=== PATIENT | female | born 1970 | race Caucasian/White ===

== ENCOUNTER 2016-08-05 19:05 | Emergency (ER) | payer OTHER ==
[~2016-08-05] VITALS: Ht 149.9 cm; Wt 102.3 kg
[~2016-08-05 19:05] MED LIST: ATV5X PO; CYM/30 PO; DESM0.1T8 PO; LEVO25TA5 PO; MONT1TAB3 PO; NRN600 PO; OMEP20CA9 PO; RANI150T2 PO; RBX500 PO; SIMV-151 PO
[2016-08-05] MEDS ORDERED: DSY/150 PO (19:25)
[2016-08-05] MEDS ORDERED: TEMA30CA4 PO (19:25)
[2016-08-05] MEDS ORDERED: HYDR-5688 PO (19:25)
[2016-08-05 19:27] VITALS: Ht 149.9 cm; Wt 102.3 kg
[2016-08-05 19:38] VITALS: O2SAT 97
[2016-08-05] MEDS ORDERED: SODIUM CHLORIDE 0.9% 1000ML 1,000 ML IV STA (19:42)
[2016-08-05] MEDS ORDERED: ONDANSETRON 8 MG/54 ML D5W IV STA (19:42)
[2016-08-05 20:08] LABS: BASO % 0.3 %; BASO ABS # 0.02 K/uL (0-0.2); COMPLETE YES; EOS % 1.5 %; HEMATOCRIT 35.8 % (37-47); IG% 0.1 %; LYMPH % 35.3 %; MEAN CELL VOLUME 87.3 fL (80-100); MEAN CORPUSCULAR HEMOGLOBIN 29.3 pg (25-34); MEAN CORPUSCULAR HGB CONC 33.5 g/dl (32-36); MEAN PLATELET VOLUME 9.5 fL (7.4-10.4); NEUT % 53.8 %; PLATELET COUNT 312 K/uL (130-400); WHITE BLOOD COUNT 6.79 K/uL (4.8-10.8)
--- NOTE | 2016-08-05 20:18 | DIAGNOSTIC IMAGING REPORT ---
CT SCAN OF THE BRAIN WITHOUT IV CONTRAST CLINICAL HISTORY: Weakness. Change in mental status. COMPARISON STUDY: CT of the brain dated 03/23/2016. TECHNIQUE: Unenhanced axial CT scan of the brain is performed from the vertex to the skull base. Automated dose control exposure was utilized. CT DOSE: 537.48 mGy.cm FINDINGS: Brain parenchyma: The brain parenchyma is normal in appearance. There is no hemorrhage, mass effect, or evidence of acute territorial ischemia by CT criteria. Bhatia-white matter is preserved. No extra-axial fluid collection is seen. Ventricles, sulci, cisterns: Normal in configuration. Intracranial vasculature: The visualized intracranial vasculature at the skull base is normal in appearance. Calvarium: Unremarkable. Sinuses and mastoids: There is evidence of previous paranasal sinus surgery. The visualized paranasal sinuses are clear. The mastoid air cells are well pneumatized. Orbits: The bony orbits are grossly intact. IMPRESSION: No acute intracranial abnormality. Electronically signed by: Js Bennett M.D. 08/05/2016 8:16 PM Dictated Date/Time: 08/05/2016 8:15 PM
[2016-08-05 20:19] LABS: INR 1.1 (0.9-1.1); PARTIAL THROMBOPLASTIN RATIO 1.3; PROTHROMBIN TIME (PATIENT) 11.7 SECONDS (9.0-12.0)
[2016-08-05 20:23] LABS: ALT/SGPT 38 U/L (12-78); AST/SGOT 14 U/L (15-37); BLOOD UREA NITROGEN 10 mg/dl (7-18); BUN/CREATININE RATIO 13.4 (10-20); CALCIUM 8.7 mg/dl (8.5-10.1); CARBON DIOXIDE 26 mmol/L (21-32); CHLORIDE 107 mmol/L (98-107); CREATININE 0.71 mg/dl (0.60-1.20); GLUCOSE 99 mg/dl (70-99); MAGNESIUM 2.4 mg/dl (1.8-2.4); POTASSIUM 3.5 mmol/L (3.5-5.1); SODIUM 142 mmol/L (136-145)
[2016-08-05 20:32] LABS: ALKALINE PHOSPHATASE 74 U/L (45-117); CKMB/CK RATIO 0.9 (0-3.0); THYROID STIMULATING HORMONE 0.618 uIu/ml (0.300-4.500)
--- NOTE | 2016-08-05 20:38 | DIAGNOSTIC IMAGING REPORT ---
SINGLE VIEW CHEST CLINICAL HISTORY: Weakness. Change in mental status. FINDINGS: An AP, portable, upright chest radiograph is compared to study dated 04/11/2016. Correlation is made with chest CT dated 01/28/2016. The examination is degraded by portable technique, large body habitus, and patient rotation. The cardiomediastinal silhouette is unremarkable. The lungs and pleural spaces are clear. No pneumothorax is seen. The bony thorax is grossly intact. IMPRESSION: No active disease in the chest. Electronically signed by: Js Bennett M.D. 08/05/2016 8:37 PM Dictated Date/Time: 08/05/2016 8:37 PM
[2016-08-05] MEDS ORDERED: TOPI50TA16 PO (20:39)
[2016-08-05] MEDS ORDERED: RIBOCAP PO (20:39)
[2016-08-05] MEDS ORDERED: MAGN400T6 PO (20:39)
[2016-08-05] MEDS ORDERED: LVNIS100 SQ (20:39)
[2016-08-05] MEDS ORDERED: DULO-24 PO (20:39)
[2016-08-05] MEDS ORDERED: METF500T5 PO (20:39)
[2016-08-05 20:43] LABS: URINE APPEARANCE CLEAR (CLEAR); URINE BILIRUBIN NEG (NEG); URINE COLOR DK YELLOW; URINE NITRITE NEG (NEG); URINE PH 6.5 (4.5-7.5); URINE SPECIFIC GRAVITY 1.016 (1.000-1.030); UROBILINOGEN NEG (NEG); ZZUR CULT IF INDIC CLEAN CATCH NO
--- NOTE | 2016-08-05 20:46 | EMERGENCY ROOM VISIT NOTE ---
History Report prepared by Cl: Emory Collado Under the Supervision of: Dr. Julito Ty D.O. First contact with patient: 19:33 Chief Complaint: SYNCOPE Stated Complaint: SYNCOPE History of Present Illness The patient is a 46 year old female who presents to the Emergency Room with complaints of an episode of syncope occurring earlier today. Per the nurse, she has had a headache all day to day, and had a syncopal episode. She has had pain in the back of her head and neck rated a 10/10 in severity. She has a history of syncope. She has numbness and tingling in her left hand radiating to her fingers. She is currently dizzy and slightly nauseous. 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 The fall was witnessed by the patient's daughter. Per the patient's daughter, she did not notice if she hit her head. After the fall, the patient was unconscious, but was awaken with verbal stimuli. She did not vomit. The patient is on Xarelto from a blood clot in her lungs from this past January. She has a follow-up appointment next week, along with an MRA. The patient admits to a history of migraines, and notes they are occurring more frequently. Source of History: patient, family, nursing staff Onset: earlier today Position: other (global) Quality: other (syncope) Timing: other (episode) Associated Symptoms: + nausea, + neck pain, + numbness, + weakness, No vomiting Note: The patient notes having dizziness, and head pain. Review of Systems See HPI for pertinent positives & negatives. A total of 10 systems reviewed and were otherwise negative. Past Medical & Surgical Medical Problems: (1) Asthma (2) Bronchitis (3) Fibromyalgia (4) Hyperlipidemia (5) Hypothyroidism (6) Irritable bowel syndrome Surgical Problems: (1) History of carpal tunnel surgery (2) History of delivery (3) History of cholecystectomy (4) History of hernia repair (5) History of tonsillectomy (6) History of uvulectomy (7) Status post breast reduction Family History Diabetes mellitus Gallbladder disease Heart disease Kidney disease Kidney stones Social History Smoking Status: Former Smoker Alcohol Use: occasionally Marital Status: in relationship Housing Status: lives with significant other Occupation Status: employed Current/Historical Medications Scheduled Desmopressin Acetate (Desmopressin Acetate), 0.1 MG PO BID Duloxetine Hcl (Cymbalta), 80 MG PO DAILY Gabapentin (Gabapentin), 900 MG PO TID Levothyroxine Sodium (Levothyroxine Sodium), 25 MCG PO QAM Magnesium Oxide (Mag-Ox), 200 MG PO BID Metformin Hcl Er (Glucophage Er), 500 MG PO QPM Montelukast Sodium (Singulair), 10 MG PO HS Omeprazole (Prilosec), 20 MG PO DAILY Ranitidine HCl (Ranitidine HCl), 150 MG PO BID Riboflavin (B-2-400), 400 MG PO DAILY Rivaroxaban (Xarelto), 20 MG PO DAILY Simvastatin (Simvastatin), 20 MG PO HS Topiramate (Topamax), 50 MG PO HS Trazodone HCl (Trazodone HCl), 150 MG PO HS Scheduled PRN Lorazepam (Lorazepam), 0.5 MG PO UD PRN for Anxiety Methocarbamol (Methocarbamol), 500 MG PO QID PRN for Muscle Spasm Temazepam (Restoril), 30 MG PO HS PRN for Sleep Allergies Coded Allergies: Bupropion (Verified Allergy, Severe, SKIN BREAKDOWN, 04/10/16) Loracarbef (Verified Allergy, Intermediate, HIVES, 04/10/16) Naproxen (Verified Allergy, Intermediate, HIVES, 04/10/16) Penicillins (Verified Allergy, Intermediate, HIVES, 04/10/16) Sulfa Antibiotics (Verified Allergy, Intermediate, HIVES, 04/10/16) Torsemide (Verified Allergy, Intermediate, HIVES - PATIENT CAN TOLERATE LASIX, 04/10/16) Cephalosporins (Verified Allergy, Unknown, hives, 04/10/16) Hydrochlorothiazide (Unverified Allergy, Unknown, UNKNOWN, 04/10/16) Physical Exam Vital Signs Date Time Temp Pulse Resp B/P Pulse Ox O2 Delivery O2 Flow Rate FiO2 08/05/16 19:48 75 18 118/79 85 125/84 90 127/71 08/05/16 19:38 97 Room Air 08/05/16 19:29 82 08/05/16 19:27 36.7 79 18 120/78 98 Room Air Physical Exam CONSTITUTIONAL/VITAL SIGNS: Reviewed / noted above. GENERAL: Non-toxic in appearance. INTEGUMENTARY: Warm, dry, and [place]. HEAD: Normocephalic. EYES: without scleral icterus or trauma. ENT/OROPHARYNX: clear and moist. LYMPHADENOPATHY/NECK: Is supple without lymphadenopathy or meningismus. RESPIRATORY: Lungs clear and equal. CARDIOVASCULAR: Regular rate and rhythm. GI/ABDOMEN: Soft and nontender. No organomegaly or pulsatile mass. No rebound or guarding. Normal bowel sounds. EXTREMITIES: Warm and well perfused. BACK: No CVA tenderness. NEUROLOGICAL: Intact without focal deficits. PSYCHIATRIC: normal affect. MUSCULOSKELETAL: Normally developed with good muscle tone. Medical Decision & Procedures ER Provider Diagnostic Interpretation: Radiology results as stated below per my review and radiologist interpretation: CT SCAN OF THE BRAIN WITHOUT IV CONTRAST FINDINGS: Brain parenchyma: The brain parenchyma is normal in appearance. There is no hemorrhage, mass effect, or evidence of acute territorial ischemia by CT criteria. Bhatia-white matter is preserved. No extra-axial fluid collection is seen. Ventricles, sulci, cisterns: Normal in configuration. Intracranial vasculature: The visualized intracranial vasculature at the skull base is normal in appearance. Calvarium: Unremarkable. Sinuses and mastoids: There is evidence of previous paranasal sinus surgery. The visualized paranasal sinuses are clear. The mastoid air cells are well pneumatized. Orbits: The bony orbits are grossly intact. IMPRESSION: No acute intracranial abnormality. Electronically signed by: Js Bennett M.D. 08/05/2016 8:16 PM Dictated Date/Time: 08/05/2016 8:15 PM SINGLE VIEW CHEST FINDINGS: An AP, portable, upright chest radiograph is compared to study dated 04/11/2016. Correlation is made with chest CT dated 01/28/2016. The examination is degraded by portable technique, large body habitus, and patient rotation. The cardiomediastinal silhouette is unremarkable. The lungs and pleural spaces are clear. No pneumothorax is seen. The bony thorax is grossly intact. IMPRESSION: No active disease in the chest. Electronically signed by: Js Bennett M.D. 08/05/2016 8:37 PM Dictated Date/Time: 08/05/2016 8:37 PM Laboratory Results 08/05/16 19:50 Red Blood Count 4.10, Mean Corpuscular Volume 87.3, Mean Corpuscular Hemoglobin 29.3, Mean Corpuscular Hemoglobin Concent 33.5, Mean Platelet Volume 9.5, Neutrophils (%) (Auto) 53.8, Lymphocytes (%) (Auto) 35.3, Monocytes (%) (Auto) 9.0, Eosinophils (%) (Auto) 1.5, Basophils (%) (Auto) 0.3, Neutrophils # (Auto) 3.65, Lymphocytes # (Auto) 2.40, Monocytes # (Auto) 0.61, Eosinophils # (Auto) 0.10, Basophils # (Auto) 0.02 08/05/16 19:50 Test 08/05/16 19:50 08/05/16 20:08 White Blood Count 6.79 K/uL (4.8-10.8) Red Blood Count 4.10 M/uL (4.2-5.4) Hemoglobin 12.0 g/dL (12.0-16.0) Hematocrit 35.8 % (37-47) Mean Corpuscular Volume 87.3 fL (80-100) Mean Corpuscular Hemoglobin 29.3 pg (25-34) Mean Corpuscular Hemoglobin Concent 33.5 g/dl (32-36) Platelet Count 312 K/uL (130-400) Mean Platelet Volume 9.5 fL (7.4-10.4) Neutrophils (%) (Auto) 53.8 % Lymphocytes (%) (Auto) 35.3 % Monocytes (%) (Auto) 9.0 % Eosinophils (%) (Auto) 1.5 % Basophils (%) (Auto) 0.3 % Neutrophils # (Auto) 3.65 K/uL (1.4-6.5) Lymphocytes # (Auto) 2.40 K/uL (1.2-3.4) Monocytes # (Auto) 0.61 K/uL (0.11-0.59) Eosinophils # (Auto) 0.10 K/uL (0-0.5) Basophils # (Auto) 0.02 K/uL (0-0.2) RDW Standard Deviation 48.1 fL (36.4-46.3) RDW Coefficient of Variation 14.9 % (11.5-14.5) Immature Granulocyte % (Auto) 0.1 % Immature Granulocyte # (Auto) 0.01 K/uL (0.00-0.02) Prothrombin Time 11.7 SECONDS (9.0-12.0) Prothromb Time International Ratio 1.1 (0.9-1.1) Activated Partial Thromboplast Time 33.4 SECONDS (21.0-31.0) Partial Thromboplastin Ratio 1.3 Anion Gap 9.0 mmol/L (3-11) Est Creatinine Clear Calc Drug Dose 103.4 ml/min Estimated GFR () 117.6 Estimated GFR (Non- 101.4 BUN/Creatinine Ratio 13.4 (10-20) Calcium Level 8.7 mg/dl (8.5-10.1) Magnesium Level 2.4 mg/dl (1.8-2.4) Total Bilirubin 0.3 mg/dl (0.2-1) Direct Bilirubin < 0.1 mg/dl (0-0.2) Aspartate Amino Transf (AST/SGOT) 14 U/L (15-37) Alanine Aminotransferase (ALT/SGPT) 38 U/L (12-78) Alkaline Phosphatase 74 U/L (45-117) Total Creatine Kinase 90 U/L (26-192) Creatine Kinase MB 0.8 ng/ml (0.5-3.6) Creatine Kinase MB Ratio 0.9 (0-3.0) Troponin I < 0.015 ng/ml (0-0.045) Total Protein 7.1 gm/dl (6.4-8.2) Albumin 4.0 gm/dl (3.4-5.0) Lipase 160 U/L (73-393) Thyroid Stimulating Hormone (TSH) 0.618 uIu/ml (0.300-4.500) Urine Color DK YELLOW Urine Appearance CLEAR (CLEAR) Urine pH 6.5 (4.5-7.5) Urine Specific [place] 1.016 (1.000-1.030) Urine Protein NEG (NEG) Urine Glucose (UA) NEG (NEG) Urine Ketones NEG (NEG) Urine Occult Blood NEG (NEG) Urine Nitrite NEG (NEG) Urine Bilirubin NEG (NEG) Urine Urobilinogen NEG (NEG) Urine Leukocyte Esterase SMALL (NEG) Urine WBC (Auto) 1-5 /hpf (0-5) Urine RBC (Auto) 0-4 /hpf (0-4) Urine Hyaline Casts (Auto) 0 /lpf (0-5) Urine Epithelial Cells (Auto) 5-10 /lpf (0-5) Urine Bacteria (Auto) NEG (NEG) Laboratory results as stated above per my review. Medications Administered Medications (Trade) Dose Ordered Sig/Tyler Route Start Time Stop Time Status Last Admin Dose Admin Sodium Chloride (Nss 1000ml) 1,000 ml @ 999 mls/hr Q1H1M STAT IV 08/05/16 19:42 08/05/16 20:42 DC 08/05/16 20:05 999 MLS/HR Ondansetron HCl (Zofran 8mg Iv) 8 mg NOW STAT IV 08/05/16 19:42 08/05/16 19:43 DC 08/05/16 20:06 8 MG ECG Indication: syncope Rate (beats per minute): 67 Rhythm: normal sinus Findings: no acute ischemic change, no ectopy ED Course 1933: Previous medical records were reviewed. The patient was evaluated in room B5. A complete history and physical examination was performed. 1941: Ordered Ondansetron HCl 8 mg IV, and NSS 1,000 ml @ 999 mls/hr IV. 2047: On reevaluation, the patient is doing well. I discussed the results and findings with the patient. She verbalized agreement of the treatment plan. The patient was discharged home. Medical Decision Differential includes acute cardiac dysrhythmia, microinfarction, CVA, TIA, dehydration, anemia, electrolyte disturbance, seizure, trauma, intracranial bleeding, acute vascular catastrophe, thoracic aortic dissection, PE, abdominal aortic aneurysm rupture. This is a 46-year-old female who presents to the ED with a chief complaint of syncope. The patient's states that she has had a headache all day. 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 She developed nausea and dizziness at that time as well. The patient was near her daughter and her daughter states she did not hit her head. The patient states that this is happened once before and she was told it was related to migraines. The patient reported some numbness in her left arm in the left distal forearm. She did not have any diaphoresis or seizure-like activity. The patient awoke shortly after the occurrence. She is brought here by EMS. Her neurological exam and physical exam are normal this time. She is on anticoagulation for history of PE. She denies any specific complaints other than nausea and headache at this time. CT scan of the brain was negative for acute disease. A chest x-ray is negative for acute disease. CBC and complete metabolic panel were normal. Troponin is negative. TSH is normal. The patient 's cause for syncope is unclear at this time. It does not appear there is any significant medical process or metabolic process found this time per she does not appear to have suffered any trauma. The patient is felt to be stable for discharge. This could be related to her previous migraine related syncope as she was told prior. At the time of discharge, the patient did request something for headache. She declined Toradol as she states that she is on anticoagulation. The patient was treated with Decadron IV, Compazine IV and Benadryl IV. She is felt to be stable for discharge. Impression Primary Impression: Syncope Scribe Attestation The scribe's documentation has been prepared under my direction and personally reviewed by me in its entirety. I confirm that the note above accurately reflects all work, treatment, procedures, and medical decision making performed by me. Departure Information Dispostion Home / Self-Care Referrals Jamia Carlton D.O. (PCP) Patient Instructions ED Near Syncope [facility], [facility] Additional Instructions Follow-up with your doctor for further care and evaluation in 1-5 days. Return to the emergency department for worsening or new symptoms or any concerns. You have been examined and treated today on an emergency basis only. This is not a substitute for, or an effort to provide, complete comprehensive medical care. It is impossible to recognize and treat all injuries or illnesses in a single emergency department visit. It is therefore important that you follow up closely with your doctor. Call as soon as possible for an appointment.
[2016-08-05 20:47] LABS: MANUAL MICROSCOPIC REQUIRED? NO; REVIEW REQ? NO
[2016-08-05] MEDS ORDERED: KETOROLAC TROMETHAMINE 30 MG/ML VIAL IV STA (21:04)
[2016-08-05] MEDS ORDERED: DiphenhydrAMINE HCL 50 MG/ML VIAL IV STA (21:06)
[2016-08-05] MEDS ORDERED: PROCHLORPERAZINE 5 MG/ML 2 ML VIAL IV STA (21:06)
[2016-08-05] MEDS ORDERED: DEXAMETHASONE SOD INJ 10 MG/ML VIAL IV ONE (21:15)
[2016-08-05 21:24] VITALS: BP 127/71; PULSE 90; TEMP 36.7; O2SAT 97
[2016-08-05] MEDS ORDERED: RIVA1TAB4 PO (23:28)
[2016-11-01] MEDS ORDERED: DULO60CA44 PO (14:05)
[2016-11-01] MEDS ORDERED: DICY20TA35 PO (14:05)
[2016-11-01] MEDS ORDERED: FLUT0.15 (14:05)
[2016-11-01] MEDS ORDERED: HYDR-5688 PO (14:05)
[2016-11-01] MEDS ORDERED: MECL1TAB42 PO (14:05)
[2016-11-01] MEDS ORDERED: METH1TAB81 PO (14:05)
[2016-11-01] MEDS ORDERED: OMEP40CA41 PO (14:05)
[2016-11-01] MEDS ORDERED: TRAZ50TA35 PO (14:05)
[2016-11-01] MEDS ORDERED: TRAZ100T29 PO (14:05)
[2016-11-25] MEDS ORDERED: ENOX40IN SQ (13:26)
[2016-11-25] MEDS ORDERED: RXC5 PO (13:26)
== END 2016-08-05 21:24 | disposition home or self-care (01) ==
LOC: EDBD 19:05 → C.EDB 19:06
DX: R55 Syncope and collapse (principal); E78.5 Hyperlipidemia, unspecified; E03.9 Hypothyroidism, unspecified; J45.909 Unspecified asthma, uncomplicated; K58.9 Irritable bowel syndrome, unspecified; Z90.49 Acquired absence of other specified parts of digestive tract; Z98.890 Other specified postprocedural states; Z87.891 Personal history of nicotine dependence; Z79.899 Other long term (current) drug therapy; Z88.0 Allergy status to penicillin; Z88.2 Allergy status to sulfonamides; Z88.8 Allergy status to other drugs, medicaments and biological substances; Z83.3 Family history of diabetes mellitus; Z83.79 Family history of other diseases of the digestive system; Z82.49 Family history of ischemic heart disease and other diseases of the circulatory system; Z84.1 Family history of disorders of kidney and ureter

== ENCOUNTER 2016-10-06 15:05 | Emergency (ER) | payer OTHER ==
[~2016-10-06] VITALS: Ht 149.9 cm; Wt 94.6 kg
[~2016-10-06 15:05] MED LIST changes: -CYM/30 PO; +DSY/150 PO; +DULO-24 PO; +MAGN400T6 PO; +METF500T5 PO; +RIBOCAP PO; +RIVA1TAB4 PO; +TEMA30CA4 PO; +TOPI50TA16 PO
[2016-10-06 15:08] VITALS: TEMP 36.6; Ht 149.9 cm; Wt 94.6 kg
[2016-10-06] MEDS ORDERED: ONDANSETRON INJ 2 MG/ML 2 ML VIAL IV STA (15:46)
[2016-10-06] MEDS ORDERED: SODIUM CHLORIDE 0.9% 1000ML 1,000 ML IV STA (15:46)
[2016-10-06] MEDS ORDERED: OPTIRAY 320 IV PRN (16:00)
[2016-10-06] MEDS ORDERED: MoRPHine SULFATE 10 MG/ML CARP/VIAL IV PRN (16:00)
[2016-10-06 16:35] LABS: BASO % 0.1 %; BASO ABS # 0.01 K/uL (0-0.2); COMPLETE YES; EOS % 2.2 %; HEMATOCRIT 38.3 % (37-47); IG% 0.4 %; LYMPH ABS # 2.36 K/uL (1.2-3.4); MEAN CELL VOLUME 90.5 fL (80-100); MEAN CORPUSCULAR HEMOGLOBIN 29.6 pg (25-34); MEAN CORPUSCULAR HGB CONC 32.6 g/dl (32-36); MEAN PLATELET VOLUME 10.1 fL (7.4-10.4); MONO % 9.4 %; NEUT % 53.9 %; PLATELET COUNT 318 K/uL (130-400); RED BLOOD COUNT 4.23 M/uL (4.2-5.4); WHITE BLOOD COUNT 6.95 K/uL (4.8-10.8)
[2016-10-06 16:41] LABS: URINE APPEARANCE CLEAR (CLEAR); URINE BILIRUBIN NEG (NEG); URINE COLOR YELLOW; URINE NITRITE NEG (NEG); URINE SPECIFIC GRAVITY 1.015 (1.000-1.030); UROBILINOGEN NEG (NEG)
[2016-10-06 16:42] LABS: MANUAL MICROSCOPIC REQUIRED? NO; REVIEW REQ? NO
[2016-10-06] MEDS ORDERED: ERGO500037 PO (16:45)
[2016-10-06 16:54] LABS: ALT/SGPT 28 U/L (12-78); AST/SGOT 14 U/L (15-37); BLOOD UREA NITROGEN 9 mg/dl (7-18); BUN/CREATININE RATIO 11.4 (10-20); CALCIUM 8.9 mg/dl (8.5-10.1); CARBON DIOXIDE 27 mmol/L (21-32); CHLORIDE 111 mmol/L (98-107); CREATININE 0.75 mg/dl (0.60-1.20); GLUCOSE 88 mg/dl (70-99); POTASSIUM 3.6 mmol/L (3.5-5.1); SODIUM 145 mmol/L (136-145)
[2016-10-06 16:57] LABS: ALKALINE PHOSPHATASE 74 U/L (45-117)
--- NOTE | 2016-10-06 18:29 | DIAGNOSTIC IMAGING REPORT ---
CT OF THE ABDOMEN AND PELVIS WITH CONTRAST CLINICAL HISTORY: Left-sided abdominal pain. COMPARISON STUDY: CT of the abdomen and pelvis December 23, 2014. TECHNIQUE: Following IV administration of 94 mL of Optiray-320, axial images of the abdomen and pelvis were obtained from the lung bases to the proximal femurs. Images were reviewed in the axial, sagittal, and coronal planes. IV contrast was administered without complication. CT DOSE: 1269.76 mGy.cm FINDINGS: Lung bases are clear. Cardiac size is at the upper limits of normal. The liver, spleen, adrenal glands, kidneys and pancreas are unremarkable. No peripancreatic infiltration is present. There is no biliary ductal dilatation status post cholecystectomy. There is no hydronephrosis. Note is made of left colon diverticulosis without evidence for acute diverticulitis. There are postsurgical findings in the anterior abdominal wall. There is no evidence for a bowel obstruction. The appendix is not visualized but there is no right lower quadrant inflammation. No suspicious skeletal lesions are identified. There is no abscess or ascites. The uterus is not visualized and likely surgically absent. IMPRESSION: 1. No acute process within the abdomen or pelvis. 2. Sigmoid diverticulosis without evidence for acute diverticulitis. 3. No biliary ductal dilatation status post cholecystectomy. Electronically signed by: Terrence Ludwig M.D. 10/06/2016 6:28 PM Dictated Date/Time: 10/06/2016 6:22 PM
[2016-10-06] MEDS ORDERED: ONDA4TAB46 PO (18:46)
[2016-10-06 18:58] VITALS: BP 116/76; PULSE 76; O2SAT 98
--- NOTE | 2016-10-07 02:06 | EMERGENCY ROOM VISIT NOTE ---
ED Visit Note First contact with patient: 15:34 Chief Complaint: Abdominal pain and diarrhea. History of Present Illness: Ms. Shaw is a 46 year-old white female complaining of left lower quadrant abdominal pain and diarrhea. Historically patient reports a history of C. difficile last year which required fecal transplant last January; since that time she has not had any diarrhea. Additionally she reports she has had multiple surgeries including multiple sections, abdominal hernia repair and hysterectomy. She has had a colonoscopy which shows that she has a history of diverticulosis. Patient reports her symptoms started approximately 1.5 weeks ago with diarrhea. She reports for most of the first 1.5 weeks she was having 4-5 episodes of mostly watery stools that were lighting color. 2 days ago she reports she had 12 episodes of diarrhea which once again was watery and light color. She goes on to report that yesterday approximately 26 hours before she arrived in the emergency department she had an acute onset of left lower quadrant pain. Since that time her pain has been constant. She describes her pain as a squeezing sensation. She rates her discomfort 6/10. The pain is nonradiating. She has not identified any aggravating or alleviating factors related to the pain. She has not taken any medications for her pain or diarrhea prior to arrival at the hospital. Associated with her pain today she reports after breakfast she became nauseated and since that time she has had multiple episodes of vomiting and last evening she had low-grade fever of 99.7F. Patient denies chills, sweats, skin eruptions, skin color changes, upper respiratory tract symptoms, shortness of breath, chest pain, rectal bleeding, black/tarry stools, urinary symptoms, hematuria, vaginal bleeding, vaginal discharge, back/flank pain. Review of Systems: As noted above in history of present illness. All body systems were reviewed and found to be negative as noted above. Past Medical History: As previously noted and unspecified kidney disease, bronchitis, pneumonia, pulmonary embolism, unspecified urinary symptoms, fibromyalgia, thyroid disease, depression, anxiety, GERD, unspecified sleeping disorder. Current Medications: Medications Dose Route/Sig Max Daily Dose Days Date Category Dose Instructions Zofran (Ondansetron HCl) 4 Mg Tab 4 Mg PO Q6H PRN 10/06/16 Rx Vitamin D 67244 Unit (Ergocalciferol) 50,000 Unit Cap 50,000 Unit PO WK 10/06/16 Reported SATURDAYS Glucophage Er (Metformin HCl) 500 Mg Tab 500 Mg PO QPM 08/05/16 Reported Topamax (Topiramate) 50 Mg Tab 50 Mg PO HS 08/05/16 Reported Cymbalta (Duloxetine Hcl) 20 Mg Cap 80 Mg PO DAILY 08/05/16 Reported Xarelto (Rivaroxaban) 20 Mg Tab 20 Mg PO DAILY 04/10/16 Reported Singulair (Montelukast Sodium) 10 Mg Tab 10 Mg PO HS 02/11/16 Reported Restoril (Temazepam) 30 Mg Cap 30 Mg PO HS PRN 01/28/16 Reported Trazodone HCl 150 Mg Tab 150 Mg PO HS 01/28/16 Reported Desmopressin Acetate 0.1 Mg Tab 0.1 Mg PO BID 10/20/15 Reported Simvastatin 20 Mg Tab 20 Mg PO HS 10/20/15 Reported Ranitidine HCl 150 Mg Tab 150 Mg PO BID 10/20/15 Reported Prilosec (Omeprazole) 20 Mg Cap 20 Mg PO DAILY 10/20/15 Reported Lorazepam 0.5 Mg Tab 0.5 Mg PO UD PRN 10/20/15 Reported Gabapentin 600 Mg Tab 900 Mg PO TID 10/20/15 Reported Levothyroxine Sodium 25 Mcg Tab 25 Mcg PO QAM 02/11/15 Reported Allergies to Medications: Cephalosporins, hydrochlorothiazide, naproxen, penicillin, sulfa, bupropion, loracarbef. Social History: Patient is currently employed; she feels safe in her home environment; she denies tobacco use. Physical Examination: Vital Signs: Date Time Temp Pulse Resp B/P Pulse Ox O2 Delivery O2 Flow Rate FiO2 10/06/16 18:58 76 16 116/76 98 10/06/16 18:24 72 16 105/67 99 Room Air 10/06/16 16:54 56 16 123/69 97 Room Air 10/06/16 16:13 68 10/06/16 15:08 36.6 78 16 118/76 94 Room Air GENERAL: 46-year-old female in mild distress due to pain, nontoxic-appearing, afebrile and hemodynamically stable. NEUROLOGICAL: Awake, alert and oriented to person, place and time. Answering questions appropriately and following commands. Normal gait. Good hand eye coordination. SKIN: Warm, dry and pink. No soft tissue eruptions or trauma noted. HEENT: Atraumatic and normocephalic. PERRLA. Sclera white and conjunctiva pink. Oral cavity moist and pink. Pharynx is nonerythematous or edematous. Speech normal. No lymphadenopathy. Trachea midline. No jugular venous distention. BACK: No tenderness over the bony spine. No CVA tenderness. THORAX: Lungs sounds are clear to auscultation and equal bilaterally with symmetrical chest wall. No wheezing, rales or rhonchi. No crepitus, tenderness , subcutaneous air or deformities noted. HEART: Regular rate and rhythm. No gallops, rubs or murmurs are appreciated. ABDOMEN: Soft with mild tenderness in the left lower quadrant. Decreased bowel sounds in all quadrants. No guarding, rigidity or organomegaly. EXTREMITIES: Moves all extremities well on command and with purpose. All distal neurovascular statuses are intact and equal bilaterally. ED Course: Patient is assessed as noted above. Laboratory Testing: Test 10/06/16 16:00 10/06/16 16:10 Range/Units Urine Color YELLOW Urine Appearance CLEAR CLEAR Urine pH 6.0 4.5-7.5 Urine Specific [place] 1.015 1.000-1.030 Urine Protein NEG NEG Urine Glucose (UA) NEG NEG Urine Ketones NEG NEG Urine Occult Blood NEG NEG Urine Nitrite NEG NEG Urine Bilirubin NEG NEG Urine Urobilinogen NEG NEG Urine Leukocyte Esterase TRACE NEG Urine WBC (Auto) 1-5 0-5 /hpf Urine RBC (Auto) 0-4 0-4 /hpf Urine Hyaline Casts (Auto) 0 0-5 /lpf Urine Epithelial Cells (Auto) 10-20 0-5 /lpf Urine Bacteria (Auto) NEG NEG White Blood Count 6.95 4.8-10.8 K/uL Red Blood Count 4.23 4.2-5.4 M/uL Hemoglobin 12.5 12.0-16.0 g/dL Hematocrit 38.3 37-47 % Mean Corpuscular Volume 90.5 80-100 fL Mean Corpuscular Hemoglobin 29.6 25-34 pg Mean Corpuscular Hemoglobin Concent 32.6 32-36 g/dl Platelet Count 318 130-400 K/uL Mean Platelet Volume 10.1 7.4-10.4 fL Neutrophils (%) (Auto) 53.9 % Lymphocytes (%) (Auto) 34.0 % Monocytes (%) (Auto) 9.4 % Eosinophils (%) (Auto) 2.2 % Basophils (%) (Auto) 0.1 % Neutrophils # (Auto) 3.75 1.4-6.5 K/uL Lymphocytes # (Auto) 2.36 1.2-3.4 K/uL Monocytes # (Auto) 0.65 0.11-0.59 K/uL Eosinophils # (Auto) 0.15 0-0.5 K/uL Basophils # (Auto) 0.01 0-0.2 K/uL RDW Standard Deviation 49.1 36.4-46.3 fL RDW Coefficient of Variation 14.8 11.5-14.5 % Immature Granulocyte % (Auto) 0.4 % Immature Granulocyte # (Auto) 0.03 0.00-0.02 K/uL Sodium Level 145 136-145 mmol/L Potassium Level 3.6 3.5-5.1 mmol/L Chloride Level 111 98-107 mmol/L Carbon Dioxide Level 27 21-32 mmol/L Anion Gap 7.0 3-11 mmol/L Blood Urea Nitrogen 9 7-18 mg/dl Creatinine 0.75 0.60-1.20 mg/dl Est Creatinine Clear Calc Drug Dose 93.4 ml/min Estimated GFR () 110.0 Estimated GFR (Non- 94.9 BUN/Creatinine Ratio 11.4 10-20 Random Glucose 88 70-99 mg/dl Calcium Level 8.9 8.5-10.1 mg/dl Total Bilirubin 0.3 0.2-1 mg/dl Direct Bilirubin < 0.1 0-0.2 mg/dl Aspartate Amino Transf (AST/SGOT) 14 15-37 U/L Alanine Aminotransferase (ALT/SGPT) 28 12-78 U/L Alkaline Phosphatase 74 45-117 U/L Total Protein 7.1 6.4-8.2 gm/dl Albumin 4.0 3.4-5.0 gm/dl Lipase 132 73-393 U/L Patient unable to provide a stool sample. CT Abdomen/Pelvis with Contrast was reviewed by myself and read by the radiologist and shows no acute process within the abdomen or pelvis, sigmoid diverticulosis without evidence of diverticulitis and no biliary duct dilatation status post cholecystectomy. Patient was hydrated with normal saline and she received 4 mg of morphine IV for pain and 4 mg of Zofran IV. Patient was reassessed multiple times during her stay in the emergency department. Patient's case was reviewed with Dr. Patrick; we agreed on diagnostic approach, treatment, disposition and plan. Patient was educated about today's findings and instructed on her treatment plan ; she verbalizes understanding and agreement with this plan. Clinical Impression: Acute left lower quadrant abdominal pain. Diarrhea. Nausea/vomiting. Decision-Making: Initially my differential diagnosis I considered return of C. difficile, diarrhea syndrome, colitis, ovarian cyst rupture, ovarian torsion, kidney stone, and other causes. Disposition: Patient discharged home in stable condition; prior to departure she was reassessed and subjectively reported that she was pain-free. Plan: Patient was encouraged to use 650 mg of acetaminophen every 6 hours as needed for pain and avoid NSAID use. Patient was given a prescription for Zofran 4 mg every 6 hours as needed nausea/ vomiting. Patient was encouraged to stay well hydrated. Patient was encouraged use a bland diet for the next 48 hours. Patient was encouraged to collect a stool sample and take it to her PCPs office for follow-up testing. Patient was encouraged to follow-up with her PCP. Patient was encouraged return to the ED for worsening/uncontrolled pain, uncontrolled diarrhea, uncontrolled vomiting, return of bloody diarrhea, bloody stools, bloody vomiting or any new/concerning symptoms.
[2016-11-01] MEDS ORDERED: FLUT0.15 (14:05)
[2016-11-01] MEDS ORDERED: TRAZ100T29 PO (14:05)
[2016-11-01] MEDS ORDERED: HYDR-5688 PO (14:05)
[2016-11-01] MEDS ORDERED: METH1TAB81 PO (14:05)
[2016-11-01] MEDS ORDERED: DICY20TA35 PO (14:05)
[2016-11-01] MEDS ORDERED: OMEP40CA41 PO (14:05)
[2016-11-01] MEDS ORDERED: TRAZ50TA35 PO (14:05)
[2016-11-01] MEDS ORDERED: DULO60CA44 PO (14:05)
[2016-11-01] MEDS ORDERED: MECL1TAB42 PO (14:05)
[2016-11-25] MEDS ORDERED: ENOX40IN SQ (13:26)
[2016-11-25] MEDS ORDERED: RXC5 PO (13:26)
== END 2016-10-06 18:59 | disposition home or self-care (01) ==
LOC: C.EDB 15:07 → C.EDC 18:59
DX: R10.32 Left lower quadrant pain (principal); R19.7 Diarrhea, unspecified; R11.2 Nausea with vomiting, unspecified; E07.9 Disorder of thyroid, unspecified; N28.9 Disorder of kidney and ureter, unspecified; F32.9 Major depressive disorder, single episode, unspecified; F41.9 Anxiety disorder, unspecified; M79.7 Fibromyalgia; K21.9 Gastro-esophageal reflux disease without esophagitis; Z79.01 Long term (current) use of anticoagulants; Z79.84 Long term (current) use of oral hypoglycemic drugs; Z79.899 Other long term (current) drug therapy; Z86.19 Personal history of other infectious and parasitic diseases; Z86.711 Personal history of pulmonary embolism; Z87.01 Personal history of pneumonia (recurrent); Z87.09 Personal history of other diseases of the respiratory system; Z87.19 Personal history of other diseases of the digestive system; Z87.448 Personal history of other diseases of urinary system

== ENCOUNTER 2016-11-24 07:52 | Inpatient (IN) | payer OTHER ==
[2016-11-01 14:06] VITALS: BMI 42.0
--- NOTE | 2016-11-01 14:47 | PAT Medication Instructions ---
Service Date Nov 01, 2016. Current Home Medication List Desmopressin Acetate (Desmopressin Acetate), 0.1 MG PO BID Dicyclomine Hcl (Bentyl), 20 MG PO QID PRN for BOWELS Duloxetine Hcl (Cymbalta), 20 MG PO QAM Duloxetine Hcl (Cymbalta), 60 MG PO QAM Ergocalciferol (Vitamin D 39025 Unit), 50,000 UNIT PO WK Fluticasone Propionate (Nasal) (Flonase Allergy Relief), 2 SPRAY NA DAILY Gabapentin (Gabapentin), 300 MG PO TID Hydrocodone/Acetaminophen 5MG/325MG ([place] 5MG/325MG), 2 TABLETS PO QID PRN for Pain Levothyroxine Sodium (Levothyroxine Sodium), 25 MCG PO QAM Lorazepam (Lorazepam), 0.5 MG PO UD PRN for Anxiety Meclizine Hcl (Meclizine Hcl), 1 TAB PO TID PRN for DIZZY Metformin Hcl Er (Glucophage Er), 500 MG PO QPM Methylprednisolone (Medrol), 4 MG PO UD Montelukast Sodium (Singulair), 10 MG PO HS Omeprazole (Prilosec), 40 MG PO QAM Ranitidine HCl (Ranitidine HCl), 150 MG PO BID Rivaroxaban (Xarelto), 20 MG PO QAM Simvastatin (Simvastatin), 20 MG PO HS Temazepam (Restoril), 30 MG PO HS PRN for Sleep Topiramate (Topamax), 50 MG PO HS Trazodone Hcl (Trazodone), 50 MG PO HS Trazodone Hcl (Trazodone), 100 MG PO HS Medication Instructions For Your Scheduled Surgery - Hold the following medications per prescribing physician's instructions: Rivaroxaban (Xarelto), 20 MG PO QAM - Hold the following medications 48 hours prior to surgery: Metformin Hcl Er (Glucophage Er), 500 MG PO QPM - Hold the following medications the morning of surgery: Dicyclomine Hcl (Bentyl), 20 MG PO QID PRN for BOWELS - Take the following medications the morning of surgery with a sip of water OTHERWISE NOTHING TO EAT OR DRINK AFTER MIDNIGHT: Duloxetine Hcl (Cymbalta), 20 MG PO QAM Duloxetine Hcl (Cymbalta), 60 MG PO QAM Gabapentin (Gabapentin), 300 MG PO TID Hydrocodone/Acetaminophen 5MG/325MG ([place] 5MG/325MG), 2 TABLETS PO QID PRN for Pain (may take if needed up to 4 hours prior to surgery) Desmopressin Acetate (Desmopressin Acetate), 0.1 MG PO BID Levothyroxine Sodium (Levothyroxine Sodium), 25 MCG PO QAM Lorazepam (Lorazepam), 0.5 MG PO UD PRN for Anxiety Meclizine Hcl (Meclizine Hcl), 1 TAB PO TID PRN for DIZZY Ranitidine HCl (Ranitidine HCl), 150 MG PO BID Omeprazole (Prilosec), 40 MG PO QAM Fluticasone Propionate (Nasal) (Flonase Allergy Relief), 2 SPRAY NA DAILY - Take the following medications as scheduled the night before surgery: Simvastatin (Simvastatin), 20 MG PO HS Topiramate (Topamax), 50 MG PO HS Trazodone Hcl (Trazodone), 50 MG PO HS Trazodone Hcl (Trazodone), 100 MG PO HS Temazepam (Restoril), 30 MG PO HS PRN for Sleep Gabapentin (Gabapentin), 300 MG PO TID Hydrocodone/Acetaminophen 5MG/325MG ([place] 5MG/325MG), 2 TABLETS PO QID PRN for Pain Desmopressin Acetate (Desmopressin Acetate), 0.1 MG PO BID Dicyclomine Hcl (Bentyl), 20 MG PO QID PRN for BOWELS Lorazepam (Lorazepam), 0.5 MG PO UD PRN for Anxiety Meclizine Hcl (Meclizine Hcl), 1 TAB PO TID PRN for DIZZY Ranitidine HCl (Ranitidine HCl), 150 MG PO BID Montelukast Sodium (Singulair), 10 MG PO HS If you have any questions please call us at [phone] or [phone] or [phone]
[2016-11-24] VITALS (8 sets, daily range): BP systolic 98–119; BP diastolic 61–78; PULSE 54–84; TEMP 36.4–36.9; O2SAT 91–97; Ht 149.9 cm; Wt 93.9 kg
[~2016-11-24] VITALS: Ht 149.9 cm; Wt 93.9 kg
[~2016-11-24 07:52] MED LIST changes: +CLINDAMYCIN 600 MG/54 ML D5W IV SCH; +CLINDAMYCIN PHOS 150 MG/ML 2 ML VIAL IV SCH; +DICY20TA35 PO; -DSY/150 PO; +DULO60CA44 PO; +ERGO500037 PO; +FLUT0.15; +HYDR-5688 PO; +LACTATED RINGER'S 1000ML 1,000 ML IV SCH; -MAGN400T6 PO; +MECL1TAB42 PO; +METH1TAB81 PO; -OMEP20CA9 PO; +OMEP40CA41 PO; +PREGABALIN 75 MG CAP PO SCH; -RBX500 PO; -RIBOCAP PO; +TRAZ100T29 PO; +TRAZ50TA35 PO
[2016-11-24] MEDS ORDERED: FENTANYL CITRATE INJ 50 MCG/1 ML 2 ML VIAL ONE (08:20)
[2016-11-24] MEDS ORDERED: MIDAZOLAM HCL 1 MG/ML 2ML VIAL ONE (08:20)
[2016-11-24] MEDS ORDERED: GABA-113 PO (08:32)
[2016-11-24] MEDS ORDERED: Gabapentin (08:32)
--- NOTE | 2016-11-24 08:58 | History & Physical Bridge Note ---
H&P Re-Evaluation Bridge Note: I have examined the patient, reviewed the History & Physical and in the interval since the performance of the History & Physical I have noted the following changes of clinical significance: cleared by Dr. Bhatia-hematology for procedure, PE resolved, no DVT, held xarelto, will restart lovenox once bleeding stopped per recs. L4-5 decompression/fusion planned as discuessed in office now that cleared by hematology. No changes noted
[2016-11-24] MEDS ORDERED: ATROPINE SULFATE 0.1 MG/ML 5ML SYR IV PRN (09:15)
[2016-11-24] MEDS ORDERED: ONDANSETRON INJ 2 MG/ML 2 ML VIAL IV PRN ×2 (09:15→11:00)
[2016-11-24] MEDS ORDERED: LABETALOL HCL IV 5 MG/ML 20ML IV PRN (09:15)
[2016-11-24] MEDS ORDERED: PROMETHAZINE HCL INJ 12.5 MG in SODIUM CHLORIDE 0.9% 50ML 50 ML IV PRN ×2 (09:15→11:00)
[2016-11-24] MEDS ORDERED: HYDROmorphone INJ 2 MG/ML SYR/VIAL IV PRN (09:15)
[2016-11-24] MEDS ORDERED: BUPIVACAINE/EPINEPHRINE 0.5% MPF 1:200,000 10 ML VIAL ONE (09:22)
[2016-11-24] MEDS ORDERED: THROMBIN FOR SOLN 20000 UNIT KIT ONE (09:22)
[2016-11-24] MEDS ORDERED: THROMBIN 5000 UNITS KIT ONE (09:22)
[2016-11-24] MEDS ORDERED: BACITRACIN 50000 UNIT VIAL ONE (09:22)
[2016-11-24] MEDS ORDERED: HEPARIN SOD (PORCINE) 1000 UNIT/ML 10 ML VIAL ONE (09:22)
[2016-11-24] MEDS ORDERED: HYDROmorphone INJ 2 MG/ML SYR/VIAL ONE (09:57)
[2016-11-24] MEDS ORDERED: GLYCOPYRROLATE INJ 0.2 MG/ML VIAL ONE ×2 (10:01→10:26)
[2016-11-24] MEDS ORDERED: PROPOFOL IV EMULSION 10 MG/ML 20 ML VIAL IV ONE (10:01)
[2016-11-24] MEDS ORDERED: ROCURONIUM BROMIDE 10 MG/ML 5 ML VIAL ONE (10:01)
[2016-11-24] MEDS ORDERED: DEXAMETHASONE SOD INJ 4 MG/ML VIAL ONE (10:01)
[2016-11-24] MEDS ORDERED: NEOSTIGMINE METHYLSULFATE 5 MG/5 ML SYR ONE (10:01)
[2016-11-24] MEDS ORDERED: ONDANSETRON INJ 2 MG/ML 2 ML VIAL ONE (10:01)
[2016-11-24] MEDS ORDERED: FLOSEAL HEMOSTATIC MATRIX 10ML TOP ONE (10:57)
--- NOTE | 2016-11-24 10:59 | [facility] Operative Report ---
Operative Report Operative Date Nov 24, 2016. Pre-Operative Diagnosis Spondylolisthesis of L4-L5 and spinal stenosis L4-L5 Post-Operative Diagnosis Same as preoperative diagnosis Procedure(s) Performed L4-L5 Decompression and Transforaminal Lumbar Interbody Fusion; Infuse ; Autograft Surgeon Dr. Modesto Lees Business Systems Technician Surgeon(s) John Luke PA-C Estimated Blood Loss 200 mL Findings see dict Specimens No pathology specimens per surgeon Complication(s) None Description of Procedure After identification of the patient and the operative level they were brought to the OR where they underwent induction of general anesthesia. They were positioned prone on a Emilio spine table with all bony prominence well-padded. Care was taken to avoid pressure on the periorbital area. The lumbosacral area was sterilely prepped and draped in the usual fashion. Antibiotics were administered, a time-out was performed, level was confirmed, and skin incision was with localized lateral fluoroscopy and a spinal needle. The skin was infiltrated with half percent Marcaine with epinephrine. I then made skin incision from the spinous process of L4-5. The dorsal fascia was incised and posterior exposure was accomplished with dissection out to the tips of the transverse processes from L4-5 bilaterally. I then packed the gutters with thrombin-soaked sponges and used fluoroscopy to confirm the operative levels with markers at the operative levels. After identification of the appropriate level I placed Gelpi retractors and proceeded to perform midline decompression. Laminectomies of L4 were performed in the midline with takedown of the intervening ligamentum flavum. I then used an osteotome to remove the medial facets at L4-5. Facet hypertrophy and degenerative changes were noted at the operative levels. I then completed decompression with Kerrison rongeurs and palpated the nerve roots were adequately decompressed at the operative levels from L4-5 bilaterally. I palpated all nerve roots were decompressed adequately. I then obtained hemostasis of epidural bleeding with bipolar cautery and Surgiflo. I then proceeded to place pedicle screws bilaterally at L4-5 with bony anatomy confirmed to be intact with the ball-tipped feeler. I confirmed screw length, trajectory, and position with fluoroscopy. Bone graft consisted of morselized local bone from laminectomy bone as well as bone graft diversified crops ii farmworker saturated with stem cell concentrate. I obtained stem cell concentrate using a stem cell concentration system after aspiration of bone marrow from the right iliac crest via a separate stab incisions with a Jamshidi needle. I then applied this to bone graft diversified crops ii farmworker. I then lowered the Abdi frame to restore lordosis. I applied rods and end caps bilaterally with final tightening of all caps. I irrigated with bacitracin solution. I then decorticated the transverse processes bilaterally at the operative levels from L4-5 as well as facet joints with a high-speed bur. I then packed the lateral gutters and facets with the bone graft mixture consisting of: infuse BMP and a collagen sponge, tricalcium phosphate logs, stem cell concentrate, morcellized local bone, and bone graft diversified crops ii farmworker. I then confirmed hemostasis and closed in a layered fashion over a CEDRICK drain. All sponge and needle counts were correct in the case. I attest to the content of the Intraoperative Record and any orders documented therein. Any exceptions are noted below.
[2016-11-24] MEDS ORDERED: SOD PHOSPHATE/SOD BIPHOSPHATE ENEMA 132 ML BTL PR PRN (11:00)
[2016-11-24] MEDS ORDERED: TEMAZEPAM 15 MG CAP PO PRN (11:00)
[2016-11-24] MEDS ORDERED: LORAZEPAM INJ 0.5 MG in SYRINGE 0 ML IV PRN (11:00)
[2016-11-24] MEDS ORDERED: METOCLOPRAMIDE HCL INJ 5 MG/ML 2 ML VIAL IV PRN (11:00)
[2016-11-24] MEDS ORDERED: NALOXONE HCL 0.4 MG/1 ML VIAL/CARP IV PRN (11:00)
[2016-11-24] MEDS ORDERED: BISACODYL 10 MG SUPP PR PRN (11:00)
[2016-11-24] MEDS ORDERED: SODIUM CHLORIDE 0.9% 1000ML 1,000 ML IV SCH (11:00)
[2016-11-24] MEDS ORDERED: DICYCLOMINE HCL 20 MG TAB PO PRN (11:00)
[2016-11-24] MEDS ORDERED: MAGNESIUM HYDROXIDE SUSP 30 ML UDC PO PRN (11:00)
[2016-11-24] MEDS ORDERED: HYDROmorphone HCL 0.5MG/ML 50 ML CASSETTE ONE (11:19)
[2016-11-24] MEDS ORDERED: ALBUTEROL HFA INHALER 8.5 GM INH ONE (11:27)
--- NOTE | 2016-11-24 11:28 | DIAGNOSTIC IMAGING REPORT ---
INTRAOPERATIVE RADIOGRAPHS CLINICAL HISTORY: L4-L5 spinal fusion. Fluoroscopy time: 11 seconds. FINDINGS: 2 spot fluoroscopic views of the lumbar spine are presented. There are postoperative changes from laminectomy and posterior fusion at L4-L5. Interpedicular screws are present at both levels. The orthopedic hardware appears intact. IMPRESSION: Intraoperative images from L4-L5 spinal fusion as above. Electronically signed by: Js Bennett M.D. 11/24/2016 11:27 AM Dictated Date/Time: 11/24/2016 11:26 AM
[2016-11-24] MEDS ORDERED: HYDROmorphone INJ 1 MG/ML SYR ONE (11:32)
--- NOTE | 2016-11-24 12:59 | Anesthesiology Progress Note ---
Anesthesia Post Op Note Date & Time Nov 24, 2016 at 12:59 Vital Signs Pain Intensity: 3 Vital Signs Past 12 Hours Date Time Temp Pulse Resp B/P (MAP) Pulse Ox O2 Delivery O2 Flow Rate FiO2 11/24/16 12:15 80 18 108/64 98 Nasal Cannula 4 11/24/16 12:00 36.6 80 18 127/73 98 Nasal Cannula 4 11/24/16 11:50 83 16 123/76 98 Mask 10 11/24/16 11:40 86 16 119/70 98 Mask 10 11/24/16 11:30 81 15 107/71 100 Mask 10 11/24/16 11:20 36.4 98 16 155/95 98 Mask 10 11/24/16 08:48 36.8 74 20 119/63 96 Room Air Notes Mental Status: alert / awake / arousable, participated in evaluation Pt Amnestic to Procedure: Yes Nausea / Vomiting: adequately controlled Pain: adequately controlled Airway Patency, RR, SpO2: stable & adequate BP & HR: stable & adequate Hydration State: stable & adequate Anesthetic Complications: no major complications apparent
[2016-11-24 13:38] LABS: HEMATOCRIT 37.5 % (37-47); MEAN CELL VOLUME 91.2 fL (80-100); MEAN CORPUSCULAR HEMOGLOBIN 28.7 pg (25-34); MEAN CORPUSCULAR HGB CONC 31.5 g/dl (32-36); MEAN PLATELET VOLUME 9.3 fL (7.4-10.4); PLATELET COUNT 264 K/uL (130-400); RED BLOOD COUNT 4.11 M/uL (4.2-5.4); WHITE BLOOD COUNT 7.69 K/uL (4.8-10.8)
[2016-11-24] MEDS: SODIUM CHLORIDE 0.9% 1000ML 1,000 ML IV SCH (13:43)
[2016-11-24] MEDS: GABAPENTIN 300 MG CAP PO SCH ×2 (13:44→20:33)
[2016-11-24 13:47] LABS: PROTHROMBIN TIME (PATIENT) 10.4 SECONDS (9.0-12.0)
[2016-11-24] MEDS ORDERED: PNEUMOCOCCAL POLYSACCHARIDES 25 MCG/0.5 ML VIAL/SYR IM. ONE (14:00)
[2016-11-24] MEDS ORDERED: PNEUMOCOCCAL ADMINISTRATION CHARGE ONE (14:00)
[2016-11-24] MEDS: HYDROmorphone HCL 0.5MG/ML 50 ML CASSETTE IV PRN ×2 (14:57→19:14)
[2016-11-24] MEDS: CLINDAMYCIN IV 600 MG in DEXTROSE 5% 50ML 50 ML IV SCH (18:20)
[2016-11-24] MEDS: LORAZEPAM 0.5 MG TAB PO PRN (18:51)
[2016-11-24] MEDS: TRAZODONE HCL 50 MG TAB PO SCH (20:32)
[2016-11-24] MEDS: TOPIRAMATE 25 MG TAB PO SCH (20:32)
[2016-11-24] MEDS: RANITIDINE HCL 150 MG TAB PO SCH (20:33)
[2016-11-24] MEDS: SIMVASTATIN 20 MG TAB PO SCH (20:33)
[2016-11-24] MEDS: DESMOPRESSIN ACETATE 0.1 MG TAB PO SCH (20:33)
[2016-11-24] MEDS: DOCUSATE SODIUM/SENNA 50/8.6MG TAB PO SCH (20:33)
[2016-11-24] MEDS: MONTELUKAST SOD 10 MG TAB PO SCH (20:33)
[2016-11-24] MEDS: TRAZODONE HCL 100 MG TAB PO SCH (20:33)
--- NOTE | 2016-11-24 23:10 | Medical Consult ---
Consultation Date of Consultation: Nov 24, 2016. Attending Physician: Modesto Lees M.D. Reason for Consultation: Post- Op management History of Present Illness 46 yo Female with PMH of PE, GERD, [place], chronic back pain who failed outpatient conservative management s/p L4-L5 Decompression and Transforaminal Lumbar Interbody Fusion performed by Dr. Lees. [facility] Hospitalist group was consulted for post-op medical management. Pt said that she feels ok. she denies any chest pain, palpitation, dizziness and SOB. Past Medical/Surgical History Medical Problems: (1) Anemia Status: Acute (2) Dehydration Status: Acute (3) Diabetes insipidus Status: Acute (4) GERD (gastroesophageal reflux disease) Status: Acute (5) Left lower quadrant abdominal pain of unknown etiology Status: Acute (6) Pulmonary emboli Status: Acute (7) Syncope Status: Acute Family History Diabetes mellitus Gallbladder disease Heart disease Kidney disease Kidney stones Social History Smoking Status: Former Smoker Marital Status: in relationship Housing Status: lives with significant other Occupation Status: employed Allergies Coded Allergies: Bupropion (Verified Allergy, Severe, SKIN BREAKDOWN, 11/01/16) Loracarbef (Verified Allergy, Intermediate, HIVES, 11/01/16) Naproxen (Verified Allergy, Intermediate, HIVES, 11/01/16) Penicillins (Verified Allergy, Intermediate, HIVES, 11/01/16) Sulfa Antibiotics (Verified Allergy, Intermediate, HIVES, 11/01/16) Torsemide (Verified Allergy, Intermediate, HIVES - PATIENT CAN TOLERATE LASIX, 11/01/16) Cephalosporins (Verified Allergy, Unknown, hives, 11/01/16) Hydrochlorothiazide (Verified Allergy, Unknown, UNKNOWN, 11/24/16) Current Inpatient Medications Current Inpatient Medications Medications (Trade) Dose Ordered Sig/Tyler Route Start Time Stop Time Status Last Admin Dose Admin Desmopressin Acetate (Desmopressin Acetate) 0.1 mg BID PO 11/24/16 21:00 12/24/16 20:59 Dicyclomine HCl (Bentyl Tab) 20 mg QID PRN PO 11/24/16 11:00 12/24/16 10:59 Duloxetine HCl (Cymbalta Cap) 20 mg QAM PO 11/25/16 09:00 12/25/16 08:59 Duloxetine HCl (Cymbalta Cap) 60 mg QAM PO 11/25/16 09:00 12/25/16 08:59 Gabapentin (Neurontin Cap) 300 mg TID PO 11/24/16 14:00 12/24/16 13:59 11/24/16 13:44 300 MG Levothyroxine Sodium (Synthroid Tab) 25 mcg DAILYBB PO 11/25/16 06:00 12/25/16 05:59 Montelukast Sodium (Singulair Tab) 10 mg HS PO 11/24/16 21:00 12/24/16 20:59 Ranitidine HCl (zANTac TAB) 150 mg BID PO 11/24/16 21:00 12/24/16 20:59 Simvastatin (Zocor Tab) 20 mg HS PO 11/24/16 21:00 12/24/16 20:59 Temazepam (Restoril Cap) 30 mg HS PRN PO 11/24/16 11:00 12/24/16 10:59 Topiramate (Topamax Tab) 50 mg HS PO 11/24/16 21:00 12/24/16 20:59 Trazodone HCl (Desyrel Tab) 50 mg HS PO 11/24/16 21:00 12/24/16 20:59 Trazodone HCl (Desyrel Tab) 100 mg HS PO 11/24/16 21:00 12/24/16 20:59 Pantoprazole Sodium (Protonix Tab) 40 mg QAM PO 11/25/16 09:00 12/25/16 08:59 Clindamycin Phosphate 600 mg/ Dextrose 54 ml @ 100 mls/hr Q8H IV 11/24/16 18:00 11/25/16 02:33 11/24/16 18:20 100 MLS/HR Heparin Sodium (Porcine) (Heparin Sq 5000 Unit/0.5ml) 5,000 unit Q12H SQ 11/25/16 09:00 12/25/16 08:59 Promethazine HCl 12.5 mg/Sodium Chloride 50.5 ml @ 202 mls/hr Q6H PRN IV 11/24/16 11:00 12/24/16 10:59 Ondansetron HCl (Zofran Inj) 4 mg Q6H PRN IV 11/24/16 11:00 12/24/16 10:59 Metoclopramide HCl (Reglan Inj) 10 mg Q6H PRN IV 11/24/16 11:00 12/24/16 10:59 Lorazepam (Ativan Tab) 0.5 mg Q8H PRN PO 11/24/16 11:00 12/24/16 10:59 11/24/16 18:51 0.5 MG Lorazepam 0.5 mg/ Syringe 0.25 ml @ 1 mls/min Q8H PRN IV 11/24/16 11:00 12/24/16 10:59 Sodium Chloride 1,000 ml @ 75 mls/hr [id number] IV 11/24/16 11:00 12/24/16 10:59 11/24/16 13:43 75 MLS/HR Polyethylene (Miralax Powder Packet) 17 gm Q6 PO 11/26/16 06:00 12/26/16 05:59 Bisacodyl (Dulcolax Supp) 10 mg DAILY PRN [place] 11/24/16 11:00 12/24/16 10:59 Magnesium Hydroxide (Milk Of Magnesia Susp) 30 ml DAILY PRN PO 11/24/16 11:00 12/24/16 10:59 Hydromorphone HCl (Dilaudid Inj) 0.5 mg Q3H PRN IV 11/25/16 06:00 12/09/16 05:59 Oxycodone HCl (Roxicodone Immediate Rel Tab) 5-10mg prn moderate to sev... Q4H PRN PO 11/25/16 06:00 12/09/16 05:59 Naloxone HCl (Narcan Inj) 0.1 mg Q5M PRN IV 11/25/16 06:00 12/25/16 05:59 Senna/Docusate Sodium (Senokot S Tab) 2 tab HS PO 11/24/16 21:00 12/24/16 20:59 Sodium Biphosphate/ Sodium Phosphate (Fleet Enema) 132 ml ONE PRN [place] 11/24/16 11:00 12/24/16 10:59 Miscellaneous Information (Discontinue VC++ DEVELOPER) 1 ea TODAY@0600 ONCE N/A 11/25/16 06:00 11/25/16 06:01 Naloxone HCl (Narcan Inj) 0.1 mg Q5M PRN IV 11/24/16 11:00 11/25/16 06:00 Hydromorphone HCl (Dilaudid Doctor Of Audiology) 25 mg PRN PRN IV 11/24/16 11:00 11/25/16 06:00 11/24/16 19:14 25 MG Sodium Chloride 1,000 ml @ 15 mls/hr Q24H IV 11/24/16 11:00 11/25/16 06:00 Hydromorphone HCl (Dilaudid Inj) 1 mg Q3H PRN IV 11/25/16 06:00 12/09/16 05:59 Review of Systems Constitutional: No fever, No chills Eyes: No worsening of vision, No redness ENT: No nasal symptoms, No sore throat Respiratory: No cough, No sputum, No wheezing, No shortness of breath Cardiovascular: No chest pain, No claudication, No palpitations Abdomen: No pain, No vomiting Musculoskeletal: + problem reported (back pain), No calf pain Genitourinary - Female: No dysuria, No urinary frequency Neurologic: No memory loss, No weakness Psychiatric: No substance abuse Hematologic / Lymphatic: No night sweats Integumentary: No rash, No itch Physical Exam Date Time Temp Pulse Resp B/P (MAP) Pulse Ox O2 Delivery O2 Flow Rate FiO2 11/24/16 19:51 36.7 70 16 109/68 (82) 97 Room Air 11/24/16 15:55 95 Room Air 11/24/16 15:24 36.4 56 16 105/63 (77) 97 Nasal Cannula 3.0 11/24/16 15:22 Nasal Cannula 4.0 11/24/16 13:46 36.8 83 16 98/61 (73) 11/24/16 13:13 84 16 118/78 (91) 11/24/16 13:00 98 Nasal Cannula 4.0 11/24/16 12:30 97 Nasal Cannula 4.0 11/24/16 12:30 36.5 72 16 114/71 (85) 97 Nasal Cannula 4.0 11/24/16 12:15 80 18 108/64 98 Nasal Cannula 4 11/24/16 12:00 36.6 80 18 127/73 98 Nasal Cannula 4 11/24/16 11:50 83 16 123/76 98 Mask 10 11/24/16 11:40 86 16 119/70 98 Mask 10 11/24/16 11:30 81 15 107/71 100 Mask 10 11/24/16 11:20 36.4 98 16 155/95 98 Mask 10 11/24/16 08:48 36.8 74 20 119/63 96 Room Air General Appearance: WD/WN, no apparent distress Head: normocephalic, atraumatic Eyes: PERRL, EOMI ENT: hearing grossly normal Neck: supple, no JVD Respiratory/Chest: lungs clear, no respiratory distress, no accessory muscle use Cardiovascular: regular rate, rhythm, no JVD Abdomen/GI: normal bowel sounds, non tender Back: + pertinent finding (s/p L4-L5 Decompression, dressing in place with drainage) Extremities/Musculoskelatal: no calf tenderness Neurologic/Psych: alert, oriented x 3 Skin: warm/dry, no rash Laboratory Results Last 24 Hours Test 11/24/16 08:24 11/24/16 11:24 11/24/16 13:20 11/24/16 17:09 Bedside Glucose 98 mg/dl 132 mg/dl 122 mg/dl White Blood Count 7.69 K/uL Red Blood Count 4.11 M/uL Hemoglobin 11.8 g/dL Hematocrit 37.5 % Mean Corpuscular Volume 91.2 fL Mean Corpuscular Hemoglobin 28.7 pg Mean Corpuscular Hemoglobin Concent 31.5 g/dl RDW Standard Deviation 48.4 fL RDW Coefficient of Variation 14.4 % Platelet Count 264 K/uL Mean Platelet Volume 9.3 fL Prothrombin Time 10.4 SECONDS Prothromb Time International Ratio 1.0 Activated Partial Thromboplast Time 25.9 SECONDS Partial Thromboplastin Ratio 1.0 Assessment & Plan S/P L4-L4 DECOMPRESSION / FUSION - POD#0 - continue pain control - Incentive spirometry - PT/OT -Hbg stable Hx PE -Anticoagulant has been on hold -Will resume anticoagulant once bleeding control HYPOTHYROIDISM - Continue levothyroxine DVT PROPHYLAXIS - deferred to ortho CODE STATUS FULL CODE
[2016-11-25] VITALS (8 sets, daily range): BP systolic 84–145; BP diastolic 50–88; PULSE 60–103; TEMP 36.6–37.1; O2SAT 94–97
[2016-11-25] MEDS: SODIUM CHLORIDE 0.9% 1000ML 1,000 ML IV SCH (00:18)
[2016-11-25] MEDS: CLINDAMYCIN IV 600 MG in DEXTROSE 5% 50ML 50 ML IV SCH (01:42)
[2016-11-25] MEDS: LORAZEPAM 0.5 MG TAB PO PRN (03:50)
[2016-11-25] MEDS ORDERED: HYDROmorphone INJ 1 MG/ML SYR IV PRN (06:00)
[2016-11-25] MEDS ORDERED: NALOXONE HCL 0.4 MG/1 ML VIAL/CARP IV PRN (06:00)
[2016-11-25] MEDS ORDERED: DC PCA ONE (06:00)
[2016-11-25 06:14] LABS: BASO % 0.2 %; BASO ABS # 0.02 K/uL (0-0.2); COMPLETE YES; EOS % 0.6 %; HEMATOCRIT 32.1 % (37-47); IG% 0.2 %; LYMPH % 20.6 %; LYMPH ABS # 1.82 K/uL (1.2-3.4); MEAN CORPUSCULAR HEMOGLOBIN 28.4 pg (25-34); MEAN CORPUSCULAR HGB CONC 30.8 g/dl (32-36); MEAN PLATELET VOLUME 9.9 fL (7.4-10.4); MONO % 13.6 %; NEUT % 64.8 %; PLATELET COUNT 262 K/uL (130-400); RED BLOOD COUNT 3.49 M/uL (4.2-5.4); WHITE BLOOD COUNT 8.84 K/uL (4.8-10.8)
[2016-11-25] MEDS: LEVOTHYROXINE 25 MCG TAB PO SCH (06:15)
[2016-11-25 06:48] LABS: BUN/CREATININE RATIO 13.3 (10-20); CALCIUM 8.3 mg/dl (8.5-10.1); CREATININE 0.73 mg/dl (0.60-1.20); POTASSIUM 3.5 mmol/L (3.5-5.1)
[2016-11-25] MEDS: OXYCODONE HCL IR 5 MG TAB (IMMEDIATE RELEASE) PO PRN ×2 (06:48→21:22)
[2016-11-25] MEDS ORDERED: NURSING DECISION MEDICATION ORDER SCH (07:15)
[2016-11-25] MEDS: DESMOPRESSIN ACETATE 0.1 MG TAB PO SCH ×2 (08:16→21:18)
[2016-11-25] MEDS: RANITIDINE HCL 150 MG TAB PO SCH ×2 (08:16→21:18)
[2016-11-25] MEDS: DULOXETINE HCL 20 MG CAP PO SCH (08:18)
[2016-11-25] MEDS: GABAPENTIN 300 MG CAP PO SCH ×3 (08:18→21:18)
[2016-11-25] MEDS: PANTOprazole SOD 40 MG TAB PO SCH (08:19)
[2016-11-25] MEDS: DULOXETINE HCL 60 MG CAP PO SCH (08:19)
--- NOTE | 2016-11-25 09:57 | Anesthesiology Progress Note ---
Anesthesia Post Op Note Date & Time Nov 25, 2016 at 09:56 Vital Signs Pain Intensity: 8.0 Vital Signs Past 12 Hours Date Time Temp Pulse Resp B/P (MAP) Pulse Ox O2 Delivery O2 Flow Rate FiO2 11/25/16 08:45 96 Room Air 11/25/16 07:48 36.8 60 12 90/55 (67) 95 Room Air 11/25/16 07:30 Room Air 11/25/16 03:50 36.6 60 16 95/56 (69) 94 Room Air 11/24/16 23:25 36.9 54 16 106/66 (79) 91 BiPAP Notes Mental Status: alert / awake / arousable, participated in evaluation Pt Amnestic to Procedure: Yes Nausea / Vomiting: adequately controlled Pain: improving with treatment Airway Patency, RR, SpO2: stable & adequate BP & HR: stable & adequate Hydration State: stable & adequate Anesthetic Complications: no major complications apparent
[2016-11-25] MEDS ORDERED: NURSING VERBAL MED ORDER ONE (10:15)
[2016-11-25] MEDS: HEPARIN SOD 5000 UNIT/0.5 ML CARP SQ SCH ×2 (10:43→21:20)
[2016-11-25] MEDS ORDERED: KETOROLAC TROMETHAMINE 30 MG/ML VIAL IV. ONE (10:45)
--- NOTE | 2016-11-25 12:04 | Orthopedic Progress Note ---
Orthopedic Progress Note Date of Service Nov 25, 2016. Subjective Post OP Day: 1 Reports: feeling well, pain controlled w PO medications, Denies: complaints, chest pain, SOB, nausea / vomiting, light headedness, calf pain, using POLL CLERK Additional Notes: toradol helped LBP Objective calves soft nontender, N/V intact, dressing C/D/I, A&O x3, hemovac drainage Date Time Temp Pulse Resp B/P (MAP) Pulse Ox O2 Delivery O2 Flow Rate FiO2 11/25/16 11:27 37.1 94/60 (71) 11/25/16 11:18 36.8 60 14 88/50 (63) 96 Room Air 11/25/16 08:45 96 Room Air 11/25/16 07:48 36.8 60 12 90/55 (67) 95 Room Air 11/25/16 07:30 Room Air 11/25/16 03:50 36.6 60 16 95/56 (69) 94 Room Air 11/24/16 23:25 36.9 54 16 106/66 (79) 91 BiPAP 11/24/16 20:20 Room Air 11/24/16 19:51 36.7 70 16 109/68 (82) 97 Room Air 11/24/16 15:55 95 Room Air 11/24/16 15:24 36.4 56 16 105/63 (77) 97 Nasal Cannula 3.0 11/24/16 15:22 Nasal Cannula 4.0 11/24/16 13:46 36.8 83 16 98/61 (73) 11/24/16 13:13 84 16 118/78 (91) 11/24/16 13:00 98 Nasal Cannula 4.0 11/24/16 12:30 97 Nasal Cannula 4.0 11/24/16 12:30 36.5 72 16 114/71 (85) 97 Nasal Cannula 4.0 11/24/16 12:15 80 18 108/64 98 Nasal Cannula 4 Laboratory Results 24 Hours: Test 11/24/16 13:20 11/25/16 05:11 Hematocrit 37.5 % 32.1 % Hemoglobin 11.8 g/dL 9.9 g/dL Prothromb Time International Ratio 1.0 Prothrombin Time 10.4 SECONDS White Blood Count 8.84 K/uL Red Blood Count 3.49 M/uL Mean Corpuscular Volume 92.0 fL Mean Corpuscular Hemoglobin 28.4 pg Mean Corpuscular Hemoglobin Concent 30.8 g/dl Platelet Count 262 K/uL Mean Platelet Volume 9.9 fL Neutrophils (%) (Auto) 64.8 % Lymphocytes (%) (Auto) 20.6 % Monocytes (%) (Auto) 13.6 % Eosinophils (%) (Auto) 0.6 % Basophils (%) (Auto) 0.2 % Neutrophils # (Auto) 5.73 K/uL Lymphocytes # (Auto) 1.82 K/uL Monocytes # (Auto) 1.20 K/uL Eosinophils # (Auto) 0.05 K/uL Basophils # (Auto) 0.02 K/uL Assessment & Plan Assessment: await PT, pain improved after toradol, ambulation encouraged. on heparin SC Plan: PT, SCDs, heparin SC, d/c tuesday if mobile
[2016-11-25] MEDS ORDERED: RXC5 PO (13:26)
[2016-11-25] MEDS ORDERED: ENOX40IN SQ (13:26)
--- NOTE | 2016-11-25 13:27 | Discharge Instructions ---
Discharge Instructions Date of Service Nov 25, 2016. Admission Reason for Admission: Lumbar Spinal Stenosis Discharge Discharge Diagnosis / Problem: same Discharge Goals Goal(s): Decrease discomfort Activity Recommendations Activity Limitations: per Instructions/Follow-up section . Instructions / Follow-Up Instructions / Follow-Up ACTIVITY RECOMMENDATIONS: SELF CARE INSTRUCTIONS AFTER THORACIC/LUMBAR FUSIONS 1. You may walk to your tolerance. It is good exercise for your legs and back. Expect some back and intermittent leg aches and pains. 2. You may perform "counter-top" level activities (make a sandwich, erlin with a project, etc.). 3. No bending or lifting of more than 10 pounds or back twisting of any nature (roll like a log when turning in bed). 4. You may ride in a car for 20-30 minutes at a time. No driving until after your first visit with your doctor. 5. Frequent changes of position and restricting sitting to 30 minutes at a time will help limit the amount of back spasms and stiffness you may experience. 6. You may discontinue the use of ambulatory aids (cane, crutches, etc.) once your strength and confidence allow. 7. You may machine ii trimmer the shower and let water strike your incision when you arrive home at least once daily. Do not take a tub bath, sit in a hot tub or go into a swimming pool until after your first recheck in the office. SPECIAL CARE INSTRUCTIONS: VERY IMPORTANT TO READ AND REVIEW 2. You may keep the wound open to air as much as possible to promote healing after post-op day number 5 unless told otherwise by your doctor. 3. If you think the wound looks like it is becoming infected (redness or worsening drainage) and/or you are experiencing fever, chill or worsening back pain and muscle spasms, contact the office so that we may evaluate you as soon as possible. B. Complications are uncommon, but please contact us if you have any signs or symptoms of: 1. wound infection (fever higher than 102.5 degrees F, redness, separation of wound, drainage, or increasing pain from the incision) 2. blood clots in legs (pain, swelling, redness and warmth in legs) 3. urinary tract infection (fever higher than 102.5 degrees F, burning upon urination or increased frequency of urination) 4. nerve problems (inability to walk on your toes or heels, numbness, loss of bowel or bladder control) 5. any other symptoms that concern you C. Please call the office at if you have any concerns or questions about your operation or recovery. D. No smoking! Smoking drastically decreases the chance of a solid fusion. MANAGING PAIN AFTER SPINAL SURGERY 1. Narcotic medication is intended for short-term use and will be provided for surgical pain. Surgical pain usually lasts for a period of 4-6 weeks. Narcotic medication includes Percocet, Vicodin, Darvocet, Tylenol #3 or Lortab. 2. Longer-term pain is more appropriately treated with non-narcotic medication such as Tylenol ES. 3. Muscle spasm is not appropriately treated with narcotics. Muscle relaxers such as Soma, Flexeril or Skelaxin can be used along with Tylenol ES. 4. Remember that we all live with some "aches and pains". This is not unusual or uncommon after an injury or as we get older. a. Back pain is expected and may include muscle spasms for 4 to 6 weeks after surgery. The pain should gradually improve. If the pain worsens for no apparent reason, please contact the office. b. Intermittent leg pain may also be experienced and should not be concerned about unless it worsens for no apparent reason. If so, please contact the office. 5. We will provide appropriate medication within the normal guidelines of their prescribed use. We will also be very cautious and aware of potential abuse and extended duration of patients' medication needs. a. Pain medications are for your comfort and to assist with sleep and rest so that the tissue can heal. They are not provided in order to return to normal activity and should not be used through the day. To do so or worsening pain at night can result from ongoing tissue damage and development of tolerance to the prescribed medicine. 6. Please allow 2-3 days to process refills. Prescriptions will not be mailed but must be picked up at the office. FOLLOW UP VISIT: Keep your scheduled follow-up appointment. Any questions, please call the office at . Current Hospital Diet Patient's current hospital diet: Diabetes Type 2 Diet Discharge Diet Recommended Diet: Regular Diet Procedures Procedures Performed: L4-L5 Decompression and Transforaminal Lumbar Interbody Fusion; Infuse ; Autograft Pending Studies Studies pending at discharge: no Medical Emergencies . Who to Call and When: Medical Emergencies: If at any time you feel your situation is an emergency, please call 911 immediately. . Non-Emergent Contact Non-Emergency issues call your: Surgeon . "Provider Documentation" section prepared by Modesto Lees. . VTE Core Measure Inpt VTE Proph given/why not?: Unfractionated heparin SQ, T.EAmalia Stockings, SCD 's [place] Drug Monitoring Program Search Results: patient reviewed within database, no issues identified ( checked by MEAGANc)
[2016-11-25] MEDS: HYDROmorphone INJ 0.5 MG/0.5 ML SYR IV PRN (14:43)
[2016-11-25] MEDS ORDERED: SODIUM CHLORIDE 0.9% 1000ML 500 ML IV SCH (15:30)
[2016-11-25] MEDS ORDERED: NURSING VERBAL MED ORDER SCH (15:30)
--- NOTE | 2016-11-25 20:47 | Progress Note ---
Medicine Progress Note Date & Time of Visit: Nov 25, 2016 at 20:42. Subjective Pt was seen and examined denies any chest pain, palpitation, dizziness and SOB Objective Last 8 Hrs Date Time Temp Pulse Resp B/P (MAP) Pulse Ox O2 Delivery O2 Flow Rate FiO2 11/25/16 16:54 37.0 145/88 (107) 11/25/16 15:50 37.0 60 16 101/67 (78) 97 Room Air Physical Exam: General- no acute distress Head- atraumatic Eyes- PERRL, EOMI ENT- oropharynx clear Neck- supple, no JVD Lungs- clear to auscultation Heart- regular rhythm; no murmur Abdomen- normal bowel sounds, soft Extremities- no calf tenderness Neuro- alert, oriented x 3; PERRL Skin- warm & dry Laboratory Results: Last 24 Hours Test 11/25/16 05:11 11/25/16 17:28 White Blood Count 8.84 K/uL Red Blood Count 3.49 M/uL Hemoglobin 9.9 g/dL Hematocrit 32.1 % Mean Corpuscular Volume 92.0 fL Mean Corpuscular Hemoglobin 28.4 pg Mean Corpuscular Hemoglobin Concent 30.8 g/dl Platelet Count 262 K/uL Mean Platelet Volume 9.9 fL Neutrophils (%) (Auto) 64.8 % Lymphocytes (%) (Auto) 20.6 % Monocytes (%) (Auto) 13.6 % Eosinophils (%) (Auto) 0.6 % Basophils (%) (Auto) 0.2 % Neutrophils # (Auto) 5.73 K/uL Lymphocytes # (Auto) 1.82 K/uL Monocytes # (Auto) 1.20 K/uL Eosinophils # (Auto) 0.05 K/uL Basophils # (Auto) 0.02 K/uL RDW Standard Deviation 48.9 fL RDW Coefficient of Variation 14.5 % Immature Granulocyte % (Auto) 0.2 % Immature Granulocyte # (Auto) 0.02 K/uL Sodium Level 142 mmol/L Potassium Level 3.5 mmol/L Chloride Level 107 mmol/L Carbon Dioxide Level 30 mmol/L Anion Gap 5.0 mmol/L Blood Urea Nitrogen 10 mg/dl Creatinine 0.73 mg/dl Est Creatinine Clear Calc Drug Dose 95.5 ml/min Estimated GFR () 113.7 Estimated GFR (Non- 98.1 BUN/Creatinine Ratio 13.3 Random Glucose 106 mg/dl Calcium Level 8.3 mg/dl 25-Hydroxy Vitamin D Total 34.5 ng/ml Bedside Glucose 96 mg/dl Assessment & Plan S/P L4-L4 DECOMPRESSION / FUSION - POD#1 - continue pain control - Incentive spirometry - PT/OT -Hbg 9.9 Hx PE -Anticoagulant has been on hold -Resume anticoagulant once bleeding control HYPOTHYROIDISM - Continue levothyroxine DVT PROPHYLAXIS - deferred to ortho CODE STATUS FULL CODE Current Inpatient Medications: Current Inpatient Medications Medications (Trade) Dose Ordered Sig/Tyler Route Start Time Stop Time Status Last Admin Dose Admin Desmopressin Acetate (Desmopressin Acetate) 0.1 mg BID PO 11/24/16 21:00 12/24/16 20:59 11/25/16 08:16 0.1 MG Dicyclomine HCl (Bentyl Tab) 20 mg QID PRN PO 11/24/16 11:00 12/24/16 10:59 Duloxetine HCl (Cymbalta Cap) 20 mg QAM PO 11/25/16 09:00 12/25/16 08:59 11/25/16 08:18 20 MG Duloxetine HCl (Cymbalta Cap) 60 mg QAM PO 11/25/16 09:00 12/25/16 08:59 11/25/16 08:19 60 MG Gabapentin (Neurontin Cap) 300 mg TID PO 11/24/16 14:00 12/24/16 13:59 11/25/16 13:25 300 MG Levothyroxine Sodium (Synthroid Tab) 25 mcg DAILYBB PO 11/25/16 06:00 12/25/16 05:59 11/25/16 06:15 25 MCG Montelukast Sodium (Singulair Tab) 10 mg HS PO 11/24/16 21:00 12/24/16 20:59 11/24/16 20:33 10 MG Ranitidine HCl (zANTac TAB) 150 mg BID PO 11/24/16 21:00 12/24/16 20:59 11/25/16 08:16 150 MG Simvastatin (Zocor Tab) 20 mg HS PO 11/24/16 21:00 12/24/16 20:59 11/24/16 20:33 20 MG Temazepam (Restoril Cap) 30 mg HS PRN PO 11/24/16 11:00 12/24/16 10:59 Topiramate (Topamax Tab) 50 mg HS PO 11/24/16 21:00 12/24/16 20:59 11/24/16 20:32 50 MG Trazodone HCl (Desyrel Tab) 50 mg HS PO 11/24/16 21:00 12/24/16 20:59 11/24/16 20:32 50 MG Trazodone HCl (Desyrel Tab) 100 mg HS PO 11/24/16 21:00 12/24/16 20:59 11/24/16 20:33 100 MG Pantoprazole Sodium (Protonix Tab) 40 mg QAM PO 11/25/16 09:00 12/25/16 08:59 11/25/16 08:19 40 MG Heparin Sodium (Porcine) (Heparin Sq 5000 Unit/0.5ml) 5,000 unit Q12H SQ 11/25/16 09:00 12/25/16 08:59 11/25/16 10:43 5,000 UNIT Promethazine HCl 12.5 mg/Sodium Chloride 50.5 ml @ 202 mls/hr Q6H PRN IV 11/24/16 11:00 12/24/16 10:59 Ondansetron HCl (Zofran Inj) 4 mg Q6H PRN IV 11/24/16 11:00 12/24/16 10:59 Metoclopramide HCl (Reglan Inj) 10 mg Q6H PRN IV 11/24/16 11:00 12/24/16 10:59 Lorazepam (Ativan Tab) 0.5 mg Q8H PRN PO 11/24/16 11:00 12/24/16 10:59 11/25/16 03:50 0.5 MG Lorazepam 0.5 mg/ Syringe 0.25 ml @ 1 mls/min Q8H PRN IV 11/24/16 11:00 12/24/16 10:59 Polyethylene (Miralax Powder Packet) 17 gm Q6 PO 11/26/16 06:00 12/26/16 05:59 Bisacodyl (Dulcolax Supp) 10 mg DAILY PRN [place] 11/24/16 11:00 12/24/16 10:59 Magnesium Hydroxide (Milk Of Magnesia Susp) 30 ml DAILY PRN PO 11/24/16 11:00 12/24/16 10:59 11/25/16 16:30 30 ML Hydromorphone HCl (Dilaudid Inj) 0.5 mg Q3H PRN IV 11/25/16 06:00 12/09/16 05:59 11/25/16 14:43 0.5 MG Oxycodone HCl (Roxicodone Immediate Rel Tab) 5-10mg prn moderate to sev... Q4H PRN PO 11/25/16 06:00 12/09/16 05:59 11/25/16 06:48 10 MG Naloxone HCl (Narcan Inj) 0.1 mg Q5M PRN IV 11/25/16 06:00 12/25/16 05:59 Senna/Docusate Sodium (Senokot S Tab) 2 tab HS PO 11/24/16 21:00 12/24/16 20:59 11/24/16 20:33 2 TAB Sodium Biphosphate/ Sodium Phosphate (Fleet Enema) 132 ml ONE PRN [place] 11/24/16 11:00 12/24/16 10:59 Hydromorphone HCl (Dilaudid Inj) 1 mg Q3H PRN IV 11/25/16 06:00 12/09/16 05:59
[2016-11-25] MEDS: MONTELUKAST SOD 10 MG TAB PO SCH (21:18)
[2016-11-25] MEDS: TOPIRAMATE 25 MG TAB PO SCH (21:18)
[2016-11-25] MEDS: SIMVASTATIN 20 MG TAB PO SCH (21:18)
[2016-11-25] MEDS: TRAZODONE HCL 100 MG TAB PO SCH (21:18)
[2016-11-25] MEDS: DOCUSATE SODIUM/SENNA 50/8.6MG TAB PO SCH (21:18)
[2016-11-25] MEDS: TRAZODONE HCL 50 MG TAB PO SCH (21:19)
[2016-11-26] MEDS: HYDROmorphone INJ 0.5 MG/0.5 ML SYR IV PRN (03:16)
[2016-11-26] MEDS: POLYETHYLENE (MIRALAX) 17 GM PACK PO SCH ×2 (05:40→13:03)
[2016-11-26] MEDS: LEVOTHYROXINE 25 MCG TAB PO SCH (05:40)
[2016-11-26] MEDS: OXYCODONE HCL IR 5 MG TAB (IMMEDIATE RELEASE) PO PRN (05:46)
[2016-11-26 06:08] LABS: HEMATOCRIT 32.2 % (37-47); MEAN CELL VOLUME 90.7 fL (80-100); MEAN CORPUSCULAR HEMOGLOBIN 28.2 pg (25-34); MEAN CORPUSCULAR HGB CONC 31.1 g/dl (32-36); MEAN PLATELET VOLUME 9.4 fL (7.4-10.4); PLATELET COUNT 226 K/uL (130-400); RED BLOOD COUNT 3.55 M/uL (4.2-5.4); WHITE BLOOD COUNT 6.74 K/uL (4.8-10.8)
[2016-11-26 07:53] VITALS: BP 102/68; PULSE 88; TEMP 36.9; O2SAT 95
[2016-11-26] MEDS: GABAPENTIN 300 MG CAP PO SCH ×2 (08:49→13:03)
[2016-11-26] MEDS: DULOXETINE HCL 20 MG CAP PO SCH (08:50)
[2016-11-26] MEDS: RANITIDINE HCL 150 MG TAB PO SCH (08:50)
[2016-11-26] MEDS: PANTOprazole SOD 40 MG TAB PO SCH (08:50)
[2016-11-26] MEDS: DULOXETINE HCL 60 MG CAP PO SCH (08:51)
--- NOTE | 2016-11-26 08:51 | Orthopedic Progress Note ---
Orthopedic Progress Note Date of Service Nov 26, 2016. Subjective Post OP Day: 2 Reports: feeling well, pain controlled w PO medications, Denies: complaints, chest pain, SOB, nausea / vomiting, light headedness, calf pain, using TELEVISION MAINTENANCE MAN Objective calves soft nontender, N/V intact, dressing C/D/I, A&O x3, hemovac drainage Date Time Temp Pulse Resp B/P (MAP) Pulse Ox O2 Delivery O2 Flow Rate FiO2 11/26/16 07:53 36.9 88 18 102/68 (79) 95 Room Air 11/26/16 03:14 CPAP 11/25/16 23:46 Room Air 11/25/16 23:12 37.0 103 16 120/76 (91) 97 Room Air 11/25/16 16:54 37.0 145/88 (107) 11/25/16 15:50 37.0 60 16 101/67 (78) 97 Room Air 11/25/16 15:30 Room Air 11/25/16 11:27 37.1 94/60 (71) 11/25/16 11:18 36.8 60 14 88/50 (63) 96 Room Air Laboratory Results 24 Hours: Test 11/26/16 05:42 Hematocrit 32.2 % Hemoglobin 10.0 g/dL Assessment & Plan Assessment: await PT, pain improved after toradol, ambulation encouraged. on heparin SC Plan: PT, SCDs, heparin SC, d/c if comf after PT
[2016-11-26] MEDS: DESMOPRESSIN ACETATE 0.1 MG TAB PO SCH (08:52)
--- NOTE | 2016-11-26 08:55 | Discharge Summary ---
Orthopedic Discharge Summary Admission Date/Reason Nov 24, 2016 at 11:54 Lumbar Spinal Stenosis. Discharge Date/Disposition Nov 26, 2016 Home Diagnosis Principal Diagnosis: same Procedure(s) Performed L4-5 PSF Medication Reconciliation New Medications: Enoxaparin (Lovenox) 40 Mg/0.4 Ml Inj 0.4 ML SQ DAILY for 10 Days, #10 SYR Oxycodone HCl (Oxycodone HCl) 5 Mg Tab 5-10 MG PO Q4H PRN for Moderate - severe pain, #90 TAB Continued Medications: Desmopressin Acetate (Desmopressin Acetate) 0.1 Mg Tab 0.1 MG PO BID Dicyclomine Hcl (Bentyl) 20 Mg Tab 20 MG PO QID PRN for BOWELS, TAB Duloxetine Hcl (Cymbalta) 20 Mg Cap 20 MG PO QAM, CAP TAKES 20 AND 60MG = 80 Duloxetine Hcl (Cymbalta) 60 Mg Cap 60 MG PO QAM, CAP TAKES 20 AND 60MG = 80 Ergocalciferol (Vitamin D 35194 Unit) 50,000 Unit Cap 41280 UNIT PO WK, CAP SATURDAYS Fluticasone Propionate (Nasal) (Flonase Allergy Relief) 50 Mcg/Act Spr 2 SPRAY NA DAILY Gabapentin (Neurontin) 300 Mg Cap 300 MG PO TID, CAP Levothyroxine Sodium (Levothyroxine Sodium) 25 Mcg Tab 25 MCG PO QAM, TAB Lorazepam (Lorazepam) 0.5 Mg Tab 0.5 MG PO UD PRN for Anxiety Meclizine Hcl (Meclizine Hcl) 25 Mg Tab 1 TAB PO TID PRN for DIZZY, TAB Metformin Hcl Er (Glucophage Er) 500 Mg Tab 500 MG PO QPM, TAB Montelukast Sodium (Singulair) 10 Mg Tab 10 MG PO HS, TAB Omeprazole (Prilosec) 40 Mg Cap 40 MG PO QAM, CAP Ranitidine HCl (Ranitidine HCl) 150 Mg Tab 150 MG PO BID Simvastatin (Simvastatin) 20 Mg Tab 20 MG PO HS Temazepam (Restoril) 30 Mg Cap 30 MG PO HS PRN for Sleep, CAP Topiramate (Topamax) 50 Mg Tab 50 MG PO HS, TAB Trazodone Hcl (Trazodone) 50 Mg Tab 50 MG PO HS, TAB Trazodone Hcl (Trazodone) 100 Mg Tab 100 MG PO HS, TAB [Gabapentin] () Discontinued Medications: Hydrocodone/Acetaminophen 5MG/325MG (Jasper 5MG/325MG) Tab 2 TABLETS PO QID PRN for Pain, TAB PRN PAIN Rivaroxaban (Xarelto) 20 Mg Tab 20 MG PO QAM, TAB WILL RECIEVE INSTRUCTIN FROM DR UNGER Admission Physical Exam As per Admitting History & Physical. Hospital Course The patient was admitted for elective lumbar fusion. They tolerated procedure well and were stable on the floor. They progressed with PT, had stable labs, HVC output decreased, pain was controlled, and bowel function returned. They were discharged in stable condition. Discharge Instructions Please refer to the electronic Patient Visit Report (Discharge Instructions) for additional information.
[2016-11-26] MEDS: HEPARIN SOD 5000 UNIT/0.5 ML CARP SQ SCH (08:58)
[2016-11-26] MEDS ORDERED: KETOROLAC TROMETHAMINE 30 MG/ML VIAL IV PRN (09:00)
[2016-11-26 09:10] VITALS: O2SAT 95
[2016-11-26 09:55] VITALS: BP 113/78; PULSE 102; O2SAT 99
[2016-11-26 14:13] VITALS: BP 113/78; PULSE 102; TEMP 36.9; O2SAT 99
== END 2016-11-26 16:15 | disposition home or self-care (01) | DRG 460 ==
LOC: C.ACU 07:52 → C.3E 11:54 → ENRESERV 12:00
PROVIDERS: ADMIT Orthopaedic Surgery Orthopaedic Surgery of the Spine; ATTEND Orthopaedic Surgery Orthopaedic Surgery of the Spine
PROC: 0SG00A1 (ICD-10-PCS; principal; 2016-11-24 09:30)
DX: M48.06 Spinal stenosis, lumbar region (principal); E23.2 Diabetes insipidus; M43.16 Spondylolisthesis, lumbar region; K21.9 Gastro-esophageal reflux disease without esophagitis; D64.9 Anemia, unspecified; E03.9 Hypothyroidism, unspecified; Z79.01 Long term (current) use of anticoagulants; Z79.84 Long term (current) use of oral hypoglycemic drugs; Z79.899 Other long term (current) drug therapy; Z86.711 Personal history of pulmonary embolism; Z87.891 Personal history of nicotine dependence

== ENCOUNTER → 2017-01-05 | Outpatient (CLI) | payer OTHER ==
[~2017-01-05] MED LIST changes: -CLINDAMYCIN 600 MG/54 ML D5W IV SCH; -CLINDAMYCIN PHOS 150 MG/ML 2 ML VIAL IV SCH; +GABA-113 PO; +Gabapentin; -HYDR-5688 PO; -LACTATED RINGER'S 1000ML 1,000 ML IV SCH; -METH1TAB81 PO; -NRN600 PO; +OPTIRAY 320 IV PRN; -PREGABALIN 75 MG CAP PO SCH; -RIVA1TAB4 PO; +RXC5 PO
--- NOTE | 2017-01-05 16:33 | DIAGNOSTIC IMAGING REPORT ---
CT ANGIOGRAM OF THE CHEST CLINICAL HISTORY: Atypical chest pain. COMPARISON STUDY: Chest CT dated 01/28/2016 and 03/26/2014. Chest x-ray dated 08/05/2016. TECHNIQUE: Following the IV administration of 85 cc of Optiray 320, CT angiogram of the chest was performed from the upper abdomen to the thoracic inlet utilizing the pulmonary embolus protocol. Images are reviewed in the axial, sagittal, and coronal planes. 3-D MIPS images are created and assessed. IV contrast was administered without complication. The examination is degraded by large body habitus, and by streak artifact from the patient's body wall abutting the CT gantry. A dose lowering technique was utilized adhering to the principles of ALARA. CT DOSE: 513.93 mGy.cm FINDINGS: Thyroid: Normal in size and attenuation. Thoracic aorta: The thoracic aorta is normal in caliber and demonstrates 4-vessel variant arch anatomy. No dissection is seen. Pulmonary vasculature: The pulmonary trunk is normal in caliber. There is no evidence of pulmonary embolus in the main, lobar, or segmental pulmonary pulmonary arteries. Heart: The heart is top normal in size and there is a small pericardial effusion. Lungs and pleural spaces: Evaluation of the lung parenchyma is modestly degraded by respiratory motion artifact. No airspace consolidation or pleural effusion is seen. The trachea and central airways are clear. Mediastinum: There is no mediastinal lymphadenopathy. Estrella: Clear. Axillae: There is no axillary lymphadenopathy. Upper abdomen: The liver appears enlarged and steatotic. Cholecystectomy clips are noted. There is a small hiatal hernia. Skeletal structures: No lytic or blastic bony lesions are seen. IMPRESSION: 1. There is no evidence of pulmonary embolus in the main, lobar, or segmental pulmonary arteries. 2. The lungs are clear. 3. Hepatic steatosis. 4. Small pericardial effusion. Electronically signed by: Js Bennett M.D. 01/05/2017 4:32 PM Dictated Date/Time: 01/05/2017 4:26 PM
--- NOTE | 2017-01-05 17:00 | DIAGNOSTIC IMAGING REPORT ---
ULTRASOUND BILATERAL LOWER EXTREMITY VENOUS CLINICAL HISTORY: History pulmonary embolus. COMPARISON STUDY: Bilateral lower extremity venous ultrasound dated 04/11/2016. TECHNIQUE: Real-time, grayscale, and color Doppler sonography of the deep veins of the right and left lower extremity was performed from the inguinal crease to the calf. Compression and augmentation were utilized. FINDINGS: There is no sonographic evidence of deep venous thrombosis identified in the right or left lower extremity. The common femoral, superficial femoral, and popliteal veins are patent and normally compressible bilaterally. The greater saphenous vein and the profunda femoris vein at the junction with the common femoral vein are clear in both legs. The visualized calf veins are patent bilaterally. A small left Rose's cyst measures 3.5 x 0.5 x 1.5 cm. IMPRESSION: There is no sonographic evidence of deep venous thrombosis identified in the right or left lower extremity. Electronically signed by: Js Bennett M.D. 01/05/2017 4:58 PM Dictated Date/Time: 01/05/2017 4:57 PM
== END | disposition home or self-care (01) ==
LOC: C.CTS 16:02
PROVIDERS: ATTEND Internal Medicine Hematology & Oncology
DX: Z86.711 Personal history of pulmonary embolism (principal); R79.89 Other specified abnormal findings of blood chemistry; K76.0 Fatty (change of) liver, not elsewhere classified; I31.3 Pericardial effusion (noninflammatory)

== ENCOUNTER 2017-02-28 12:43 | Emergency (ER) | payer OTHER ==
[~2017-02-28] VITALS: Ht 149.9 cm; Wt 95.1 kg
[~2017-02-28 12:43] MED LIST changes: -OPTIRAY 320 IV PRN
[2017-02-28 12:51] VITALS: TEMP 36; Ht 149.9 cm; Wt 95.1 kg
[2017-02-28 12:56] VITALS: O2SAT 98
[2017-02-28] MEDS ORDERED: MoRPHine SULFATE 10 MG/ML CARP/VIAL IV STA (13:08)
[2017-02-28] MEDS ORDERED: ONDANSETRON INJ 2 MG/ML 2 ML VIAL IV STA (13:08)
[2017-02-28] MEDS ORDERED: OPTIRAY 320 IV PRN (13:30)
[2017-02-28 13:35] LABS: BASO % 0.4 %; BASO ABS # 0.02 K/uL (0-0.2); COMPLETE YES; EOS % 2.3 %; HEMATOCRIT 34.3 % (37-47); IG% 0.2 %; LYMPH % 36.9 %; LYMPH ABS # 2.09 K/uL (1.2-3.4); MEAN CORPUSCULAR HEMOGLOBIN 27.6 pg (25-34); MEAN CORPUSCULAR HGB CONC 32.1 g/dl (32-36); MONO % 8.7 %; NEUT % 51.5 %; PLATELET COUNT 294 K/uL (130-400); RED BLOOD COUNT 3.99 M/uL (4.2-5.4); WHITE BLOOD COUNT 5.66 K/uL (4.8-10.8)
[2017-02-28 13:42] LABS: PROTHROMBIN TIME (PATIENT) 10.3 SECONDS (9.0-12.0)
[2017-02-28 13:52] LABS: ALT/SGPT 20 U/L (12-78); BLOOD UREA NITROGEN 10 mg/dl (7-18); BUN/CREATININE RATIO 13.1 (10-20); CALCIUM 8.4 mg/dl (8.5-10.1); CARBON DIOXIDE 22 mmol/L (21-32); CHLORIDE 111 mmol/L (98-107); CREATININE 0.73 mg/dl (0.60-1.20); GLUCOSE 113 mg/dl (70-99); POTASSIUM 3.4 mmol/L (3.5-5.1); SODIUM 142 mmol/L (136-145)
[2017-02-28 13:58] LABS: ALKALINE PHOSPHATASE 82 U/L (45-117); AST/SGOT 9 U/L (15-37); CKMB/CK RATIO 1.1 (0-3.0)
--- NOTE | 2017-02-28 14:29 | DIAGNOSTIC IMAGING REPORT ---
CHEST ONE VIEW PORTABLE CLINICAL HISTORY: Atypical chest pain COMPARISON STUDY: 08/05/2016 FINDINGS: The cardiac and mediastinal contours are normal. There is no evidence of focal pulmonary consolidation. There is no evidence of failure. No pleural effusions are visualized.[ IMPRESSION: No active disease in the chest. Electronically signed by: Oswaldo Saavedra M.D. 02/28/2017 1:50 PM Dictated Date/Time: 02/28/2017 1:50 PM
[2017-02-28] MEDS ORDERED: DiphenhydrAMINE HCL 50 MG/ML VIAL IV STA (14:55)
--- NOTE | 2017-02-28 14:59 | DIAGNOSTIC IMAGING REPORT ---
CT ANGIOGRAPHY OF THE CHEST, PULMONARY EMBOLUS PROTOCOL CLINICAL HISTORY: Chest pain. Chest tightness. Palpitations. History of pulmonary emboli. COMPARISON STUDY: Chest CT January 05, 2017 and chest radiograph performed earlier today. TECHNIQUE: Following IV administration of 84 mL of Optiray-320, helical axial images of the chest were obtained utilizing the pulmonary embolus protocol. Maximal intensity projections and sagittal and coronal reformats were viewed on an independent 3D workstation. IV contrast was administered without complication. A dose lowering technique was utilized adhering to the principles of ALARA. CT DOSE: 504.53 mGy.cm FINDINGS: No pulmonary emboli are identified. Mild cardiomegaly is noted. There is no pericardial effusion. No enlarged thoracic lymph nodes are present. A few calcified right upper breast nodules are unchanged. These are benign. There is no consolidation to suggest pneumonia. No pneumothorax or pleural effusion is present. Groundglass opacities with mosaic attenuation is noted. This likely reflects atelectasis. Air trapping could appear similar. Bony thorax is unremarkable. Gallbladder is surgically absent. IMPRESSION: 1. No pulmonary emboli identified. 2. Mild groundglass opacities with mosaic attenuation. This likely reflects atelectasis although air trapping could appear similar. No consolidation to suggest pneumonia. Electronically signed by: Terrence Ludwig M.D. 02/28/2017 2:57 PM Dictated Date/Time: 02/28/2017 2:50 PM
--- NOTE | 2017-02-28 15:43 | EMERGENCY ROOM VISIT NOTE ---
History First contact with patient: 12:54 Chief Complaint: PALPITATIONS Stated Complaint: CHEST TIGHTNESS, HX OF PE, SWEATING, PALPITATIONS Nursing Triage Summary: pt reports since tuesday she has had mid chest tightness and palpitations. pt reports hx of pe in 2015. pt reports shortness of breath when up and moving since tuesday. pt reports she is not on any blood thinners at this time - has surgery in november and was on lovenox for 1.5 months and then taken off. History of Present Illness The patient is a 46 year old female who presents to the Emergency Room with complaints of chest tightness which started Tuesday evening and has been getting worse since that time. She also states that the tightness is in the center of her chest. She admits to associated shortness of breath when she is up and moving around. She denies any pain radiating into her jaw or down her left arm. The patient states that she also feels palpitations which she currently states she feels in her chest. She also admits to some diaphoresis when she gets the palpitations. She does have a history of anxiety but has been recently taken off a lot of her medications. She currently does not feel anxious. The patient also states she has a history of PE last year and this feels similar. The patient states that in November of this year she had back surgery and they switched her over to Lovenox. She was then seen in December by her PCP and they stop the Lovenox. She saw Dr. Claire earlier this month and was told everything was fine. [facility] today about her symptoms and was instructed to come to the emergency room. The patient does admit to a history of smoking in the past but she quit one year ago. The patient denies any recent leg pain. She denies any history of DVT. The patient denies any hormone use or any recent surgery. Review of Systems 10 system review was performed and was negative unless stated otherwise history of present illness. Past Medical/Surgical History Medical Problems: (1) Asthma (2) Bronchitis (3) Fibromyalgia (4) Hyperlipidemia (5) Hypothyroidism (6) Irritable bowel syndrome Surgical Problems: (1) History of carpal tunnel surgery (2) History of delivery (3) History of cholecystectomy (4) History of hernia repair (5) History of tonsillectomy (6) History of uvulectomy (7) Status post breast reduction Family History Diabetes mellitus Gallbladder disease Heart disease Kidney disease Kidney stones Social History Smoking Status: Never Smoker Alcohol Use: occasionally Marital Status: in relationship Housing Status: lives with significant other Occupation Status: employed Current/Historical Medications Scheduled Desmopressin Acetate (Desmopressin Acetate), 0.1 MG PO BID Duloxetine Hcl (Cymbalta), 60 MG PO QAM Levothyroxine Sodium (Levothyroxine Sodium), 25 MCG PO QAM Metformin Hcl Er (Glucophage Er), 500 MG PO QPM Montelukast Sodium (Singulair), 10 MG PO HS Omeprazole (Prilosec), 40 MG PO BID Ranitidine HCl (Ranitidine HCl), 150 MG PO BID Simvastatin (Simvastatin), 20 MG PO HS Topiramate (Topamax), 50 MG PO HS Trazodone Hcl (Trazodone), 100 MG PO HS Physical Exam Vital Signs Date Time Temp Pulse Resp B/P (MAP) Pulse Ox O2 Delivery O2 Flow Rate FiO2 02/28/17 14:54 98/53 02/28/17 14:52 75 18 95 Room Air 02/28/17 13:44 68 18 112/59 97 Room Air 02/28/17 13:00 66 02/28/17 12:56 98 Room Air 02/28/17 12:51 36.0 66 20 121/76 96 Room Air Physical Exam GENERAL: 46-year-old white female appears in no acute distress. MENTAL Status: Patient is alert and oriented 3. She does not appear anxious. Affect is appropriate. EYES: PERRLA. EOMs intact. NECK: Supple, no lymphadenopathy noted. No carotid bruits noted. LUNGS: Clear auscultation without wheezes rales or rhonchi. CARDIAC: Regular rate and rhythm without murmur. Pulses is full and equal throughout. ABDOMEN: Positive bowel sounds all 4 quadrants. Soft, nontender to palpation without organomegaly or masses. LOWER EXTREMITY is: No cyanosis or edema noted. Calves are nontender. No palpable cords. No erythema noted. Negative Homans bilaterally. Medical Decision & Procedures ER Provider Diagnostic Interpretation: CHEST ONE VIEW PORTABLE CLINICAL HISTORY: Atypical chest pain COMPARISON STUDY: 08/05/2016 FINDINGS: The cardiac and mediastinal contours are normal. There is no evidence of focal pulmonary consolidation. There is no evidence of failure. No pleural effusions are visualized.[ IMPRESSION: No active disease in the chest. Electronically signed by: Oswaldo Saavedra M.D. 02/28/2017 1:[address] ANGIOGRAPHY OF THE CHEST, PULMONARY EMBOLUS PROTOCOL CLINICAL HISTORY: Chest pain. Chest tightness. Palpitations. History of pulmonary emboli. COMPARISON STUDY: Chest CT January 05, 2017 and chest radiograph performed earlier today. TECHNIQUE: Following IV administration of 84 mL of Optiray-320, helical axial images of the chest were obtained utilizing the pulmonary embolus protocol. Maximal intensity projections and sagittal and coronal reformats were viewed on an independent 3D workstation. IV contrast was administered without complication. A dose lowering technique was utilized adhering to the principles of ALARA. CT DOSE: 504.53 mGy.cm FINDINGS: No pulmonary emboli are identified. Mild cardiomegaly is noted. There is no pericardial effusion. No enlarged thoracic lymph nodes are present. A few calcified right upper breast nodules are unchanged. These are benign. There is no consolidation to suggest pneumonia. No pneumothorax or pleural effusion is present. Groundglass opacities with mosaic attenuation is noted. This likely reflects atelectasis. Air trapping could appear similar. Bony thorax is unremarkable. Gallbladder is surgically absent. IMPRESSION: 1. No pulmonary emboli identified. 2. Mild groundglass opacities with mosaic attenuation. This likely reflects atelectasis although air trapping could appear similar. No consolidation to suggest pneumonia. Electronically signed by: Terrence Ludwig M.D. 02/28/2017 2:57 PM Laboratory Results 02/28/17 13:10 Red Blood Count 3.99, Mean Corpuscular Volume 86.0, Mean Corpuscular Hemoglobin 27.6, Mean Corpuscular Hemoglobin Concent 32.1, Mean Platelet Volume 10.0, Neutrophils (%) (Auto) 51.5, Lymphocytes (%) (Auto) 36.9, Monocytes (%) (Auto) 8.7, Eosinophils (%) (Auto) 2.3, Basophils (%) (Auto) 0.4, Neutrophils # (Auto) 2.92, Lymphocytes # (Auto) 2.09, Monocytes # (Auto) 0.49, Eosinophils # (Auto) 0.13, Basophils # (Auto) 0.02 02/28/17 13:10 Test 02/28/17 13:10 02/28/17 13:23 White Blood Count 5.66 K/uL (4.8-10.8) Red Blood Count 3.99 M/uL (4.2-5.4) Hemoglobin 11.0 g/dL (12.0-16.0) Hematocrit 34.3 % (37-47) Mean Corpuscular Volume 86.0 fL (80-100) Mean Corpuscular Hemoglobin 27.6 pg (25-34) Mean Corpuscular Hemoglobin Concent 32.1 g/dl (32-36) Platelet Count 294 K/uL (130-400) Mean Platelet Volume 10.0 fL (7.4-10.4) Neutrophils (%) (Auto) 51.5 % Lymphocytes (%) (Auto) 36.9 % Monocytes (%) (Auto) 8.7 % Eosinophils (%) (Auto) 2.3 % Basophils (%) (Auto) 0.4 % Neutrophils # (Auto) 2.92 K/uL (1.4-6.5) Lymphocytes # (Auto) 2.09 K/uL (1.2-3.4) Monocytes # (Auto) 0.49 K/uL (0.11-0.59) Eosinophils # (Auto) 0.13 K/uL (0-0.5) Basophils # (Auto) 0.02 K/uL (0-0.2) RDW Standard Deviation 46.8 fL (36.4-46.3) RDW Coefficient of Variation 15.1 % (11.5-14.5) Immature Granulocyte % (Auto) 0.2 % Immature Granulocyte # (Auto) 0.01 K/uL (0.00-0.02) Prothrombin Time 10.3 SECONDS (9.0-12.0) Prothromb Time International Ratio 1.0 (0.9-1.1) Activated Partial Thromboplast Time 26.6 SECONDS (21.0-31.0) Partial Thromboplastin Ratio 1.0 Anion Gap 9.0 mmol/L (3-11) Est Creatinine Clear Calc Drug Dose 96.2 ml/min Estimated GFR () 113.7 Estimated GFR (Non- 98.1 BUN/Creatinine Ratio 13.1 (10-20) Calcium Level 8.4 mg/dl (8.5-10.1) Total Bilirubin 0.3 mg/dl (0.2-1) Direct Bilirubin < 0.1 mg/dl (0-0.2) Aspartate Amino Transf (AST/SGOT) 9 U/L (15-37) Alanine Aminotransferase (ALT/SGPT) 20 U/L (12-78) Alkaline Phosphatase 82 U/L (45-117) Total Creatine Kinase 127 U/L (26-192) Creatine Kinase MB 1.4 ng/ml (0.5-3.6) Creatine Kinase MB Ratio 1.1 (0-3.0) Troponin I < 0.015 ng/ml (0-0.045) Pro-B-Type Natriuretic Peptide 220 pg/ml (0-450) Total Protein 6.6 gm/dl (6.4-8.2) Albumin 3.6 gm/dl (3.4-5.0) Lipase 158 U/L (73-393) Bedside D-Dimer 440 ng/mlFEU (0-450) Medications Administered Medications (Trade) Dose Ordered Sig/Tyler Route Start Time Stop Time Status Last Admin Dose Admin Morphine Sulfate (MoRPHine SULFATE INJ) 6 mg NOW STAT IV 02/28/17 13:08 02/28/17 13:16 DC 02/28/17 13:26 6 MG Ondansetron HCl (Zofran Inj) 4 mg NOW STAT IV 02/28/17 13:08 02/28/17 13:16 DC 02/28/17 13:25 4 MG Diphenhydramine HCl (Benadryl Inj) 50 mg NOW STAT IV 02/28/17 14:55 02/28/17 14:56 DC 02/28/17 15:01 50 MG ED Course The patient was evaluated. The patient's EMR medication list were reviewed. IV access was obtained. The patient was placed on continuous pulse ox and monitor. She was given Zofran 4 mg IV and morphine 6 mg IV push for pain. The patient was not given aspirin since she has an allergy to them naproxen. Due to the patient's history I will order the CT for PE. CBC and differential, renal profile, coags, pointing care d-dimer was ordered. CK-MB, LFTs and lipase levels, pointing care d-dimer, troponin and BNP were ordered. Labs are reviewed and were unremarkable except for a d-dimer of 440 which is the upper limits of normal. Chest x-ray was ordered and was unremarkable. This was interpreted by the radiologist as above. CT for PE was reviewed by the radiologist as above without any evidence of pulmonary embolus. Suggestion of some atelectasis noted. The patient was informed of the findings. When the patient got back from CAT scan she started feeling itchy in her head but did not have any hives, throat or chest tightness. She was given Benadryl 50 mg IV. The patient had resolution of her symptoms. The patient case was discussed with Dr. Castelan who agreed with treatment plan. I discussed with the patient that she needs to follow with her family doctor to obtain possible Holter monitoring or resume some of her anti-anxiety medications. The patient verbalized understanding and was discharged home in stable condition. Medical Decision Differential diagnosis include acute PE, pneumonia, A. fib, anxiety, pericarditis, [place] Drug Monitoring Program Search Results: patient reviewed within database Medication Reconcilliation Current Medication List: was personally reviewed by me Blood Pressure Screening Patient's blood pressure: Normal blood pressure Impression Primary Impression: Heart palpitations Additional Impression: Chest tightness Departure Information Dispostion Home / Self-Care Condition GOOD Referrals Jamia Carlton D.O. (PCP) Forms HOME CARE DOCUMENTATION FORM, IMPORTANT VISIT INFORMATION, WORK / SCHOOL INSTRUCTIONS Patient Instructions ED Palpitations, [facility] Additional Instructions Recommend limit caffeine products. Follow-up with your family doctor in 2-3 days for recheck and possible Holter monitoring or resuming anti-anxiety medications. If your symptoms worsen in the interim, return to ER. Problem Qualifiers
[2017-02-28 15:50] VITALS: BP 98/61; PULSE 70; O2SAT 95
== END 2017-02-28 15:50 | disposition home or self-care (01) ==
LOC: C.EDB 12:45 → C.EDA 15:50
DX: R07.89 Other chest pain (principal); R00.2 Palpitations; F41.9 Anxiety disorder, unspecified; Z86.711 Personal history of pulmonary embolism; E78.5 Hyperlipidemia, unspecified; M79.7 Fibromyalgia; K58.9 Irritable bowel syndrome, unspecified; J45.909 Unspecified asthma, uncomplicated; E03.9 Hypothyroidism, unspecified; Z90.49 Acquired absence of other specified parts of digestive tract; Z87.891 Personal history of nicotine dependence; Z79.01 Long term (current) use of anticoagulants; Z83.3 Family history of diabetes mellitus; Z84.1 Family history of disorders of kidney and ureter; Z79.899 Other long term (current) drug therapy

== ENCOUNTER 2017-05-17 21:45 | Emergency (ER) | payer OTHER ==
[~2017-05-17] VITALS: Ht 149.9 cm; Wt 90.2 kg
[~2017-05-17 21:45] MED LIST changes: -ATV5X PO; +DESM0.1T12 PO; -DESM0.1T8 PO; -DICY20TA35 PO; -DULO-24 PO; -ERGO500037 PO; -FLUT0.15; -GABA-113 PO; -Gabapentin; -MECL1TAB42 PO; -RXC5 PO; -TEMA30CA4 PO; -TRAZ50TA35 PO
[2017-05-17 21:56] VITALS: TEMP 36.7; Ht 149.9 cm; Wt 90.2 kg
[2017-05-17] MEDS ORDERED: SODIUM CHLORIDE 0.9% 1000ML 1,000 ML IV STA (22:13)
[2017-05-17] MEDS ORDERED: KETOROLAC TROMETHAMINE 30 MG/ML VIAL IV STA (22:13)
[2017-05-17] MEDS ORDERED: AZITHROMYCIN 250 MG TAB PO STA (22:13)
[2017-05-17] MEDS ORDERED: ALBUT/IPRATROP 3MG/0.5MG NEB 3 ML VIAL INH ONE (22:15)
--- NOTE | 2017-05-17 22:21 | EMERGENCY ROOM VISIT NOTE ---
History Report prepared by Dianaibmckay: Lizzeth Elkins Under the Supervision of: Dr. Mohsen Faria M.D. First contact with patient: 22:11 Chief Complaint: CONGESTION Stated Complaint: CHEST TIGHTNESS, COUGHING, HX BRONCHITIS History of Present Illness The patient is a 46 year old female who presents to the Emergency Room with complaints of worsening congestion for the past 1 week. She reports her symptoms first started around Siva time with congestion. She saw her PCP and was placed on Prednisone for wheezing and diagnosed with bronchitis. 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 She has also experienced a cough, the chills , chest pain and diarrhea. 800 mg of Ibuprofen, last taken at 1600 today, has provided minimal relief for her chest pain. This evening while she was at work, she states she "felt like it was hard to breathe" because the fireplace was in use. She tried using inhalers, but they provided no relief, so she came here to the ED. The patient admits to a history of PE in January 2016. She was on blood thinners up until December 2016, when she underwent back surgery. She denies any abdominal pain. She admits she is a former smoker and notes her Mother smokes in their home. 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 A total of ten systems were reviewed and were otherwise negative. Past Medical & Surgical Medical Problems: (1) Asthma (2) Bronchitis (3) Fibromyalgia (4) Hyperlipidemia (5) Hypothyroidism (6) Irritable bowel syndrome Surgical Problems: (1) History of carpal tunnel surgery (2) History of delivery (3) History of cholecystectomy (4) History of hernia repair (5) History of tonsillectomy (6) History of uvulectomy (7) Status post breast reduction Family History Diabetes mellitus Gallbladder disease Heart disease Kidney disease Kidney stones Social History Smoking Status: Former Smoker Alcohol Use: occasionally Marital Status: in relationship Housing Status: lives with significant other Occupation Status: employed Current/Historical Medications Scheduled Azithromycin (Zithromax), 250 MG PO DAILY Desmopressin Acetate (Desmopressin Acetate), 0.1 MG PO BID Duloxetine Hcl (Cymbalta), 60 MG PO QAM Levothyroxine Sodium (Levothyroxine Sodium), 25 MCG PO QAM Metformin Hcl Er (Glucophage Er), 500 MG PO QPM Montelukast Sodium (Singulair), 10 MG PO HS Omeprazole (Prilosec), 40 MG PO BID Prednisone (Prednisone), 3 TAB PO DAILY Ranitidine HCl (Ranitidine HCl), 150 MG PO BID Simvastatin (Simvastatin), 20 MG PO HS Topiramate (Topamax), 50 MG PO HS Trazodone Hcl (Trazodone), 100 MG PO HS Allergies Coded Allergies: Bupropion (Verified Allergy, Severe, SKIN BREAKDOWN, 05/17/17) Loracarbef (Verified Allergy, Intermediate, HIVES, 05/17/17) Naproxen (Verified Allergy, Intermediate, HIVES, 05/17/17) Penicillins (Verified Allergy, Intermediate, HIVES, 05/17/17) Sulfa Antibiotics (Verified Allergy, Intermediate, HIVES, 05/17/17) Torsemide (Verified Allergy, Intermediate, HIVES - PATIENT CAN TOLERATE LASIX, 05/17/17) Cephalosporins (Verified Allergy, Unknown, hives, 05/17/17) Hydrochlorothiazide (Verified Allergy, Unknown, UNKNOWN, 05/17/17) Uncoded Allergies: CONTRAST (Allergy, Unknown, itchiness, 02/28/17) generalized itchiness. no hives. Physical Exam Vital Signs Date Time Temp Pulse Resp B/P (MAP) Pulse Ox O2 Delivery O2 Flow Rate FiO2 05/18/17 00:49 99 20 120/59 95 05/18/17 00:03 79 16 121/66 100 Nebulizer 7.0 05/17/17 23:14 79 23 98 Room Air 05/17/17 23:02 67 05/17/17 23:01 68 20 100 Mask 7.0 Nebulizer 05/17/17 22:52 97 Room Air 05/17/17 22:50 97 Room Air 05/17/17 21:56 36.7 90 20 131/83 96 Room Air Physical Exam GENERAL: Awake, alert, well-appearing, in no distress HENT: Normocephalic, atraumatic. Oropharynx unremarkable. Dry mucous membranes. EYES: Normal conjunctiva. Sclera non-icteric. NECK: Supple. No nuchal rigidity. FROM. No JVD. RESPIRATORY: Scant scattered wheezes, lungs are otherwise clear. CARDIAC: Regular rate, normal rhythm. Extremities warm and well perfused. Pulses equal. ABDOMEN: Soft, non-distended. No tenderness to palpation. No rebound or guarding. No masses. RECTAL: Deferred. MUSCULOSKELETAL: Chest examination reveals no tenderness. The back is symmetrical on inspection without obvious abnormality. There is no CVA tenderness to palpation. No joint edema. LOWER EXTREMITIES: Calves are equal size bilaterally and non-tender. No edema. No discoloration. NEURO: Normal sensorium. No sensory or motor deficits noted. SKIN: No rash or jaundice noted. Medical Decision & Procedures ER Provider Diagnostic Interpretation: Radiology results as stated below per my review and radiologist interpretation: CHEST ONE VIEW PORTABLE HISTORY: 46 years-old Female CHEST PAIN acute atypical chest pain COMPARISON: Chest radiograph 02/28/2017, CTA of the chest 02/28/2017 TECHNIQUE: Portable AP view of the chest FINDINGS: Cardiomediastinal and hilar silhouettes are within normal limits. No pneumothorax, pleural effusion, focal airspace consolidation or overt pulmonary edema. Bones of the chest are grossly intact. IMPRESSION: No acute process. The above report was generated using voice recognition software. It may contain grammatical, syntax or spelling errors. Electronically signed by: Leo Shields M.D. 05/17/2017 10:41 PM Laboratory Results 05/17/17 22:45 Red Blood Count 4.02, Mean Corpuscular Volume 87.1, Mean Corpuscular Hemoglobin 28.4, Mean Corpuscular Hemoglobin Concent 32.6, Mean Platelet Volume 9.6, Neutrophils (%) (Auto) 53.2, Lymphocytes (%) (Auto) 34.5, Monocytes (%) (Auto) 7.9, Eosinophils (%) (Auto) 2.7, Basophils (%) (Auto) 0.5, Neutrophils # (Auto) 4.68, Lymphocytes # (Auto) 3.04, Monocytes # (Auto) 0.70, Eosinophils # (Auto) 0.24, Basophils # (Auto) 0.04 05/17/17 22:45 Test 05/17/17 22:15 05/17/17 22:45 Influenza Type A (RT-PCR) Neg for Influ A (NEG) Influenza Type A Antigen Neg for Influ A (NEG) Influenza Type B Antigen Neg for Influ B (NEG) Influenza Type B (RT-PCR) Neg for Influ B (NEG) White Blood Count 8.81 K/uL (4.8-10.8) Red Blood Count 4.02 M/uL (4.2-5.4) Hemoglobin 11.4 g/dL (12.0-16.0) Hematocrit 35.0 % (37-47) Mean Corpuscular Volume 87.1 fL (80-100) Mean Corpuscular Hemoglobin 28.4 pg (25-34) Mean Corpuscular Hemoglobin Concent 32.6 g/dl (32-36) Platelet Count 322 K/uL (130-400) Mean Platelet Volume 9.6 fL (7.4-10.4) Neutrophils (%) (Auto) 53.2 % Lymphocytes (%) (Auto) 34.5 % Monocytes (%) (Auto) 7.9 % Eosinophils (%) (Auto) 2.7 % Basophils (%) (Auto) 0.5 % Neutrophils # (Auto) 4.68 K/uL (1.4-6.5) Lymphocytes # (Auto) 3.04 K/uL (1.2-3.4) Monocytes # (Auto) 0.70 K/uL (0.11-0.59) Eosinophils # (Auto) 0.24 K/uL (0-0.5) Basophils # (Auto) 0.04 K/uL (0-0.2) RDW Standard Deviation 51.9 fL (36.4-46.3) RDW Coefficient of Variation 16.2 % (11.5-14.5) Immature Granulocyte % (Auto) 1.2 % Immature Granulocyte # (Auto) 0.11 K/uL (0.00-0.02) D-Dimer 290 ug/L FEU (0-500) Anion Gap 6.0 mmol/L (3-11) Est Creatinine Clear Calc Drug Dose 73.2 ml/min Estimated GFR () 84.8 Estimated GFR (Non- 73.2 BUN/Creatinine Ratio 13.8 (10-20) Calcium Level 8.4 mg/dl (8.5-10.1) Total Bilirubin 0.2 mg/dl (0.2-1) Direct Bilirubin < 0.1 mg/dl (0-0.2) Aspartate Amino Transf (AST/SGOT) 9 U/L (15-37) Alanine Aminotransferase (ALT/SGPT) 19 U/L (12-78) Alkaline Phosphatase 81 U/L (45-117) Troponin I < 0.015 ng/ml (0-0.045) Total Protein 6.8 gm/dl (6.4-8.2) Albumin 3.5 gm/dl (3.4-5.0) Lipase 230 U/L (73-393) Laboratory results reviewed by me Medications Administered Medications (Trade) Dose Ordered Sig/Tyler Route Start Time Stop Time Status Last Admin Dose Admin Albuterol/ Ipratropium (Duoneb) 12 ml ONE ONCE INH 05/17/17 22:15 05/17/17 22:23 DC 05/17/17 22:15 12 ML Prednisone (PredniSONE TAB) 60 mg NOW STAT PO 05/17/17 22:13 05/17/17 22:23 DC 05/17/17 22:59 60 MG Azithromycin (Zithromax Tab) 500 mg NOW STAT PO 05/17/17 22:13 05/17/17 22:23 DC 05/17/17 22:59 500 MG Ketorolac Tromethamine (Toradol Inj) 15 mg NOW STAT IV 05/17/17 22:13 05/17/17 22:23 DC 05/17/17 22:59 15 MG Sodium Chloride 1,000 ml @ 999 mls/hr Q1H1M STAT IV 05/17/17 22:13 05/17/17 23:13 DC 05/17/17 22:58 999 MLS/HR ECG Indication: chest pain Rate (beats per minute): 67 Rhythm: normal sinus Findings: no acute ischemic change, other (normal axis) ED Course 2212: The patient was evaluated in room A9. A complete history and physical exam was performed. 0035: I reevaluated the patient. She is feeling much better. I discussed her results and discharge instructions and she verbalized complete understanding and agreement. Medical Decision I reviewed the patient's past medical history, medications, and the nursing notes as described above. Differential Diagnoses: Bronchitis, COPD, pneumonia, PE, ACS, CHF, musculoskeletal strain, anxiety and viral illness. The patient is a 46 y/o woman with pmhx of prior PE no longer on AC who presents to the emergency department with cough,congestion, sob in the setting of being treated outpatient for bronchitis with prednisone by per pcp per HPI. On arrival the patient is in NAD, AFVSS. Scant scattered wheezed but otherwise clear. Labs unremarkable WBC, Trop, D-dimer wnl in the setting of constant sx. Flu negative. CXR negative for PNA. Patient feeling improved after IVF, nebs, steroids, and azithro. Of note, patient reports that she lives with her mother, who smokes in her house. Patient counseled on avoided 2nd hand smoke. Findings and plan for follow-up reviewed with patient. Patient agreeable and d/c'd per discharge instructions. Medication Reconcilliation Current Medication List: was personally reviewed by me Blood Pressure Screening Patient's blood pressure: Normal blood pressure Blood pressure disposition: Did not require urgent referral Impression Primary Impression: Acute bronchitis Scribe Attestation The scribe's documentation has been prepared under my direction and personally reviewed by me in its entirety. I confirm that the note above accurately reflects all work, treatment, procedures, and medical decision making performed by me. Departure Information Dispostion Home / Self-Care Prescriptions Azithromycin (Zithromax) 250 Mg Tab 250 MG PO DAILY, #4 TAB Prov: Mohsen Faria M.D. 05/18/17 Prednisone (Prednisone) 20 Mg Tab 3 TAB PO DAILY for 4 Days, #12 TAB FOR 4 DAYS Prov: Mohsen Faria M.D. 05/18/17 Referrals Jamia Carlton D.OTracy (PCP) Patient Instructions Chest Cold (Bronchitis) - [facility], My [facility] Additional Instructions Please follow up with your primary care physician in the next 1-3 days for re- evaluation. You likely have a bronchitis Otherwise, your exam, EKG, chest xray, and lab results did not show signs of an emergent condition at this time. Azithromycin and Prednisone as directed. Use your inhaler 2 puffs every 4 hours for the next 48 hours and then as needed thereafter. Acetaminophen and ibuprofen for pain and fever as needed. Plenty of fluids to ensure hydration. Avoid second hand smoke. Return to the emergency department for worsening symptoms as described in the accompanying instructions.
--- NOTE | 2017-05-17 22:43 | DIAGNOSTIC IMAGING REPORT ---
CHEST ONE VIEW PORTABLE HISTORY: 46 years-old Female CHEST PAIN acute atypical chest pain COMPARISON: Chest radiograph 02/28/2017, CTA of the chest 02/28/2017 TECHNIQUE: Portable AP view of the chest FINDINGS: Cardiomediastinal and hilar silhouettes are within normal limits. No pneumothorax, pleural effusion, focal airspace consolidation or overt pulmonary edema. Bones of the chest are grossly intact. IMPRESSION: No acute process. The above report was generated using voice recognition software. It may contain grammatical, syntax or spelling errors. Electronically signed by: Leo Shields M.D. 05/17/2017 10:41 PM Dictated Date/Time: 05/17/2017 10:40 PM
[2017-05-17 22:52] VITALS: O2SAT 97
[2017-05-17 23:01] LABS: BASO % 0.5 %; BASO ABS # 0.04 K/uL (0-0.2); EOS % 2.7 %; EOS ABS # 0.24 K/uL (0-0.5); HEMOGLOBIN 11.4 g/dL (12.0-16.0); IG# 0.11 K/uL (0.00-0.02); LYMPH % 34.5 %; LYMPH ABS # 3.04 K/uL (1.2-3.4); MEAN CELL VOLUME 87.1 fL (80-100); MEAN CORPUSCULAR HEMOGLOBIN 28.4 pg (25-34); MEAN CORPUSCULAR HGB CONC 32.6 g/dl (32-36); MEAN PLATELET VOLUME 9.6 fL (7.4-10.4); MONO % 7.9 %; NEUT % 53.2 %; NEUT ABS # 4.68 K/uL (1.4-6.5); PLATELET COUNT 322 K/uL (130-400); RED CELL DISTRIBUTION WIDTH CV 16.2 % (11.5-14.5); RED CELL DISTRIBUTION WIDTH SD 51.9 fL (36.4-46.3); WHITE BLOOD COUNT 8.81 K/uL (4.8-10.8)
[2017-05-17 23:14] VITALS: PULSE 79; O2SAT 98
[2017-05-17 23:18] LABS: ALBUMIN 3.5 gm/dl (3.4-5.0); ALT/SGPT 19 U/L (12-78); AST/SGOT 9 U/L (15-37); BLOOD UREA NITROGEN 13 mg/dl (7-18); CALCIUM 8.4 mg/dl (8.5-10.1); CARBON DIOXIDE 28 mmol/L (21-32); CREATININE 0.93 mg/dl (0.60-1.20); GLUCOSE 125 mg/dl (70-99); LIPASE 230 U/L (73-393); POTASSIUM 3.5 mmol/L (3.5-5.1); SODIUM 139 mmol/L (136-145)
[2017-05-17 23:23] LABS: ALKALINE PHOSPHATASE 81 U/L (45-117); TOTAL PROTEIN 6.8 gm/dl (6.4-8.2)
[2017-05-17 23:36] LABS: INFLUENZA B ANTIGEN Neg for Influ B (NEG)
[2017-05-17 23:56] LABS: INFLUENZA A PCR Neg for Influ A (NEG); INFLUENZA B PCR Neg for Influ B (NEG)
[2017-05-18] MEDS ORDERED: PRED20TA PO (00:39)
[2017-05-18] MEDS ORDERED: AZIT250T PO (00:39)
[2017-05-18 00:49] VITALS: BP 120/59; PULSE 99; O2SAT 95
[2017-08-24] MEDS ORDERED: LEVO25TA5 PO (11:45)
[2017-08-24] MEDS ORDERED: ASPI-320 PO (11:45)
== END 2017-05-18 00:50 | disposition home or self-care (01) ==
LOC: C.EDB 21:47 → C.EDA 05-18 00:50
DX: J20.9 Acute bronchitis, unspecified (principal); J45.909 Unspecified asthma, uncomplicated; M79.7 Fibromyalgia; E03.9 Hypothyroidism, unspecified; E78.5 Hyperlipidemia, unspecified; Z87.891 Personal history of nicotine dependence; Z98.891 History of uterine scar from previous surgery; Z90.49 Acquired absence of other specified parts of digestive tract; Z90.89 Acquired absence of other organs; Z98.890 Other specified postprocedural states; Z83.3 Family history of diabetes mellitus; Z84.1 Family history of disorders of kidney and ureter; Z79.899 Other long term (current) drug therapy

== ENCOUNTER 2017-08-22 16:32 | Observation (INO) | payer OTHER ==
[~2017-08-22] VITALS: Ht 147.3 cm; Wt 84.7 kg
[~2017-08-22 16:32] MED LIST changes: +AZIT250T PO
[2017-08-22] MEDS ORDERED: SODIUM CHLORIDE 0.9% 500ML 500 ML IV STA (16:57)
[2017-08-22] MEDS ORDERED: METHYLPREDNISOLONE 125 MG VIAL IV STA (16:57)
[2017-08-22] MEDS ORDERED: DiphenhydrAMINE HCL 50 MG/ML VIAL IV STA (16:57)
[2017-08-22 17:11] LABS: BASO % 0.2 %; BASO ABS # 0.02 K/uL (0-0.2); EOS % 1.4 %; EOS ABS # 0.11 K/uL (0-0.5); HEMATOCRIT 35.4 % (37-47); HEMOGLOBIN 11.8 g/dL (12.0-16.0); IG# 0.02 K/uL (0.00-0.02); LYMPH ABS # 2.41 K/uL (1.2-3.4); MEAN CELL VOLUME 86.3 fL (80-100); MEAN CORPUSCULAR HEMOGLOBIN 28.8 pg (25-34); MEAN CORPUSCULAR HGB CONC 33.3 g/dl (32-36); MEAN PLATELET VOLUME 10.2 fL (7.4-10.4); MONO % 8.7 %; NEUT % 59.5 %; NEUT ABS # 4.77 K/uL (1.4-6.5); PLATELET COUNT 284 K/uL (130-400); RED CELL DISTRIBUTION WIDTH CV 14.9 % (11.5-14.5); WHITE BLOOD COUNT 8.03 K/uL (4.8-10.8)
[2017-08-22] MEDS ORDERED: MECL1TAB42 PO (17:11)
[2017-08-22] MEDS ORDERED: TIZA2CAP PO (17:11)
[2017-08-22] MEDS ORDERED: CLR10 PO (17:11)
[2017-08-22] MEDS ORDERED: TOPI25TA99 PO (17:11)
--- NOTE | 2017-08-22 17:14 | DIAGNOSTIC IMAGING REPORT ---
TWO VIEW CHEST CLINICAL HISTORY: Atypical chest pain. FINDINGS: PA and lateral chest radiographs are compared to study dated 05/17/2017 and correlated with chest CT dated 02/28/2017. The frontal view is degraded by patient rotation. The cardiomediastinal silhouette is unremarkable. The lungs and pleural spaces are clear. There is no pneumothorax. The bony thorax appears intact. Fusion hardware is partially visualized in the lumbar spine. Cholecystectomy clips are noted. IMPRESSION: No active disease in the chest. Electronically signed by: Js Bennett M.D. 08/22/2017 5:13 PM Dictated Date/Time: 08/22/2017 5:12 PM
[2017-08-22] MEDS: NITROGLYCERIN 0.4 MG SL PER TAB CHARGE SL PRN ×2 (17:15→17:20)
[2017-08-22] MEDS ORDERED: OPTIRAY 320 IV PRN (17:15)
[2017-08-22 17:23] LABS: INR 0.9 (0.9-1.1); PTT PATIENT 26.5 SECONDS (21.0-31.0)
[2017-08-22 17:30] LABS: ALBUMIN 3.9 gm/dl (3.4-5.0); ALT/SGPT 20 U/L (12-78); BLOOD UREA NITROGEN 14 mg/dl (7-18); CALCIUM 8.9 mg/dl (8.5-10.1); CARBON DIOXIDE 22 mmol/L (21-32); CREATININE 0.66 mg/dl (0.60-1.20); GLUCOSE 91 mg/dl (70-99); LIPASE 186 U/L (73-393); POTASSIUM 3.5 mmol/L (3.5-5.1); SODIUM 139 mmol/L (136-145)
[2017-08-22 17:35] LABS: ALKALINE PHOSPHATASE 80 U/L (45-117); AST/SGOT 12 U/L (15-37)
--- NOTE | 2017-08-22 17:59 | EMERGENCY ROOM VISIT NOTE ---
ED Visit Note First contact with patient: 16:33 CHIEF COMPLAINT: Chest pain, shortness of breath HISTORY OF PRESENTING ILLNESS: This is a 47-year-old female with past medical history of PE, type 2 diabetes on metformin, hyperlipidemia, fibromyalgia, diabetes insipidus and hypothyroidism, who presents to the emergency department via EMS with complaint of chest pain and shortness of breath that began at noon today. Patient describes the pain as tightness and stabbing, in the center of her chest and radiates to her right shoulder, worse with lying down and taking a deep breath, 5/10. She states her pain was initially 8/10, she received 1 sublingual spray of nitroglycerin by EMS, which did improve her pain. She has had associated shortness of breath with this pain as well, which she states gets worse with any exertion. Patient states that her symptoms feel similar to when she had a PE, which she states she got in January 2016. She states she had been treated on Xarelto, she was taken off of this for surgery and then was on Lovenox, but states that she developed hematomas, so has not been on any blood thinners since December 2016. She does note that she has had some left calf pain since yesterday, she denies any known injuries. She denies any recent surgery, long travel, or other immobilization. She is post-menopausal due to hysterectomy at age 34, she is on Premarin estrogen vaginal cream, but denies any other exogenous estrogen use. She denies any headache, vision changes, neck pain, back pain, abdominal pain, nausea or vomiting, diarrhea, bloody or black stools, urinary symptoms, or rash. REVIEW OF SYSTEMS: A complete 10 point review of systems was reviewed with the patient with pertinent positives and negatives as per history of present illness. All else were negative. PAST MEDICAL HISTORY: Reviewed in chart and as above FAMILY HISTORY: Father with history of heart disease, 2 MIs in his 50s and has a pacemaker and AICD SOCIAL HISTORY: Lives at home. She denies tobacco use, alcohol or recreational drug use. ALLERGIES: Reviewed in chart. PHYSICAL EXAM: CONSTITUTIONAL: Pleasant and cooperative. No acute distress, but appears uncomfortable. Well appearing and well nourished. HEENT: Normocephalic, atraumatic. Pupils equal, round and reactive to light, EOMI. TMs normal. Pharynx normal. NECK: Supple, full active range of motion without discomfort. RESPIRATORY: Clear to auscultation bilaterally with no wheezing, crackles, rhonchi or stridor. Equal expansion bilaterally. CARDIOVASCULAR: Regular rate and rhythm with no murmurs, rubs or gallops. Normal peripheral perfusion. No edema. GASTROINTESTINAL: Soft, nontender, nondistended. No palpable masses or HSM. Bowel sounds present in all quadrants. MUSCULOSKELETAL: Full range of motion of all joints without discomfort. Mild tenderness of the posterior left calf and knee to palpation, no erythema, warmth , or swelling appreciated. INTEGUMENTARY: No rash or other significant dermatologic conditions noted. NEUROLOGIC: Alert and oriented X 4 with normal affect. Cranial nerves II-XII grossly intact. No focal neurologic deficits noted. Normal strength and sensation in all 4 extremities. Normal speech. Normal gait observed. ED COURSE AND MEDICAL DECISION MAKING: CC: Patient presenting with complaint of chest pain, shortness of breath DIFFERENTIAL DIAGNOSIS: Includes, but not limited to PE, DVT, ACS, pneumonia, bronchitis, pericarditis, pleuritis, pneumothorax, among others. INTERPRETATION OF LABS: No leukocytosis, mild anemia, no significant electrolyte abnormalities, normal renal function, normal liver enzymes and lipase. Coagulation factors within normal limits. Troponin negative 2. IMAGING: TWO VIEW CHEST CLINICAL HISTORY: Atypical chest pain. FINDINGS: PA and lateral chest radiographs are compared to study dated 05/17/2017 and correlated with chest CT dated 02/28/2017. The frontal view is degraded by patient rotation. The cardiomediastinal silhouette is unremarkable. The lungs and pleural spaces are clear. There is no pneumothorax. The bony thorax appears intact. Fusion hardware is partially visualized in the lumbar spine. Cholecystectomy clips are noted. IMPRESSION: No active disease in the chest. ----- L VENOUS DOPP LOWER EXT UNILAT CLINICAL HISTORY: 47 years-old Female presenting with left leg pain, hx of PE, eval DVT. TECHNIQUE: Real-time grayscale and color and spectral Doppler ultrasound imaging of the veins of the left lower extremity was performed. Compression and augmentation were also utilized. COMPARISON: None. FINDINGS: Left: Common femoral vein: Patent. Greater saphenous vein: Patent. Deep femoral vein: Patent. Femoral vein: Patent. Popliteal vein: Patent. Calf veins: Patent. Other: None. IMPRESSION: No evidence of deep venous thrombosis. ----- CT ANGIOGRAM OF THE CHEST CLINICAL HISTORY: Atypical chest pain. COMPARISON STUDY: Chest x-ray dated 08/22/2017. Chest CT scans dated 02/28/2017 and 03/26/2014. TECHNIQUE: Following the IV administration of 115 cc of Optiray 320, CT angiogram of the chest was performed from the upper abdomen to the thoracic inlet utilizing the pulmonary embolus protocol. Images are reviewed in the axial, sagittal, and coronal planes. 3-D MIPS images are created and assessed. IV contrast was administered without complication. A dose lowering technique was utilized adhering to the principles of ALARA. CT DOSE: 541.70 mGycm FINDINGS: Thyroid: Imaged portions of the thyroid gland are normal in size and attenuation. Thoracic aorta: The thoracic aorta is normal in caliber and demonstrates 4-vessel variant arch anatomy. No dissection is seen. Pulmonary vasculature: The pulmonary trunk is normal in caliber. There are no filling defects identified in main, lobar, or segmental pulmonary branches to suggest pulmonary embolus. Heart: The heart is mildly enlarged noting trace pericardial fluid. Lungs and pleural spaces: The lungs and pleural spaces are clear noting minimal dependent atelectasis. The trachea and central airways are patent. Mediastinum: There is no mediastinal lymphadenopathy. Estrella: Clear. Axillae: There is no axillary lymphadenopathy. Upper abdomen: Cholecystectomy clips are noted. Partially visualized upper abdominal viscera is within normal limits. Skeletal structures: No lytic or blastic bony lesions are seen. IMPRESSION: 1. There is no evidence of pulmonary embolus in the main, lobar, or segmental pulmonary arteries. 2. The lungs are clear. 3. Mild cardiac enlargement. EKG: Shows normal sinus rhythm with a rate of 64 bpm, no acute ischemic changes noted, no significant changes noted when compared to previous EKG from 05/17/2017 by my interpretation. MEDICATION RECONCILIATION: I attest that I have personally reviewed the patient 's current medication list. INITIAL VITAL SIGNS REVIEW: I reviewed the patient's initial vital signs and interpret them as follows: T: Afebrile; BP: Normotensive; HR: Within normal limits; RR: Within normal limits; Pulse Ox: Within normal limits on room air. Blood pressure screening: The patient was found to have normal blood pressure on screening and does not require follow-up for repeat blood pressure check. SUMMARY: Patient was evaluated at bedside, history and physical exam performed. Patient is alert and oriented, no acute distress, resting calmly in the stretcher. Lungs are clear to auscultation. The patient does not have any labored breathing, tachypnea, or hypoxia on room air. Patient complaining of constant chest pain since 12 PM, states some improvement after receiving nitro spray from EMS. Additional nitroglycerin ordered. Patient denies personal history of CAD, but notes family history of this. She states her symptoms today feel very similar to when she had a PE in the past. EKG normal sinus rhythm with no acute ischemic changes. Orders were placed at bedside for labs, chest x-ray, venous duplex of the left leg to rule out DVT, CTA of the chest to evaluate for PE. Patient discussed with Dr. Velasquez, who agrees with my assessment and plan. Labs and imaging reviewed as above, negative for PE, troponin negative x2. Patient reassessed multiple times throughout ED stay, she states her chest pain is fully relieved after receiving another 2 sublingual nitro tabs. Given the patient's risk factors and chest pain relieved with nitroglycerin, I feel that she would benefit from an admission for chest pain rule out/cardiac stress test. I spoke with Dr. Zhou, [facility] Hospitalist, who agrees to evaluate the patient for admission. Patient was updated on all results and plan for admission, she verbalized understanding, and was agreeable to this plan. Patient was stable at time of admission. Problem List Medical Problems: (1) Fibromyalgia Status: Chronic (2) Hyperlipidemia Status: Chronic (3) Hypothyroidism Status: Chronic Current/Historical Medications Scheduled Desmopressin Acetate (Desmopressin Acetate), 0.1 MG PO BID Docusate Sodium (Colace), 1 CAP PO BID Duloxetine Hcl (Cymbalta), 80 MG PO DAILY Estrogens, Conjugated (Premarin), 1 APPLN EXT 2XWK Levothyroxine Sodium (Levothyroxine Sodium), 25 MCG PO QAM Loratadine (Claritin), 10 MG PO DAILY Metformin Hcl Er (Glucophage Er), 500 MG PO QPM Montelukast Sodium (Singulair), 10 MG PO HS Omeprazole (Prilosec), 40 MG PO BID Ranitidine HCl (Ranitidine HCl), 150 MG PO BID Simvastatin (Simvastatin), 20 MG PO HS Tizanidine (Zanaflex), 2 MG PO TID Topiramate (Topamax ), 75 MG PO HS Trazodone Hcl (Trazodone), 100 MG PO HS Scheduled PRN Albuterol Sulfate (Proair Respiclick), 2 PUFFS PO Q4 PRN for SOB/Wheezing Meclizine Hcl (Meclizine Hcl), 25 MG PO TID PRN for Dizziness or Vertigo Allergies Coded Allergies: Bupropion (Verified Allergy, Severe, SKIN BREAKDOWN, 05/17/17) Loracarbef (Verified Allergy, Intermediate, HIVES, 05/17/17) Naproxen (Verified Allergy, Intermediate, HIVES, 05/17/17) Penicillins (Verified Allergy, Intermediate, HIVES, 05/17/17) Sulfa Antibiotics (Verified Allergy, Intermediate, HIVES, 05/17/17) Torsemide (Verified Allergy, Intermediate, HIVES - PATIENT CAN TOLERATE LASIX, 05/17/17) Cephalosporins (Verified Allergy, Unknown, hives, 05/17/17) Hydrochlorothiazide (Verified Allergy, Unknown, UNKNOWN, 05/17/17) Uncoded Allergies: CONTRAST (Allergy, Unknown, itchiness, 02/28/17) generalized itchiness. no hives. Vital Signs Date Time Temp Pulse Resp B/P (MAP) Pulse Ox O2 Delivery O2 Flow Rate FiO2 08/22/17 19:30 62 16 109/82 98 Room Air 08/22/17 18:40 55 20 141/86 98 Room Air 08/22/17 17:19 75 17 116/67 93 Room Air 08/22/17 16:50 96 Room Air 08/22/17 16:40 96 Room Air 08/22/17 16:40 66 12 130/78 96 Room Air Laboratory Results 08/22/17 16:45 Red Blood Count 4.10, Mean Corpuscular Volume 86.3, Mean Corpuscular Hemoglobin 28.8, Mean Corpuscular Hemoglobin Concent 33.3, Mean Platelet Volume 10.2, Neutrophils (%) (Auto) 59.5, Lymphocytes (%) (Auto) 30.0, Monocytes (%) (Auto) 8.7, Eosinophils (%) (Auto) 1.4, Basophils (%) (Auto) 0.2, Neutrophils # (Auto) 4.77, Lymphocytes # (Auto) 2.41, Monocytes # (Auto) 0.70, Eosinophils # (Auto) 0.11, Basophils # (Auto) 0.02 08/22/17 16:45 Test 08/22/17 16:45 08/22/17 18:41 White Blood Count 8.03 K/uL (4.8-10.8) Red Blood Count 4.10 M/uL (4.2-5.4) Hemoglobin 11.8 g/dL (12.0-16.0) Hematocrit 35.4 % (37-47) Mean Corpuscular Volume 86.3 fL (80-100) Mean Corpuscular Hemoglobin 28.8 pg (25-34) Mean Corpuscular Hemoglobin Concent 33.3 g/dl (32-36) Platelet Count 284 K/uL (130-400) Mean Platelet Volume 10.2 fL (7.4-10.4) Neutrophils (%) (Auto) 59.5 % Lymphocytes (%) (Auto) 30.0 % Monocytes (%) (Auto) 8.7 % Eosinophils (%) (Auto) 1.4 % Basophils (%) (Auto) 0.2 % Neutrophils # (Auto) 4.77 K/uL (1.4-6.5) Lymphocytes # (Auto) 2.41 K/uL (1.2-3.4) Monocytes # (Auto) 0.70 K/uL (0.11-0.59) Eosinophils # (Auto) 0.11 K/uL (0-0.5) Basophils # (Auto) 0.02 K/uL (0-0.2) RDW Standard Deviation 47.0 fL (36.4-46.3) RDW Coefficient of Variation 14.9 % (11.5-14.5) Immature Granulocyte % (Auto) 0.2 % Immature Granulocyte # (Auto) 0.02 K/uL (0.00-0.02) Prothrombin Time 9.9 SECONDS (9.0-12.0) Prothromb Time International Ratio 0.9 (0.9-1.1) Activated Partial Thromboplast Time 26.5 SECONDS (21.0-31.0) Partial Thromboplastin Ratio 1.0 Anion Gap 12.0 mmol/L (3-11) Est Creatinine Clear Calc Drug Dose 95.7 ml/min Estimated GFR () 121.1 Estimated GFR (Non- 104.5 BUN/Creatinine Ratio 21.1 (10-20) Calcium Level 8.9 mg/dl (8.5-10.1) Total Bilirubin 0.3 mg/dl (0.2-1) Direct Bilirubin < 0.1 mg/dl (0-0.2) Aspartate Amino Transf (AST/SGOT) 12 U/L (15-37) Alanine Aminotransferase (ALT/SGPT) 20 U/L (12-78) Alkaline Phosphatase 80 U/L (45-117) Total Protein 7.0 gm/dl (6.4-8.2) Albumin 3.9 gm/dl (3.4-5.0) Lipase 186 U/L (73-393) Troponin I < 0.015 ng/ml (0-0.045) Medications Administered Medications (Trade) Dose Ordered Sig/Tyler Route Start Time Stop Time Status Last Admin Dose Admin Nitroglycerin (Nitrostat Tab) 0.4 mg Q5M PRN SL 08/22/17 17:00 08/22/17 22:13 DC 08/22/17 17:20 0.4 MG Methylprednisolone Sodium Succinate (Solu-Medrol IV) 125 mg NOW STAT IV 08/22/17 16:57 08/22/17 17:01 DC 08/22/17 17:16 125 MG Diphenhydramine HCl (Benadryl Inj) 50 mg NOW STAT IV 08/22/17 16:57 08/22/17 17:01 DC 08/22/17 18:36 50 MG Sodium Chloride 500 ml @ 999 mls/hr Q31M STAT IV 08/22/17 16:57 08/22/17 17:27 DC 08/22/17 17:16 999 MLS/HR Departure Information Referrals Jamia Carlton D.O. (PCP) Patient Instructions My [facility]
--- NOTE | 2017-08-22 18:10 | DIAGNOSTIC IMAGING REPORT ---
L VENOUS DOPP LOWER EXT UNILAT CLINICAL HISTORY: 47 years-old Female presenting with left leg pain, hx of PE, eval DVT. TECHNIQUE: Real-time grayscale and color and spectral Doppler ultrasound imaging of the veins of the left lower extremity was performed. Compression and augmentation were also utilized. COMPARISON: None. FINDINGS: Left: Common femoral vein: Patent. Greater saphenous vein: Patent. Deep femoral vein: Patent. Femoral vein: Patent. Popliteal vein: Patent. Calf veins: Patent. Other: None. IMPRESSION: No evidence of deep venous thrombosis. Electronically signed by: Chidi Robles M.D. 08/22/2017 6:09 PM Dictated Date/Time: 08/22/2017 6:08 PM
--- NOTE | 2017-08-22 19:40 | DIAGNOSTIC IMAGING REPORT ---
CT ANGIOGRAM OF THE CHEST CLINICAL HISTORY: Atypical chest pain. COMPARISON STUDY: Chest x-ray dated 08/22/2017. Chest CT scans dated 02/28/2017 and 03/26/2014. TECHNIQUE: Following the IV administration of 115 cc of Optiray 320, CT angiogram of the chest was performed from the upper abdomen to the thoracic inlet utilizing the pulmonary embolus protocol. Images are reviewed in the axial, sagittal, and coronal planes. 3-D MIPS images are created and assessed. IV contrast was administered without complication. A dose lowering technique was utilized adhering to the principles of ALARA. CT DOSE: 541.70 mGycm FINDINGS: Thyroid: Imaged portions of the thyroid gland are normal in size and attenuation. Thoracic aorta: The thoracic aorta is normal in caliber and demonstrates 4-vessel variant arch anatomy. No dissection is seen. Pulmonary vasculature: The pulmonary trunk is normal in caliber. There are no filling defects identified in main, lobar, or segmental pulmonary branches to suggest pulmonary embolus. Heart: The heart is mildly enlarged noting trace pericardial fluid. Lungs and pleural spaces: The lungs and pleural spaces are clear noting minimal dependent atelectasis. The trachea and central airways are patent. Mediastinum: There is no mediastinal lymphadenopathy. Estrella: Clear. Axillae: There is no axillary lymphadenopathy. Upper abdomen: Cholecystectomy clips are noted. Partially visualized upper abdominal viscera is within normal limits. Skeletal structures: No lytic or blastic bony lesions are seen. IMPRESSION: 1. There is no evidence of pulmonary embolus in the main, lobar, or segmental pulmonary arteries. 2. The lungs are clear. 3. Mild cardiac enlargement. Electronically signed by: Js Bennett M.D. 08/22/2017 7:39 PM Dictated Date/Time: 08/22/2017 7:33 PM
[2017-08-22] MEDS ORDERED: ALUMINUM/MAGNESIUM/SIMETH (MAALOX MAX) 30 ML UDC PO PRN (21:15)
[2017-08-22] MEDS ORDERED: ACETAMINOPHEN 325 MG TAB PO PRN (21:15)
[2017-08-22] MEDS ORDERED: NITROGLYCERIN 0.4 MG SL PER TAB CHARGE SL PRN (21:15)
[2017-08-22] MEDS ORDERED: IV FLUIDS COMPLETED PRN (21:15)
[2017-08-22] MEDS ORDERED: DULO60CA44 PO (21:20)
[2017-08-22] MEDS ORDERED: DOCU-94 PO (21:20)
[2017-08-22] MEDS ORDERED: PRMVC EXT (21:20)
[2017-08-22] MEDS ORDERED: ALBU18002 PO (21:20)
[2017-08-22] MEDS ORDERED: GLUCOSE 40% GEL 15 GM TUBE PO PRN (21:30)
[2017-08-22] MEDS ORDERED: GLUCAGON FOR INJ 1 MG VIAL SQ PRN (21:30)
[2017-08-22] MEDS ORDERED: ALBUTEROL HFA 8 GM INHALER INH PRN (21:30)
[2017-08-22] MEDS ORDERED: MECLIZINE HCL 12.5 MG TAB PO PRN (21:30)
[2017-08-22] MEDS ORDERED: DEXTROSE 50% 50 ML SYR IV PRN (21:30)
[2017-08-22] MEDS ORDERED: GLUCOSE 10 TABS/TUBE PO PRN (21:30)
--- NOTE | 2017-08-22 21:32 | History and Physical ---
History & Physical Date & Time of Service: Aug 22, 2017 at 21:27 Chief Complaint: Chest Tightness, Sob Primary Care Physician: Jamia Carlton D.O. History of Present Illness Source: patient, clinic records, hospital records Patient is a 47-year-old female with a past medical history of pre-diabetes, HLD , hypothyroidism, diabetes insipidus, GERD and other medical problems listed below who presents with chest pain starting today at noon. Patient describes pain as 8/10 tight, stabbing centrally located chest pain with radiation to right shoulder. Pain is worse with exertion and was alleviated in the ED with dose of ntg. Associated shortness of breath. Also endorses bouts of lightheadedness and posterior headaches for the past 2 weeks. Patient had a PE in January 2016 and was on Xarelto. States that this pain is somewhat similar. Also has a history of GERD but states that this pain is not similar. Denies personal history of heart disease but endorses a strong family history. Had an exercise stress test outside hospital that was negative. Denies fever, chills, dizziness, near syncope, visual changes, palpitations, abdominal pain, nausea, vomiting, bowel or bladder changes or LE swelling. Past Medical/Surgical History Medical Problems: (1) Asthma Status: Chronic (2) C. difficile colitis Permanent Comment: s/p fecal transplant in Dec 2015 Status: Chronic (3) Depression Status: Chronic (4) Diabetes insipidus Status: Chronic (5) Fibromyalgia Status: Chronic (6) GERD (gastroesophageal reflux disease) Status: Chronic (7) Headache Status: Chronic (8) Hyperlipidemia Status: Chronic (9) Hypothyroidism Status: Chronic (10) IBS (irritable bowel syndrome) Status: Chronic (11) Irritable bowel syndrome Status: Chronic (12) Low back pain Status: Chronic (13) EVANGELINA (obstructive sleep apnea) Status: Chronic (14) Right upper quadrant abdominal pain Status: Chronic (15) Vertigo Status: Chronic (16) Vitamin D deficiency Status: Chronic Surgical Problems: (1) H/O hernia repair Status: Resolved (2) History of carpal tunnel surgery Status: Resolved (3) History of delivery Status: Resolved (4) History of cholecystectomy Status: Resolved (5) History of hernia repair Status: Resolved (6) History of tonsillectomy Status: Resolved (7) History of uvulectomy Status: Resolved (8) Status post breast reduction Status: Resolved Family History Diabetes mellitus Gallbladder disease Heart disease Kidney disease Kidney stones Social History Smoking Status: Never Smoker Alcohol Use: occasionally Marital Status: in relationship Housing status: lives with family Occupational Status: employed Allergies Coded Allergies: Bupropion (Verified Allergy, Severe, SKIN BREAKDOWN, 05/17/17) Loracarbef (Verified Allergy, Intermediate, HIVES, 05/17/17) Naproxen (Verified Allergy, Intermediate, HIVES, 05/17/17) Penicillins (Verified Allergy, Intermediate, HIVES, 05/17/17) Sulfa Antibiotics (Verified Allergy, Intermediate, HIVES, 05/17/17) Torsemide (Verified Allergy, Intermediate, HIVES - PATIENT CAN TOLERATE LASIX, 05/17/17) Cephalosporins (Verified Allergy, Unknown, hives, 05/17/17) Hydrochlorothiazide (Verified Allergy, Unknown, UNKNOWN, 05/17/17) Uncoded Allergies: CONTRAST (Allergy, Unknown, itchiness, 02/28/17) generalized itchiness. no hives. Home Medications Scheduled Desmopressin Acetate (Desmopressin Acetate), 0.1 MG PO BID Docusate Sodium (Colace), 1 CAP PO BID Duloxetine Hcl (Cymbalta), 80 MG PO DAILY Estrogens, Conjugated (Premarin), 1 APPLN EXT 2XWK Levothyroxine Sodium (Levothyroxine Sodium), 25 MCG PO QAM Loratadine (Claritin), 10 MG PO DAILY Metformin Hcl Er (Glucophage Er), 500 MG PO QPM Montelukast Sodium (Singulair), 10 MG PO HS Omeprazole (Prilosec), 40 MG PO BID Ranitidine HCl (Ranitidine HCl), 150 MG PO BID Simvastatin (Simvastatin), 20 MG PO HS Tizanidine (Zanaflex), 2 MG PO TID Topiramate (Topamax ), 75 MG PO HS Trazodone Hcl (Trazodone), 100 MG PO HS Scheduled PRN Albuterol Sulfate (Proair Respiclick), 2 PUFFS PO Q4 PRN for SOB/Wheezing Meclizine Hcl (Meclizine Hcl), 25 MG PO TID PRN for Dizziness or Vertigo Review of Systems Ten systems reviewed and negative except as noted in the HPI. Physical Exam Vital Signs Date Time Temp Pulse Resp B/P (MAP) Pulse Ox O2 Delivery O2 Flow Rate FiO2 08/22/17 19:30 62 16 109/82 98 Room Air 08/22/17 18:40 55 20 141/86 98 Room Air 08/22/17 17:19 75 17 116/67 93 Room Air 08/22/17 16:50 96 Room Air 08/22/17 16:40 96 Room Air 08/22/17 16:40 66 12 130/78 96 Room Air General Appearance: WD/WN, no apparent distress, + obese Head: normocephalic, atraumatic ENT: normal ENT inspection, hearing grossly normal, pharynx normal (moist mucous membranes ) Neck: supple, thyroid normal, trachea midline Respiratory/Chest: lungs clear, normal breath sounds, no respiratory distress, no accessory muscle use, + pertinent finding (Chest wall TTP ) Cardiovascular: regular rate, rhythm, no murmur, normal peripheral pulses Abdomen/GI: non tender, soft, no organomegaly Back: normal inspection Extremities/Musculoskelatal: normal inspection, no calf tenderness, no pedal edema Neurologic/Psych: no motor/sensory deficits, alert, normal mood/affect, oriented x 3 Skin: normal color, warm/dry, no rash Diagnostics Laboratory Results Results Past 24 Hours Test 08/22/17 16:45 08/22/17 18:41 Range/Units White Blood Count 8.03 4.8-10.8 K/uL Red Blood Count 4.10 4.2-5.4 M/uL Hemoglobin 11.8 12.0-16.0 g/dL Hematocrit 35.4 37-47 % Mean Corpuscular Volume 86.3 80-100 fL Mean Corpuscular Hemoglobin 28.8 25-34 pg Mean Corpuscular Hemoglobin Concent 33.3 32-36 g/dl Platelet Count 284 130-400 K/uL Mean Platelet Volume 10.2 7.4-10.4 fL Neutrophils (%) (Auto) 59.5 % Lymphocytes (%) (Auto) 30.0 % Monocytes (%) (Auto) 8.7 % Eosinophils (%) (Auto) 1.4 % Basophils (%) (Auto) 0.2 % Neutrophils # (Auto) 4.77 1.4-6.5 K/uL Lymphocytes # (Auto) 2.41 1.2-3.4 K/uL Monocytes # (Auto) 0.70 0.11-0.59 K/uL Eosinophils # (Auto) 0.11 0-0.5 K/uL Basophils # (Auto) 0.02 0-0.2 K/uL RDW Standard Deviation 47.0 36.4-46.3 fL RDW Coefficient of Variation 14.9 11.5-14.5 % Immature Granulocyte % (Auto) 0.2 % Immature Granulocyte # (Auto) 0.02 0.00-0.02 K/uL Prothrombin Time 9.9 9.0-12.0 SECONDS Prothromb Time International Ratio 0.9 0.9-1.1 Activated Partial Thromboplast Time 26.5 21.0-31.0 SECONDS Partial Thromboplastin Ratio 1.0 Sodium Level 139 136-145 mmol/L Potassium Level 3.5 3.5-5.1 mmol/L Chloride Level 105 98-107 mmol/L Carbon Dioxide Level 22 21-32 mmol/L Anion Gap 12.0 3-11 mmol/L Blood Urea Nitrogen 14 7-18 mg/dl Creatinine 0.66 0.60-1.20 mg/dl Est Creatinine Clear Calc Drug Dose 95.7 ml/min Estimated GFR () 121.1 Estimated GFR (Non- 104.5 BUN/Creatinine Ratio 21.1 10-20 Random Glucose 91 70-99 mg/dl Calcium Level 8.9 8.5-10.1 mg/dl Total Bilirubin 0.3 0.2-1 mg/dl Direct Bilirubin < 0.1 0-0.2 mg/dl Aspartate Amino Transf (AST/SGOT) 12 15-37 U/L Alanine Aminotransferase (ALT/SGPT) 20 12-78 U/L Alkaline Phosphatase 80 45-117 U/L Troponin I < 0.015 < 0.015 0-0.045 ng/ml Total Protein 7.0 6.4-8.2 gm/dl Albumin 3.9 3.4-5.0 gm/dl Lipase 186 73-393 U/L Diagnostic Radiology CXR: IMPRESSION: No active disease in the chest. Chest/thorax CTA: IMPRESSION: 1. There is no evidence of pulmonary embolus in the main, lobar, or segmental pulmonary arteries. 2. The lungs are clear. 3. Mild cardiac enlargement. Bilateral lower extremity ultrasound: IMPRESSION: No evidence of deep venous thrombosis. EKG Normal sinus rhythm. Inferior infarct , age undetermined No change from prior EKG Impression Assessment and Plan Patient is a 47-year-old female with a past medical history of pre-diabetes, HLD , hypothyroidism, diabetes insipidus, GERD and other medical problems listed below who presents with chest pain starting today at noon. Chest pain: -R/o ACS; risk factors include HLD, pre-diabetes, family history -Initial troponin negative -EKG- NSR at 64 bpm -CXR-no acute events -Trend serial cardiac enzymes -Fasting lipid panel, hgb a1c in AM -Baby aspirin -Repeat EKG in am -NPO after midnight for exercise stress echo in AM HLD: -Cont statin Pre-diabetes: -A1c of 5.8 in Dec 2016 -Hold metformin -SSI while in-patient -BSG checks AC HS Diabetes insipidus: -Cont DDAVP GERD: -Cont PPI, H2 katie EVANGELINA: -No CPAP of O2 overnight Hypothyroidism: -Cont levothyroxine IBS: -Cont Colace Migraine headaches: -Cont Topamax prophylaxis H/o c diff: -S/p fecal transplant in Dec 2015 -No diarrhea currently Depression: -Cont Cymbalta, trazodone Asthma: -Cont singulair, albuterol PRN DVT Ppx: SQ heparin Code status: FULL PCP: Dhara Carlton Dispo: Obs telemetry. Plan to return home once medically stable. Patient seen in collaboration with Dr. Zhou. Please see addendum. Attending addendum: Admitted with chest pain with strong family history of ischemic heart disease The pain is controlled with sublingual nitro 3 in total did not have any EKG and/or troponin changes. Admitted to rule out ACS and stress test before discharge She does not have any complaints during the examination and free of pain On examination-no apparent distress at rest Hemodynamically stable. Chest-clear to auscultate bilaterally. Heart-S1-S2 no murmur appreciated. Abdomen-benign, nontender, bowel sounds present. Extremity -trace edema bilaterally [employer]-alert, awake, oriented 3 No focal sensory or motor deficit appreciated. Labs EKG and imaging studies were reviewed Admitted with chest pain and will have stress echo tomorrow morning Agree with assessment and plan Dr. Katya Zhou Resuscitation Status VTE Prophylaxis Will order VTE Prophylaxis: Yes
[2017-08-22] MEDS: HEPARIN SOD 5000 UNIT/0.5 ML CARP SQ SCH (22:47)
[2017-08-22 23:09] VITALS: BP 126/74; PULSE 65; TEMP 36.7; O2SAT 96; Ht 147.3 cm; Wt 84.7 kg
[2017-08-22] MEDS: DOCUSATE SODIUM 100 MG CAP PO SCH (23:36)
[2017-08-22] MEDS: DESMOPRESSIN ACETATE 0.1 MG TAB PO SCH (23:37)
[2017-08-22] MEDS: TRAZODONE HCL 100 MG TAB PO SCH (23:39)
[2017-08-22] MEDS: TOPIRAMATE 25 MG TAB PO SCH (23:39)
[2017-08-22] MEDS: RANITIDINE HCL 150 MG TAB PO SCH (23:40)
[2017-08-22] MEDS: MONTELUKAST SOD 10 MG TAB PO SCH (23:58)
[2017-08-22] MEDS: SIMVASTATIN 20 MG TAB PO SCH (23:59)
[2017-08-23] VITALS (11 sets, daily range): BP systolic 97–129; BP diastolic 59–77; PULSE 56–68; TEMP 36.5–36.9; O2SAT 93–97
[2017-08-23] MEDS: HEPARIN SOD 5000 UNIT/0.5 ML CARP SQ SCH ×3 (06:17→20:38)
[2017-08-23] MEDS: LEVOTHYROXINE 25 MCG TAB PO SCH (06:35)
[2017-08-23 06:36] LABS: HEMOGLOBIN 11.4 g/dL (12.0-16.0); MEAN CELL VOLUME 87.1 fL (80-100); MEAN CORPUSCULAR HEMOGLOBIN 28.4 pg (25-34); MEAN CORPUSCULAR HGB CONC 32.6 g/dl (32-36); PLATELET COUNT 267 K/uL (130-400); RED CELL DISTRIBUTION WIDTH CV 14.7 % (11.5-14.5); WHITE BLOOD COUNT 8.27 K/uL (4.8-10.8)
[2017-08-23 07:04] LABS: HEMOGLOBIN A1C 6.1 % (4.5-5.6)
[2017-08-23 07:05] LABS: BLOOD UREA NITROGEN 14 mg/dl (7-18); CALCIUM 8.6 mg/dl (8.5-10.1); CARBON DIOXIDE 23 mmol/L (21-32); CREATININE 0.59 mg/dl (0.60-1.20); GLUCOSE 119 mg/dl (70-99); POTASSIUM 3.6 mmol/L (3.5-5.1); SODIUM 140 mmol/L (136-145)
[2017-08-23 07:10] LABS: CHOLESTEROL 158 mg/dl (0-200); LDL CHOLESTEROL CALCULATED 87 mg/dl
[2017-08-23] MEDS ORDERED: TiZANIdine 1 MG TAB PO SCH (09:00)
[2017-08-23] MEDS: INSULIN ASPART 100 UNITS/ML 3 ML PEN SC SCH ×4 (10:22→20:33)
[2017-08-23] MEDS: LORATADINE 10 MG TAB PO SCH (11:46)
[2017-08-23] MEDS: PANTOprazole SOD 40 MG TAB PO SCH (11:48)
[2017-08-23] MEDS: DULOXETINE HCL 60 MG CAP PO SCH (11:48)
[2017-08-23] MEDS: DESMOPRESSIN ACETATE 0.1 MG TAB PO SCH ×2 (11:49→20:44)
[2017-08-23] MEDS: ASPIRIN 81 MG ECTAB PO SCH (11:49)
[2017-08-23] MEDS: RANITIDINE HCL 150 MG TAB PO SCH ×2 (11:49→20:45)
[2017-08-23] MEDS: DOCUSATE SODIUM 100 MG CAP PO SCH ×2 (11:50→20:44)
[2017-08-23] MEDS ORDERED: PERFLUTREN LIPID MICROSPHERE (DEFINITY) IV ONE (13:47)
[2017-08-23] MEDS: DULOXETINE HCL 20 MG CAP PO SCH (13:47)
--- NOTE | 2017-08-23 14:16 | EXERCISE STRESS ECHO ---
*NOTICE TO RECEIVING REPUBLICAN AGENCY This information is strictly Confidential and protected under [place] law. [place] law prohibits you from making any further disclosure of this information unless further disclosure is expressly permitted by the written consent of the person to whom it pertains or is authorized by law. A general authorization for the release of medical or other information is not sufficient for this purpose. Hospital accepts no responsibility if the information is made available to any other person, INCLUDING THE PATIENT. Interpretation Summary * Name: DALILA GOLD Study Date: 08/23/2017 08:09 AM BP: 97/55 mmHg * Patient Location: [facility]\S\N276\S\1 HR: 61 * : 1970 (M/d/yyyy) Gender: Female Height: 58 in * Age: 47 yrs Ethnicity: [place] Weight: 185 lb * Ordering Physician: Maria L Bryan * Referring Physician: No Doctor, Assigned * Performed By: Gwendolyn Coley RDCS * * Reason For Study: CHEST PAIN * BSA: 1.8 m2 * -- Conclusions -- * This is an equivocal exercise stress echocardiogram as the patient developed symptoms of chest pain with exercise but both the EKG and echocardiogram failed to show evidence of ischemia. Procedure Details * ECHOEX, CPT #27586 * A contrast injection of Definity was performed to improve assessment of LV function. * Contrast was injected into an intravenous site in the left arm. * One vial of Definity ultrasound contrast was diluted in normal saline to a total volume of 10 ml. A total of '4' ml of solution was administered during imaging. * Lot # [id number] of Definity utilized for procedure. * Expiration date SEP 01. * The attending nurse who injected the contrast agent was ELIER NARAYANAN RN. Left Ventricle * The left ventricle is normal in size. * There is normal left ventricular wall thickness. * Ejection Fraction = 65-70%. * Left ventricular systolic function is normal. * The left ventricular wall motion is normal at rest. Right Ventricle * The right ventricle is normal size. * The right ventricular systolic function is normal. Atria * The left atrial size is normal. * Right atrial size is normal. * The interatrial septum is intact with no evidence for an atrial septal defect. Mitral Valve * The mitral valve is normal in structure and function. Tricuspid Valve * The tricuspid valve is normal in structure and function. Aortic Valve * The aortic valve is normal in structure and function. Pulmonic Valve * The pulmonic valve is not well visualized. Great Vessels * The aortic root and proximal ascending aorta are normal sized. Pericardium * There is no pericardial effusion. Stress Parameters * Normal baseline electrocardiogram. * Stress ECG: No ST changes. No arrhythmias. * The stress portion of this study was personally supervised by the undersigned interpreting physician. * Rest heart rate was '61' BPM. * Rest blood pressure was '97/55' * Maximum heart rate achieved was 146 bpm. * Maximum heart rate was 84 % of maximum age-predicted heart rate. * Maximum blood pressure was '140/61' * Total exercise time was '7:16' * Maximum exercise MET level achieved was '8.9' METS * Maximum treadmill speed was '3.40' miles per hour. * Maximum treadmill elevation was '14.00'% grade. * Exercise was terminated due to 'CHEST PAIN' MMode 2D Measurements and Calculations IVSd 1.1 cm IVSs 1.8 cm LVIDd 4.2 cm LVIDs 2.5 cm LVPWd 1.4 cm LVPWs 1.9 cm IVS/LVPW 0.78 FS 39.7 % EDV(Teich) 77.0 ml ESV(Teich) 22.6 ml EF(Teich) 70.6 % EDV(cubed) 72.2 ml ESV(cubed) 15.9 ml EF(cubed) 78.0 % % IVS thick 63.5 % % LVPW thick 34.6 % LV mass(C)d 188.5 grams LV mass(C)dI 107.0 grams/m\S\2 LV mass(C)s 187.3 grams LV mass(C)sI 106.3 grams/m\S\2 SV(Teich) 54.4 ml SI(Teich) 30.9 ml/m\S\2 SV(cubed) 56.3 ml SI(cubed) 32.0 ml/m\S\2 Ao root diam 3.2 cm Ao root area 8.3 cm\S\2 LA dimension 3.4 cm LA/Ao 1.0 LVAd ap4 34.5 cm\S\2 LVLd ap4 9.0 cm EDV(MOD-sp4) 106.6 ml EDV(sp4-el) 112.3 ml LVAs ap4 17.0 cm\S\2 LVLs ap4 7.1 cm ESV(MOD-sp4) 35.1 ml ESV(sp4-el) 34.7 ml EF(MOD-sp4) 67.1 % EF(sp4-el) 69.1 % LVAd ap2 31.8 cm\S\2 LVLd ap2 8.6 cm EDV(MOD-sp2) 93.8 ml EDV(sp2-el) 99.9 ml LVAs ap2 15.0 cm\S\2 LVLs ap2 6.3 cm ESV(MOD-sp2) 30.3 ml ESV(sp2-el) 30.2 ml EF(MOD-sp2) 67.7 % EF(sp2-el) 69.8 % LVLd %diff -4.76 % EDV(MOD-bp) 101.1 ml LVLs %diff -12.37 % ESV(MOD-bp) 34.3 ml EF(MOD-bp) 66.1 % SV(MOD-sp4) 71.5 ml SI(MOD-sp4) 40.6 ml/m\S\2 SV(MOD-sp2) 63.5 ml SI(MOD-sp2) 36.0 ml/m\S\2 SV(MOD-bp) 66.8 ml SI(MOD-bp) 37.9 ml/m\S\2 SV(sp4-el) 77.6 ml SI(sp4-el) 44.0 ml/m\S\2 SV(sp2-el) 69.7 ml SI(sp2-el) 39.5 ml/m\S\2 Doppler Measurements and Calculations MV E max kal 74.7 cm/sec MV A max kal 44.2 cm/sec MV E/A 1.7 MV dec time 0.33 sec Ao V2 max 156.7 cm/sec Ao max PG 9.8 mmHg Ao max PG (full) 5.3 mmHg LV V1 max PG 4.6 mmHg LV V1 max 106.7 cm/sec TR max kal 197.7 cm/sec
--- NOTE | 2017-08-23 14:18 | Progress Note ---
Subjective Date of Service: Aug 23, 2017. Subjective Pt evaluation today including: conversation w/ patient, physical exam, lab review, review of studies, review of inpatient medication list Saw/examined the patient in room 276 She had a stress test earlier today Now c/o chest pain, substernal, worse with palpation States the pain is nothing like her reflux pain She is feeling better after SL nitro Problem List Medical Problems: (1) Anemia Status: Acute (2) Chest tightness Status: Acute (3) Dehydration Status: Acute (4) Diabetes insipidus Status: Acute (5) GERD (gastroesophageal reflux disease) Status: Acute (6) Heart palpitations Status: Acute (7) Left lower quadrant abdominal pain of unknown etiology Status: Acute (8) Pulmonary emboli Status: Acute (9) Syncope Status: Acute Social History Problems: (1) Fibromyalgia Status: Acute (2) Peripheral edema Status: Acute (3) Sepsis Status: Acute Review of Systems Constitutional: No fever, No chills Respiratory: No cough, No sputum, No shortness of breath Cardiac: + see HPI, + chest pain, No orthopnea, No edema, No palpitations Abdomen: No pain, No nausea, No vomiting, No diarrhea Medications Current Inpatient Medications Medications (Trade) Dose Ordered Sig/Tyler Route Start Time Stop Time Status Last Admin Dose Admin Ioversol (Optiray 320) 100 ml UD PRN IV 08/22/17 17:15 08/26/17 17:14 Heparin Sodium (Porcine) (Heparin Sq 5000 Unit/0.5ml) 5,000 unit Q8 SQ 08/22/17 22:00 09/21/17 21:59 08/23/17 13:55 5,000 UNIT Acetaminophen (Tylenol Tab) 650 mg Q4H PRN PO 08/22/17 21:15 09/21/17 21:14 Al Hydrox/Mg Hydrox/Simethicone (Maalox Max Susp) 15 ml Q4H PRN PO 08/22/17 21:15 09/21/17 21:14 Nitroglycerin (Nitrostat Tab) 0.4 mg UD PRN SL 08/22/17 21:15 09/21/17 21:14 08/23/17 13:54 0.4 MG Aspirin (Ecotrin Tab) 81 mg QAM PO 08/23/17 09:00 09/22/17 08:59 08/23/17 11:49 81 MG Miscellaneous (Iv Fluids Completed) 1 ea PRN PRN N/A 08/22/17 21:15 08/22/18 21:14 Desmopressin Acetate (Desmopressin Acetate) 0.1 mg BID PO 08/23/17 09:00 09/22/17 08:59 08/23/17 11:49 0.1 MG Docusate Sodium (coLACE CAP) 100 mg BID PO 08/23/17 09:00 09/22/17 08:59 08/23/17 11:50 100 MG Duloxetine HCl (Cymbalta Cap) 60 mg DAILY PO 08/23/17 09:00 09/22/17 08:59 08/23/17 11:48 60 MG Levothyroxine Sodium (Synthroid Tab) 25 mcg DAILYBB PO 08/23/17 06:30 09/22/17 06:59 08/23/17 06:35 25 MCG Loratadine (Claritin Tab) 10 mg DAILY PO 08/23/17 09:00 09/22/17 08:59 08/23/17 11:46 10 MG Meclizine HCl (Antivert Tab) 25 mg TID PRN PO 08/22/17 21:30 09/21/17 21:29 Montelukast Sodium (Singulair Tab) 10 mg HS PO 08/23/17 21:00 09/22/17 20:59 08/22/17 23:58 10 MG Ranitidine HCl (zANTac TAB) 150 mg BID PO 08/23/17 09:00 09/22/17 08:59 08/23/17 11:49 150 MG Simvastatin (Zocor Tab) 20 mg HS PO 08/23/17 21:00 09/22/17 20:59 08/22/17 23:59 20 MG Topiramate (Topamax Tab) 75 mg HS PO 08/23/17 21:00 09/22/17 20:59 08/22/17 23:39 75 MG Trazodone HCl (Desyrel Tab) 100 mg HS PO 08/23/17 21:00 09/22/17 20:59 08/22/17 23:39 100 MG Albuterol (Ventolin Hfa Inhaler) 2 puffs Q4 PRN INH 08/22/17 21:30 09/21/17 21:29 Pantoprazole Sodium (Protonix Tab) 40 mg QAM PO 08/23/17 09:00 09/22/17 08:59 08/23/17 11:48 40 MG Insulin Aspart (novoLOG ASPART) SLIDING SCALE If C... ACHS SC 08/23/17 06:30 09/22/17 06:59 08/23/17 11:56 2 UNITS Glucose (Glucose 40% Gel) 15-30 GRAMS 15 GRAMS... UD PRN PO 08/22/17 21:30 09/21/17 21:29 Glucose (Glucose Chew Tab) 4-8 Tablets 4 Tabl... UD PRN PO 08/22/17 21:30 09/21/17 21:29 Dextrose (Dextrose 50% 50ML Syringe) 25-50ML OF 50% DW IV FOR... UD PRN IV 08/22/17 21:30 09/21/17 21:29 Glucagon (Glucagon Inj) 1 mg UD PRN SQ 08/22/17 21:30 09/21/17 21:29 Tizanidine HCl (Zanaflex Tab) 2 mg TID PO 08/23/17 21:00 09/22/17 20:59 Duloxetine HCl (Cymbalta Cap) 20 mg DAILY PO 08/23/17 12:00 09/22/17 11:59 08/23/17 13:47 20 MG Objective Vital Signs Date Time Temp Pulse Resp B/P (MAP) Pulse Ox O2 Delivery O2 Flow Rate FiO2 08/23/17 13:31 36.5 62 16 112/70 (84) 97 Room Air 08/23/17 12:00 Room Air 08/23/17 12:00 36.8 59 16 117/76 (90) 97 Room Air 08/23/17 10:15 36.9 68 18 97/59 (72) 95 Room Air 08/23/17 08:00 97 Room Air 08/23/17 06:52 36.7 61 18 103/67 (79) 97 Room Air 08/23/17 04:00 Room Air 08/23/17 03:28 36.5 62 18 97/61 (73) 94 Room Air 08/23/17 00:00 Room Air 08/22/17 23:09 36.7 65 20 126/74 96 Room Air 08/22/17 21:31 62 16 127/80 98 Room Air 08/22/17 19:30 62 16 109/82 98 Room Air 08/22/17 18:40 55 20 141/86 98 Room Air 08/22/17 17:19 75 17 116/67 93 Room Air 08/22/17 16:50 96 Room Air 08/22/17 16:40 96 Room Air 08/22/17 16:40 66 12 130/78 96 Room Air Physical Exam General Appearance: no apparent distress Respiratory/Chest: lungs clear, normal breath sounds, no respiratory distress, no accessory muscle use, + pertinent finding (+chest wall tenderness) Cardiovascular: regular rate, rhythm, no edema, no murmur Abdomen: normal bowel sounds, non tender, soft Extremities: normal inspection, no pedal edema Neurologic/Psychiatric: no motor/sensory deficits, alert, normal mood/affect Skin: normal color Lymphatic: no adenopathy Laboratory Results Last 24 Hours Test 08/22/17 16:45 08/22/17 18:41 08/23/17 06:18 08/23/17 07:45 White Blood Count 8.03 K/uL 8.27 K/uL Red Blood Count 4.10 M/uL 4.02 M/uL Hemoglobin 11.8 g/dL 11.4 g/dL Hematocrit 35.4 % 35.0 % Mean Corpuscular Volume 86.3 fL 87.1 fL Mean Corpuscular Hemoglobin 28.8 pg 28.4 pg Mean Corpuscular Hemoglobin Concent 33.3 g/dl 32.6 g/dl Platelet Count 284 K/uL 267 K/uL Mean Platelet Volume 10.2 fL 10.0 fL Neutrophils (%) (Auto) 59.5 % Lymphocytes (%) (Auto) 30.0 % Monocytes (%) (Auto) 8.7 % Eosinophils (%) (Auto) 1.4 % Basophils (%) (Auto) 0.2 % Neutrophils # (Auto) 4.77 K/uL Lymphocytes # (Auto) 2.41 K/uL Monocytes # (Auto) 0.70 K/uL Eosinophils # (Auto) 0.11 K/uL Basophils # (Auto) 0.02 K/uL RDW Standard Deviation 47.0 fL 47.0 fL RDW Coefficient of Variation 14.9 % 14.7 % Immature Granulocyte % (Auto) 0.2 % Immature Granulocyte # (Auto) 0.02 K/uL Prothrombin Time 9.9 SECONDS Prothromb Time International Ratio 0.9 Activated Partial Thromboplast Time 26.5 SECONDS Partial Thromboplastin Ratio 1.0 Sodium Level 139 mmol/L 140 mmol/L Potassium Level 3.5 mmol/L 3.6 mmol/L Chloride Level 105 mmol/L 111 mmol/L Carbon Dioxide Level 22 mmol/L 23 mmol/L Anion Gap 12.0 mmol/L 6.0 mmol/L Blood Urea Nitrogen 14 mg/dl 14 mg/dl Creatinine 0.66 mg/dl 0.59 mg/dl Est Creatinine Clear Calc Drug Dose 95.7 ml/min 107.1 ml/min Estimated GFR () 121.1 125.6 Estimated GFR (Non- 104.5 108.4 BUN/Creatinine Ratio 21.1 24.5 Random Glucose 91 mg/dl 119 mg/dl Calcium Level 8.9 mg/dl 8.6 mg/dl Total Bilirubin 0.3 mg/dl Direct Bilirubin < 0.1 mg/dl Aspartate Amino Transf (AST/SGOT) 12 U/L Alanine Aminotransferase (ALT/SGPT) 20 U/L Alkaline Phosphatase 80 U/L Troponin I < 0.015 ng/ml < 0.015 ng/ml < 0.015 ng/ml Total Protein 7.0 gm/dl Albumin 3.9 gm/dl Lipase 186 U/L Estimated Average Glucose 128 mg/dl Hemoglobin A1c 6.1 % Triglycerides Level 75 mg/dl Cholesterol Level 158 mg/dl HDL Cholesterol 56 mg/dl LDL Cholesterol, Calculated 87 mg/dl VLDL Cholesterol, Calculated 15 mg/dl Cholesterol/HDL Ratio 2.8 Bedside Glucose 113 mg/dl Test 08/23/17 10:47 08/23/17 11:24 Troponin I < 0.015 ng/ml Bedside Glucose 92 mg/dl Assessment and Plan This is a 47 year old female with a PMH of pre-diabetes, hyperlipidemia, fibromyalgia, depression/anxiety, hypothyroidism, diabetes insipidus, hx. of PE in January of 2016; no longer on anticoagulation - presents with substernal chest pain Chest Pain r/o ACS - risk factors: pre-diabetes, obesity, hyperlipidemia, family history - stress test performed on 08/23 - equivocal testing - cardiac enzymes negative x3, EKG with no acute changes noted - cardiology consulted; will likely need cardiac cath - patient did have worsening pain with palpation; which would point away from a cardiac origin of the pain - wait for cardiac cath; for now, continue aspirin, statin; may need to up- titrate the Zocor dose - resting echo pending Hx. 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
[2017-08-23] MEDS ORDERED: DC ALL ANTICOAGULANTS SCH (14:45)
--- NOTE | 2017-08-23 14:46 | Cardiology Consultation ---
Cardiology Consultation Date of Service Aug 23, 2017. Cardiology Consultation Indication: Consultation for chest pain and an abnormal stress test History: This is a 47-year-old female with history of diabetes and GERD who was admitted to the hospital with chest pain. Her EKG showed no acute changes. The cardiac markers were negative and she underwent an exercise stress test this morning. That study was equivocal or positive. During exercise we were able to reproduce her symptoms of chest pain which then resolved when she rested in recovery. There were no EKG changes or echocardiographic changes however, that would suggest ischemia. The patient does have risk factors for coronary artery disease and based on the above we would recommend proceeding to a cardiac catheterization. Allergies: To contrast dye, cephalosporins, hydrochlorothiazide, loracarbef, naproxen, penicillin, sulfa antibiotics, torsemide Reported Home Medications Medications Dose Route/Sig Max Daily Dose Days Date Category Premarin (Estrogens, Conjugated) 14 Appln/30 Gm Cr 1 Appln EXT 2XWK 08/22/17 Reported Cymbalta (Duloxetine Hcl) 60 Mg Cap 80 Mg PO DAILY 90 08/22/17 Reported Colace (Docusate Sodium) 100 Mg Cap 1 Cap PO BID 15 08/22/17 Reported Proair Respiclick (Albuterol Sulfate) 108 Mcg/Act Aer 2 Puffs PO Q4 PRN 08/22/17 Reported Topamax (Topiramate) 25 Mg Tab 75 Mg PO HS 08/22/17 Reported Claritin (Loratadine) 10 Mg Tab 10 Mg PO DAILY 08/22/17 Reported Zanaflex (Tizanidine HCl) 2 Mg Cap 2 Mg PO TID 08/22/17 Reported Meclizine Hcl 25 Mg Tab 25 Mg PO TID PRN 08/22/17 Reported Trazodone (Trazodone HCl) 100 Mg Tab 100 Mg PO HS 11/01/16 Reported Prilosec (Omeprazole) 40 Mg Cap 40 Mg PO BID 11/01/16 Reported Glucophage Er (Metformin HCl) 500 Mg Tab 500 Mg PO QPM 08/05/16 Reported Singulair (Montelukast Sodium) 10 Mg Tab 10 Mg PO HS 02/11/16 Reported Desmopressin Acetate 0.1 Mg Tab 0.1 Mg PO BID 10/20/15 Reported Simvastatin 20 Mg Tab 20 Mg PO HS 10/20/15 Reported Ranitidine HCl 150 Mg Tab 150 Mg PO BID 10/20/15 Reported Levothyroxine Sodium 25 Mcg Tab 25 Mcg PO QAM 02/11/15 Reported Past medical history: The patient is a diabetic with a history of GERD. She also has fibromyalgia and irritable bowel syndrome. Social history: Patient is a non-smoker Family medical history: Is significant for diabetes General: The patient denies weight change, night sweats, fever, chills. Head: The patient denies headache and prior head trauma. Cardiovascular: The patient denies chest pain or chest discomfort, dyspnea on exertion, palpitations, PND, orthopnea, edema, spontaneous shortness of breath, syncope and near syncope. Pulmonary: The patient denies cough, wheeze, pleurisy, hemoptysis, sputum, and excessive snoring. Gastrointestinal: The patient denies nausea, vomiting, diarrhea, constipation, bloating, hematemesis, hematochezia, and abdominal pain. Skin: The patient denies diaphoresis and rash. Musculoskeletal: The patient denies joint pain, joint swelling, myalgia, back pain, neck pain and prior injuries. Neurological: The patient denies prior stroke and seizures Vital Signs Past 12 Hours Date Time Temp Pulse Resp B/P (MAP) Pulse Ox O2 Delivery O2 Flow Rate FiO2 08/23/17 13:31 36.5 62 16 112/70 (84) 97 Room Air 08/23/17 12:00 Room Air 08/23/17 12:00 36.8 59 16 117/76 (90) 97 Room Air 08/23/17 10:15 36.9 68 18 97/59 (72) 95 Room Air 08/23/17 08:00 97 Room Air 08/23/17 06:52 36.7 61 18 103/67 (79) 97 Room Air 08/23/17 04:00 Room Air 08/23/17 03:28 36.5 62 18 97/61 (73) 94 Room Air General Appearance: Alert and Oriented x3. NAD. Head: Normocephalic Atraumatic. Eyes: PERRLA, EOMI, conjunctiva and sclera clear Neck: Supple. No carotid bruits noted. No JVD. No HJD. Respiratory: Breath sounds clear to auscultation bilaterally. No w/r/r. Cardiovascular: Reg rate and rhythm. S1 and S2 noted. No murmurs, rubs, gallops. PMI non displace. Abdomen: Normal bowel sounds, soft nontender. no abdominal bruits. Extremities: No edema, no clubbing or cyanosis. distal pulses 2/4 bilaterally. Neuro: No focal deficits. Psychiatric: Normal affect. Last 24 Hours Test 08/22/17 16:45 08/22/17 18:41 08/23/17 06:18 08/23/17 07:45 White Blood Count 8.03 K/uL 8.27 K/uL Red Blood Count 4.10 M/uL 4.02 M/uL Hemoglobin 11.8 g/dL 11.4 g/dL Hematocrit 35.4 % 35.0 % Mean Corpuscular Volume 86.3 fL 87.1 fL Mean Corpuscular Hemoglobin 28.8 pg 28.4 pg Mean Corpuscular Hemoglobin Concent 33.3 g/dl 32.6 g/dl Platelet Count 284 K/uL 267 K/uL Mean Platelet Volume 10.2 fL 10.0 fL Neutrophils (%) (Auto) 59.5 % Lymphocytes (%) (Auto) 30.0 % Monocytes (%) (Auto) 8.7 % Eosinophils (%) (Auto) 1.4 % Basophils (%) (Auto) 0.2 % Neutrophils # (Auto) 4.77 K/uL Lymphocytes # (Auto) 2.41 K/uL Monocytes # (Auto) 0.70 K/uL Eosinophils # (Auto) 0.11 K/uL Basophils # (Auto) 0.02 K/uL RDW Standard Deviation 47.0 fL 47.0 fL RDW Coefficient of Variation 14.9 % 14.7 % Immature Granulocyte % (Auto) 0.2 % Immature Granulocyte # (Auto) 0.02 K/uL Prothrombin Time 9.9 SECONDS Prothromb Time International Ratio 0.9 Activated Partial Thromboplast Time 26.5 SECONDS Partial Thromboplastin Ratio 1.0 Sodium Level 139 mmol/L 140 mmol/L Potassium Level 3.5 mmol/L 3.6 mmol/L Chloride Level 105 mmol/L 111 mmol/L Carbon Dioxide Level 22 mmol/L 23 mmol/L Anion Gap 12.0 mmol/L 6.0 mmol/L Blood Urea Nitrogen 14 mg/dl 14 mg/dl Creatinine 0.66 mg/dl 0.59 mg/dl Est Creatinine Clear Calc Drug Dose 95.7 ml/min 107.1 ml/min Estimated GFR () 121.1 125.6 Estimated GFR (Non- 104.5 108.4 BUN/Creatinine Ratio 21.1 24.5 Random Glucose 91 mg/dl 119 mg/dl Calcium Level 8.9 mg/dl 8.6 mg/dl Total Bilirubin 0.3 mg/dl Direct Bilirubin < 0.1 mg/dl Aspartate Amino Transf (AST/SGOT) 12 U/L Alanine Aminotransferase (ALT/SGPT) 20 U/L Alkaline Phosphatase 80 U/L Troponin I < 0.015 ng/ml < 0.015 ng/ml < 0.015 ng/ml Total Protein 7.0 gm/dl Albumin 3.9 gm/dl Lipase 186 U/L Estimated Average Glucose 128 mg/dl Hemoglobin A1c 6.1 % Triglycerides Level 75 mg/dl Cholesterol Level 158 mg/dl HDL Cholesterol 56 mg/dl LDL Cholesterol, Calculated 87 mg/dl VLDL Cholesterol, Calculated 15 mg/dl Cholesterol/HDL Ratio 2.8 Bedside Glucose 113 mg/dl Test 08/23/17 10:47 08/23/17 11:24 Troponin I < 0.015 ng/ml Bedside Glucose 92 mg/dl Impression/recommendations: This is a 47-year-old female who presents with chest pain and has risk factors for coronary artery disease diabetes. We were able to reproduce her symptoms while exercising on a treadmill. The EKG and stress echocardiogram portions of the study were negative. With the patient reproducing her symptoms on the treadmill resolving in recovery at rest is of concern. I would recommend that we proceed with a cardiac catheterization. I have explained the risk, benefit and intent of the procedure to her including the potential for catheter based intervention such as balloon angioplasty or intracoronary stents. The patient is willing to proceed. She has a contrast allergy and she will need dye prep before the procedure.
[2017-08-23] MEDS ORDERED: FAMOTIDINE IV INJ 20 MG in DEXTROSE 5% 100ML 100 ML IV ONE (15:00)
[2017-08-23] MEDS ORDERED: DC ALL ANTICOAGULANTS ONE (15:00)
[2017-08-23] MEDS ORDERED: METHYLPREDNISOLONE IV 40 MG in SYRINGE 0 ML IV ONE (18:00)
[2017-08-23] MEDS: TRAZODONE HCL 100 MG TAB PO SCH (20:44)
[2017-08-23] MEDS: TOPIRAMATE 25 MG TAB PO SCH (20:44)
[2017-08-23] MEDS: MONTELUKAST SOD 10 MG TAB PO SCH (20:44)
[2017-08-23] MEDS: SIMVASTATIN 20 MG TAB PO SCH (20:45)
[2017-08-24] VITALS (12 sets, daily range): BP systolic 96–126; BP diastolic 60–76; PULSE 48–66; TEMP 36.4–37; O2SAT 91–97
[2017-08-24] MEDS: METHYLPREDNISOLONE IV 40 MG in SYRINGE 0 ML IV SCH ×2 (02:13→09:14)
[2017-08-24] MEDS: LEVOTHYROXINE 25 MCG TAB PO SCH (05:16)
[2017-08-24] MEDS ORDERED: FAMOTIDINE IV INJ 20 MG in SYRINGE 3 ML IV SCH (06:00)
[2017-08-24] MEDS ORDERED: CIMETIDINE 300 MG TAB PO SCH (06:00)
[2017-08-24] MEDS ORDERED: DiphenhydrAMINE HCL 50 MG/ML VIAL IV SCH (06:00)
[2017-08-24] MEDS: INSULIN ASPART 100 UNITS/ML 3 ML PEN SC SCH (06:30)
[2017-08-24] MEDS ORDERED: NURSING VERBAL MED ORDER ONE (07:15)
[2017-08-24 07:38] LABS: HEMATOCRIT 35.2 % (37-47); HEMOGLOBIN 11.8 g/dL (12.0-16.0); MEAN CELL VOLUME 86.1 fL (80-100); MEAN CORPUSCULAR HEMOGLOBIN 28.9 pg (25-34); MEAN CORPUSCULAR HGB CONC 33.5 g/dl (32-36); PLATELET COUNT 263 K/uL (130-400); RED CELL DISTRIBUTION WIDTH CV 14.8 % (11.5-14.5); RED CELL DISTRIBUTION WIDTH SD 46.8 fL (36.4-46.3); WHITE BLOOD COUNT 7.47 K/uL (4.8-10.8)
[2017-08-24 08:02] LABS: CALCIUM 8.6 mg/dl (8.5-10.1); CREATININE 0.58 mg/dl (0.60-1.20); POTASSIUM 3.4 mmol/L (3.5-5.1)
[2017-08-24] MEDS: DOCUSATE SODIUM 100 MG CAP PO SCH (08:27)
[2017-08-24] MEDS: LORATADINE 10 MG TAB PO SCH (08:28)
[2017-08-24] MEDS: DULOXETINE HCL 60 MG CAP PO SCH (08:28)
[2017-08-24] MEDS: DULOXETINE HCL 20 MG CAP PO SCH (08:28)
[2017-08-24] MEDS: ASPIRIN 81 MG ECTAB PO SCH (08:28)
[2017-08-24] MEDS: PANTOprazole SOD 40 MG TAB PO SCH (08:28)
[2017-08-24] MEDS: DESMOPRESSIN ACETATE 0.1 MG TAB PO SCH (08:29)
[2017-08-24] MEDS: RANITIDINE HCL 150 MG TAB PO SCH (08:31)
[2017-08-24] MEDS ORDERED: RANITIDINE HCL 25 MG/ML INJ ONE (08:54)
[2017-08-24] MEDS ORDERED: HEPARIN SOD (PORCINE) 1000 UNIT/ML 10 ML VIAL ONE (08:58)
[2017-08-24] MEDS ORDERED: FENTANYL CITRATE INJ 50 MCG/1 ML 2 ML VIAL ONE (08:58)
[2017-08-24] MEDS ORDERED: MIDAZOLAM HCL 1 MG/ML 2ML VIAL ONE (08:58)
[2017-08-24] MEDS ORDERED: NiCARDipine HCL INJ 2.5 MG/ML 10 ML AMP ONE (08:58)
[2017-08-24] MEDS ORDERED: LIDOCAINE HCL 1% 20 ML VIAL ONE (08:59)
[2017-08-24] MEDS ORDERED: NITROGLYCERIN/D5W 100MCG/ML 20ML SYR ONE (08:59)
[2017-08-24] MEDS ORDERED: SODIUM CHLORIDE 0.9% 1000ML 250 ML IV PRN (09:26)
--- NOTE | 2017-08-24 09:29 | Post Sedation Assessment ---
Post Sedation Assessment General Date of Sedation Aug 24, 2017. Vital Signs: Vital Signs Past 12 Hours Date Time Temp Pulse Resp B/P (MAP) Pulse Ox O2 Delivery O2 Flow Rate FiO2 08/24/17 09:23 78 16 137/84 (101) 96 Mask 3 08/24/17 06:53 36.6 66 18 121/76 (91) 97 Room Air 08/24/17 04:00 Room Air 08/24/17 03:26 36.4 51 18 99/62 (74) 97 Room Air 08/24/17 00:00 Room Air 08/23/17 23:07 36.6 56 18 115/71 (86) 93 Room Air Post Procedure Recovery Score Activity: (2) Moves 4 extremities * Respiration: (2) Deep breath/cough Circulation: (2) +/-20% PreAnes Value Consciousness: (2) Fully Awake Oxygen Saturation: (2) > 92% On Room Air Post Anesthesia Score: 9 Discharge Sedation Level of Care: Fast Track Phase II Post Sedation Plan On clinical assessment, the patient appears to have tolerated the sedation without complications. Patient is recovering as anticipated. Patient will continue to be monitored by nursing and may be discharged when sedation discharge criteria are met per below protocol. Upon Completions of procedure and additional 15 minutes continue every 5 minute vital signs and the P.A.R. score; then discharge to a Phase I or Fast Track to Phase II per the following guidelines: * Discharge Patient to appropriate Phase II area if PAR is 8 or greater or return to pre- procedure baseline. The post - procedure orders will be as directed. * If PAR score is less than 8 or not return to pre-procedure baseline then patient will follow Phase I monitoring till PAR is reached for Phase II. The Phase I may be done in procedure room or may call to secure a Phase I area. * If naloxone or flumazenil are used for reversal, hold in Phase I for an additional 60 -120 minutes before discharge to Phase II. Please call the Sedation Physician to re-evaluate and complete post-note for discharge to Phase II area. Do NOT discharge from procedure sedation or Phase 1 until post- sedation evaluation note is complete by procedure /sedation MD Sedation Discharge Instructions to be given to the patient at discharge to home.
--- NOTE | 2017-08-24 09:29 | Pre Sedation Assessment ---
Pre Sedation Assessment General Date of Sedation: Aug 24, 2017. Vital Signs Past 12 Hours Date Time Temp Pulse Resp B/P (MAP) Pulse Ox O2 Delivery O2 Flow Rate FiO2 08/24/17 09:23 78 16 137/84 (101) 96 Mask 3 08/24/17 06:53 36.6 66 18 121/76 (91) 97 Room Air 08/24/17 04:00 Room Air 08/24/17 03:26 36.4 51 18 99/62 (74) 97 Room Air 08/24/17 00:00 Room Air 08/23/17 23:07 36.6 56 18 115/71 (86) 93 Room Air Review Cardiovascular: regular rate, rhythm, no murmur Lungs: lungs clear, normal breath sounds Pre-Sedation Airway Assessment Smoking Status: Never Smoker Hx of Sleep Apnea: No Hx of difficult intubation: No Short Thick Neck: Yes Thyro-mental Distance: < or =3 Finger Breadths Oral Cavity: WNL Mallampati Classification: Class II ASA Classification: Class II NPO Status Date of Last Intake of Fluids: Aug 23, 2017 Time of Last Intake of Fluids: 230 Date of Last Intake of Solids: Aug 23, 2017 Time of Last Intake of Solids: 230 Procedure Planning Contraindications for Sedation: None Current Medications Reviewed: Yes Notes The planned sedation has been discussed with the patient. Informed Consent was obtained. I have identified the patient, determined the appropriateness of sedation and have assessed the patient immediately prior to the procedure. All medicine(s) and interventions are by my order.
[2017-08-24] MEDS ORDERED: ATROPINE SULFATE 0.1 MG/ML 5ML SYR IV PRN (09:30)
[2017-08-24] MEDS ORDERED: ONDANSETRON INJ 2 MG/ML 2 ML VIAL IV PRN (09:30)
[2017-08-24] MEDS ORDERED: ACETAMINOPHEN 325 MG TAB PO PRN (09:30)
--- NOTE | 2017-08-24 09:35 | Cardiac Catheterization ---
Procedure Note Procedure Date Aug 24, 2017. Pre-Procedure Diagnosis Angina, Positive Stress Test AUC Score 7 Post-Procedure Diagnosis Normal Coronary Arteries Procedure(s) Performed Coronary Angiography [employer] Technician Dr. Olson Palliative Senior Np(s) None Estimated Blood Loss None Medication(s) Versed, Lidocaine 1%, Diphenhydramine Summary of Findings Normal coronaries Hemodynamics Rest Ao: 118/66 Final Ao: 124/74 LV: Valve not crossed Recommendations None Specimens None Radiation Exposure (mGy) 223 Contrast (mls) 57 Procedural Complication(s) None Disposition PCU ACC Data Cardiac Status Clinical evaluation leading to the procedure CAD Presntation: Positive Stress Test Anginal Classification: CCS II Heart Failure: No Cardiogenic Shock w/in 24Hrs: No Cardiac Arrest w/in 24Hrs: No Imaging studies past 6 months: Yes Stress studies past 6 months: Yes Stress Echocardiogram: Yes - Indeterminant Coronary Anatomy Dominant: Right Left Main (% Stenosis): Normal LAD (% Stenosis): Normal Circumflex (% Stenosis): Normal RCA (% Stenosis): Normal Diagnostic Physician's Name: Haja Olson, DO Status: Urgent Closure Device Percutaneous Entry Location: Femoral Closure Device: Mynx Recommendations: None
--- NOTE | 2017-08-24 09:40 | Procedure Note ---
Cardiac Cath Report Procedure: 1. Coronary angiography History: This is a 47-year-old diabetic female who presented with chest pain. She had an equivocal exercise stress echocardiogram where her chest pain was reproduced with exercise but her EKG and stress echocardiogram were negative. Procedure summary: The patient was brought to the cardiac catheterization lab. After informed consent was obtained patient was prepped and draped in usual manner for right transfemoral approach. Preformed 5 [place]olan diagnostic catheters were utilized for the coronary angiograms. Following the procedure a minx device was utilized to close the arterial site. She was then returned to her room in stable condition. Coronary angiography Selective injections of the left coronary artery revealed the left main trunk to be widely patent and within normal limits. The LAD extends to the apex of the heart. The LAD system is smooth appearance widely patent and within normal limits. The left circumflex artery is smooth in appearance widely patent and within normal limits. Right coronary artery is dominant. The right coronary artery is smooth appearance widely patent and within normal limits. Summary: Normal coronary arteries Recommendations: The patient may have follow-up with her primary care physician for further medical care and guidance.
[2017-08-24] MEDS ORDERED: POTASSIUM CHLORIDE 10 MEQ TABCR PO STA (10:22)
[2017-08-24] MEDS ORDERED: SODIUM CHLORIDE 0.9% 1000ML 1,000 ML IV SCH ×2 (10:30)
--- NOTE | 2017-08-24 11:33 | Progress Note ---
Subjective Date of Service: Aug 24, 2017. Subjective Pt evaluation today including: conversation w/ patient, physical exam, lab review, review of studies, conversation w/ computing consultant, review of inpatient medication list Saw/examined the patient in room 229 She's doing well, no chest pain at this time Had her cardiac catheterization this morning, normal coronary arteries noted No other issues at this time Problem List Medical Problems: (1) Anemia Status: Acute (2) Chest tightness Status: Acute (3) Dehydration Status: Acute (4) Diabetes insipidus Status: Acute (5) GERD (gastroesophageal reflux disease) Status: Acute (6) Heart palpitations Status: Acute (7) Left lower quadrant abdominal pain of unknown etiology Status: Acute (8) Pulmonary emboli Status: Acute (9) Syncope Status: Acute Social History Problems: (1) Fibromyalgia Status: Acute (2) Peripheral edema Status: Acute (3) Sepsis Status: Acute Review of Systems Constitutional: No fever, No chills Respiratory: No cough, No sputum, No shortness of breath Cardiac: No chest pain, No edema, No palpitations Medications Current Inpatient Medications Medications (Trade) Dose Ordered Sig/Tyler Route Start Time Stop Time Status Last Admin Dose Admin Ioversol (Optiray 320) 100 ml UD PRN IV 08/22/17 17:15 08/26/17 17:14 Acetaminophen (Tylenol Tab) 650 mg Q4H PRN PO 08/22/17 21:15 09/21/17 21:14 Al Hydrox/Mg Hydrox/Simethicone (Maalox Max Susp) 15 ml Q4H PRN PO 08/22/17 21:15 09/21/17 21:14 Nitroglycerin (Nitrostat Tab) 0.4 mg UD PRN SL 08/22/17 21:15 09/21/17 21:14 08/23/17 13:54 0.4 MG Aspirin (Ecotrin Tab) 81 mg QAM PO 08/23/17 09:00 09/22/17 08:59 08/24/17 08:28 81 MG Miscellaneous (Iv Fluids Completed) 1 ea PRN PRN N/A 08/22/17 21:15 08/22/18 21:14 Desmopressin Acetate (Desmopressin Acetate) 0.1 mg BID PO 08/23/17 09:00 09/22/17 08:59 08/24/17 08:29 0.1 MG Docusate Sodium (coLACE CAP) 100 mg BID PO 08/23/17 09:00 09/22/17 08:59 08/24/17 08:27 100 MG Duloxetine HCl (Cymbalta Cap) 60 mg DAILY PO 08/23/17 09:00 09/22/17 08:59 08/24/17 08:28 60 MG Loratadine (Claritin Tab) 10 mg DAILY PO 08/23/17 09:00 09/22/17 08:59 08/24/17 08:28 10 MG Meclizine HCl (Antivert Tab) 25 mg TID PRN PO 08/22/17 21:30 09/21/17 21:29 Montelukast Sodium (Singulair Tab) 10 mg HS PO 08/23/17 21:00 09/22/17 20:59 08/23/17 20:44 10 MG Ranitidine HCl (zANTac TAB) 150 mg BID PO 08/23/17 09:00 09/22/17 08:59 08/24/17 08:31 150 MG Simvastatin (Zocor Tab) 20 mg HS PO 08/23/17 21:00 09/22/17 20:59 08/23/17 20:45 20 MG Topiramate (Topamax Tab) 75 mg HS PO 08/23/17 21:00 09/22/17 20:59 08/23/17 20:44 75 MG Trazodone HCl (Desyrel Tab) 100 mg HS PO 08/23/17 21:00 09/22/17 20:59 08/23/17 20:44 100 MG Albuterol (Ventolin Hfa Inhaler) 2 puffs Q4 PRN INH 08/22/17 21:30 09/21/17 21:29 Pantoprazole Sodium (Protonix Tab) 40 mg QAM PO 08/23/17 09:00 09/22/17 08:59 08/24/17 08:28 40 MG Glucose (Glucose 40% Gel) 15-30 GRAMS 15 GRAMS... UD PRN PO 08/22/17 21:30 09/21/17 21:29 Glucose (Glucose Chew Tab) 4-8 Tablets 4 Tabl... UD PRN PO 08/22/17 21:30 09/21/17 21:29 Dextrose (Dextrose 50% 50ML Syringe) 25-50ML OF 50% DW IV FOR... UD PRN IV 08/22/17 21:30 09/21/17 21:29 Glucagon (Glucagon Inj) 1 mg UD PRN SQ 08/22/17 21:30 09/21/17 21:29 Tizanidine HCl (Zanaflex Tab) 2 mg TID PO 08/23/17 21:00 09/22/17 20:59 08/24/17 08:29 2 MG Duloxetine HCl (Cymbalta Cap) 20 mg DAILY PO 08/23/17 12:00 09/22/17 11:59 08/24/17 08:28 20 MG Sodium Chloride 1,000 ml @ 84 mls/hr [id number] IV 08/24/17 00:00 09/23/17 00:00 08/24/17 00:19 84 MLS/HR Diphenhydramine HCl (Benadryl Cap) 50 mg PREOP PO 08/24/17 06:00 08/24/17 12:00 Cimetidine (Tagamet Tab) 300 mg PREOP PO 08/24/17 06:00 08/24/17 12:00 Diphenhydramine HCl (Benadryl Inj) 50 mg PREOP IV 08/24/17 06:00 08/24/17 12:00 Famotidine 20 mg/ Syringe 5 ml @ 2.5 mls/min PREOP IV 08/24/17 06:00 08/24/17 12:00 Insulin Aspart (novoLOG ASPART) SLIDING SCALE If C... Q6 SC 08/24/17 12:00 09/22/17 06:29 Sodium Chloride 1,000 ml @ 50 mls/hr Q20H IV 08/24/17 10:30 09/23/17 10:29 Sodium Chloride 250 ml @ 999 mls/hr Q16M PRN IV 08/24/17 09:26 09/23/17 09:25 Atropine Sulfate (Atropine Sulfate 0.1mg/ml Inj) 0.6 mg PRN PRN IV 08/24/17 09:30 09/23/17 09:29 Ondansetron HCl (Zofran Inj) 4 mg Q6H PRN IV 08/24/17 09:30 09/23/17 09:29 Levothyroxine Sodium (Synthroid Tab) 12.5 mcg DAILYBB PO 08/25/17 06:00 09/22/17 06:59 Objective Vital Signs Date Time Temp Pulse Resp B/P (MAP) Pulse Ox O2 Delivery O2 Flow Rate FiO2 08/24/17 11:00 36.7 57 18 96/62 (73) 94 Room Air 08/24/17 09:50 36.7 60 18 98/62 (74) 91 Room Air 08/24/17 09:38 77 16 123/81 (95) 96 Room Air 08/24/17 09:23 78 16 137/84 (101) 96 Mask 3 08/24/17 08:03 97 Room Air 08/24/17 06:53 36.6 66 18 121/76 (91) 97 Room Air 08/24/17 04:00 Room Air 08/24/17 03:26 36.4 51 18 99/62 (74) 97 Room Air 08/24/17 00:00 Room Air 08/23/17 23:07 36.6 56 18 115/71 (86) 93 Room Air 08/23/17 20:00 97 Room Air 08/23/17 19:39 36.7 58 18 129/77 (94) 95 Room Air 08/23/17 16:00 97 Room Air 08/23/17 15:08 36.6 63 16 100/61 (74) 97 Room Air 08/23/17 13:31 36.5 62 16 112/70 (84) 97 Room Air 08/23/17 12:00 Room Air 08/23/17 12:00 36.8 59 16 117/76 (90) 97 Room Air Physical Exam General Appearance: no apparent distress Respiratory/Chest: lungs clear, normal breath sounds, no respiratory distress, no accessory muscle use Cardiovascular: regular rate, rhythm, no edema, no murmur Extremities: normal inspection, no pedal edema Neurologic/Psychiatric: no motor/sensory deficits, alert, normal mood/affect Skin: normal color Lymphatic: no adenopathy Laboratory Results Last 24 Hours Test 08/23/17 16:12 08/23/17 20:06 08/24/17 06:51 08/24/17 07:19 Bedside Glucose 94 mg/dl 95 mg/dl 142 mg/dl White Blood Count 7.47 K/uL Red Blood Count 4.09 M/uL Hemoglobin 11.8 g/dL Hematocrit 35.2 % Mean Corpuscular Volume 86.1 fL Mean Corpuscular Hemoglobin 28.9 pg Mean Corpuscular Hemoglobin Concent 33.5 g/dl RDW Standard Deviation 46.8 fL RDW Coefficient of Variation 14.8 % Platelet Count 263 K/uL Mean Platelet Volume 10.0 fL Sodium Level 138 mmol/L Potassium Level 3.4 mmol/L Chloride Level 108 mmol/L Carbon Dioxide Level 22 mmol/L Anion Gap 8.0 mmol/L Blood Urea Nitrogen 14 mg/dl Creatinine 0.58 mg/dl Est Creatinine Clear Calc Drug Dose 109.4 ml/min Estimated GFR () 126.3 Estimated GFR (Non- 109.0 BUN/Creatinine Ratio 23.5 Random Glucose 152 mg/dl Calcium Level 8.6 mg/dl Magnesium Level 2.3 mg/dl Thyroid Stimulating Hormone (TSH) 0.176 uIu/ml Test 08/24/17 11:11 Bedside Glucose 132 mg/dl Assessment and Plan This is a 47 year old female with a PMH of pre-diabetes, hyperlipidemia, fibromyalgia, depression/anxiety, hypothyroidism, diabetes insipidus, hx. of PE in January of 2016; no longer on anticoagulation - presents with substernal chest pain Chest Pain r/o ACS 08/24 - cardiac cath performed - normal coronaries noted - plan to d/c home today - no new medications at this time 08/23 - risk factors: pre-diabetes, obesity, hyperlipidemia, family history - stress test performed on 08/23 - equivocal testing - cardiac enzymes negative x3, EKG with no acute changes noted - cardiology consulted; will likely need cardiac cath - patient did have worsening pain with palpation; which would point away from a cardiac origin of the pain - wait for cardiac cath; for now, continue aspirin, statin; may need to up- titrate the Zocor dose - resting echo pending Hx. 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
--- NOTE | 2017-08-24 11:42 | Discharge Instructions ---
Discharge Instructions Date of Service Aug 24, 2017. Admission Reason for Admission: Precordial Chest Pain Discharge Discharge Diagnosis / Problem: [place] Wall Pain Discharge Goals Goal(s): Decrease discomfort, Improve function, Diagnostic testing, Therapeutic intervention Activity Recommendations Activity Limitations: resume your previous activity . Instructions / Follow-Up Instructions / Follow-Up Please follow-up with your primary care physician You will remain on your current medications Current Hospital Diet Patient's current hospital diet: Diabetes Type 2 Diet, AHA Diet (Heart Healthy) Discharge Diet Recommended Diet: AHA Diet (Heart Healthy) Pending Studies Studies pending at discharge: no Laboratory Results Hemoglobin A1c Test 08/23/17 06:18 Range/Units Estimated Average Glucose 128 mg/dl Hemoglobin A1c 6.1 H 4.5-5.6 % Lipid Panel Test 08/23/17 06:18 Range/Units Triglycerides Level 75 0-150 mg/dl Cholesterol Level 158 0-200 mg/dl HDL Cholesterol 56 mg/dl Cholesterol/HDL Ratio 2.8 LDL Cholesterol, Calculated 87 mg/dl Medical Emergencies . Who to Call and When: Medical Emergencies: If at any time you feel your situation is an emergency, please call 911 immediately. . Non-Emergent Contact Non-Emergency issues call your: Primary Care Provider . . "Provider Documentation" section prepared by Amos Szymanski. .
[2017-08-24] MEDS ORDERED: LEVO25TA5 PO (11:45)
[2017-08-24] MEDS ORDERED: ASPEC81 PO (11:45)
--- NOTE | 2017-08-24 11:48 | Discharge Summary ---
Discharge Summary Date of Service Aug 24, 2017. Discharge Summary Admission Date: Aug 22, 2017 at 21:07 Discharge Date: Aug 24, 2017 Discharge Disposition: Home Principal Diagnosis: Chest Wall Tenderness Hx. of PE Hypothyroidism HTN Pre-diabetes Medication Reconciliation New Medications: Aspirin (Aspirin EC Low Dose) 81 Mg Ectab 81 MG PO QAM for 30 Days, #30 TABS Changed Medications: Levothyroxine Sodium (Levothyroxine Sodium) 25 Mcg Tab 12.5 MCG PO QAM for 30 Days, #15 TAB (Changed from: 25 MCG) Continued Medications: Albuterol Sulfate (Proair Respiclick) 108 Mcg/Act Aer 2 PUFFS PO Q4 PRN for SOB/Wheezing Desmopressin Acetate (Desmopressin Acetate) 0.1 Mg Tab 0.1 MG PO BID Docusate Sodium (Colace) 100 Mg Cap 1 CAP PO BID for 15 Days, #30 CAP Duloxetine Hcl (Cymbalta) 60 Mg Cap 80 MG PO DAILY for 90 Days, #117 CAP 3 Refills Estrogens, Conjugated (Premarin) 14 Appln/30 Gm Cr 1 APPLN EXT 2XWK Loratadine (Claritin) 10 Mg Tab 10 MG PO DAILY Meclizine Hcl (Meclizine Hcl) 25 Mg Tab 25 MG PO TID PRN for Dizziness or Vertigo Metformin Hcl Er (Glucophage Er) 500 Mg Tab 500 MG PO QPM, TAB Montelukast Sodium (Singulair) 10 Mg Tab 10 MG PO HS, TAB Omeprazole (Prilosec) 40 Mg Cap 40 MG PO BID, CAP Ranitidine HCl (Ranitidine HCl) 150 Mg Tab 150 MG PO BID Simvastatin (Simvastatin) 20 Mg Tab 20 MG PO HS Tizanidine (Zanaflex) 2 Mg Cap 2 MG PO TID Topiramate (Topamax ) 25 Mg Tab 75 MG PO HS Trazodone Hcl (Trazodone) 100 Mg Tab 100 MG PO HS, TAB Admission Information HPI (per Admitting provider): Patient is a 47-year-old female with a past medical history of pre-diabetes, HLD , hypothyroidism, diabetes insipidus, GERD and other medical problems listed below who presents with chest pain starting today at noon. Patient describes pain as 8/10 tight, stabbing centrally located chest pain with radiation to right shoulder. Pain is worse with exertion and was alleviated in the ED with dose of ntg. Associated shortness of breath. Also endorses bouts of lightheadedness and posterior headaches for the past 2 weeks. Patient had a PE in January 2016 and was on Xarelto. States that this pain is somewhat similar. Also has a history of GERD but states that this pain is not similar. Denies personal history of heart disease but endorses a strong family history. Had an exercise stress test outside hospital that was negative. Denies fever, chills, dizziness, near syncope, visual changes, palpitations, abdominal pain, nausea, vomiting, bowel or bladder changes or LE swelling. Physical Exam (per Admitting): General Appearance: WD/WN, no apparent distress, + obese Head: normocephalic, atraumatic ENT: normal ENT inspection, hearing grossly normal, pharynx normal (moist mucous membranes ) Neck: supple, thyroid normal, trachea midline Respiratory/Chest: lungs clear, normal breath sounds, no respiratory distress, no accessory muscle use, + pertinent finding (Chest wall TTP ) Cardiovascular: regular rate, rhythm, no murmur, normal peripheral pulses Abdomen/GI: non tender, soft, no organomegaly Back: normal inspection Extremities/Musculoskelatal: normal inspection, no calf tenderness, no pedal edema Neurologic/Psych: no motor/sensory deficits, alert, normal mood/affect, oriented x 3 Skin: normal color, warm/dry, no rash Hospital Course This is a 47 year old female with a PMH of pre-diabetes, hyperlipidemia, fibromyalgia, depression/anxiety, hypothyroidism, diabetes insipidus, hx. of PE in January of 2016; no longer on anticoagulation - presents with substernal chest pain Chest Pain r/o ACS 08/24 - cardiac cath performed - normal coronaries noted - plan to d/c home today - no new medications at this time 08/23 - risk factors: pre-diabetes, obesity, hyperlipidemia, family history - stress test performed on 08/23 - equivocal testing - cardiac enzymes negative x3, EKG with no acute changes noted - cardiology consulted; will likely need cardiac cath - patient did have worsening pain with palpation; which would point away from a cardiac origin of the pain - wait for cardiac cath; for now, continue aspirin, statin; may need to up- titrate the Zocor dose - resting echo pending Hx. of PE - in January 2016; now off of anticoagulants as of summer - denies shortness of breath; CTA negative for acute PE - LE dopplers negative for DVTs - CXR - no acute process noted Pre-diabetes - Ha1c = 6.1%, with obesity and other risk factors - counseled on weight loss - insulin sliding scale while inpatient Depression/Anxiety - continue home medications Fibromyalgia - continue home medications Hypothyroidism - continue Synthroid, check TSH Diabetes Insipidus - likely central, continue desmopressin DVT ppx - subq heparin FULL CODE Total time spent on discharge = 25 minutes This includes examination of the patient, discharge planning, medication reconciliation, and communication with other providers. Discharge Instructions Please follow-up with your primary care physician You will remain on your current medications
[2017-08-24] MEDS ORDERED: INSULIN ASPART 100 UNITS/ML 3 ML PEN SC SCH (12:00)
[2017-08-25] MEDS ORDERED: LEVOTHYROXINE 25 MCG TAB PO SCH (06:00)
== END 2017-08-24 16:45 | disposition home or self-care (01) ==
LOC: EDBD 16:32 → C.EDC 16:33 → C.MED 21:07 → ENRESERV 21:28 → C.2T 08-24 10:00
PROVIDERS: ADMIT Internal Medicine; ATTEND Family Medicine
DX: R07.89 Other chest pain (principal); Z86.711 Personal history of pulmonary embolism; E03.9 Hypothyroidism, unspecified; I10 Essential (primary) hypertension; R73.03 Prediabetes; Z79.82 Long term (current) use of aspirin; Z79.899 Other long term (current) drug therapy; E23.2 Diabetes insipidus; E78.5 Hyperlipidemia, unspecified; M79.7 Fibromyalgia; F32.9 Major depressive disorder, single episode, unspecified; Z79.84 Long term (current) use of oral hypoglycemic drugs; J45.909 Unspecified asthma, uncomplicated; Z98.890 Other specified postprocedural states; Z90.49 Acquired absence of other specified parts of digestive tract; Z90.89 Acquired absence of other organs; Z83.3 Family history of diabetes mellitus; Z82.49 Family history of ischemic heart disease and other diseases of the circulatory system; Z84.1 Family history of disorders of kidney and ureter; Z88.0 Allergy status to penicillin; Z88.1 Allergy status to other antibiotic agents; Z88.8 Allergy status to other drugs, medicaments and biological substances

== ENCOUNTER → 2017-09-30 | Outpatient (CLI) | payer OTHER ==
[~2017-09-30] MED LIST changes: +ALBU18002 PO; +ASPI-320 PO; -AZIT250T PO; +CLR10 PO; +DOCU-94 PO; +MECL1TAB42 PO; +PRMVC EXT; +TIZA2CAP PO; +TOPI25TA99 PO; -TOPI50TA16 PO
--- NOTE | 2017-09-30 17:34 | DIAGNOSTIC IMAGING REPORT ---
THORACOLUMBAR SPINE 3 VIEWS CLINICAL HISTORY: T14.8XXA back pain COMPARISON STUDY: Lumbar spine dated 11/24/2015 FINDINGS: There are postsurgical changes of a pedicle screw posterior spinal fusion at the L4-5 level. There is a grade 1 spondylolisthesis of L4 on L5. No acute fractures are visualized. There are surgical clips within the right upper quadrant consistent with a prior cholecystectomy. There is scattered stool within the colon. IMPRESSION: 1. No acute fractures or subluxations identified 2. Postsurgical changes at the L4-5 level. Electronically signed by: Oswaldo Saavedra M.D. 09/30/2017 5:33 PM Dictated Date/Time: 09/30/2017 5:29 PM
== END | disposition home or self-care (01) ==
LOC: C.RAD 16:56
PROVIDERS: ATTEND Nurse Practitioner
DX: T14.8XXA Other injury of unspecified body region, initial encounter (principal); X58.XXXA Exposure to other specified factors, initial encounter